=== PATIENT | male | born 1945 | race Caucasian/White ===

== ENCOUNTER 2017-08-19 10:43 | Day surgery (SDC) | payer MEDICARE, OTHER ==
[~2017-08-19 10:43] MED LIST: CHONDR SU A NA/HYALUR INTRAOC KIT (SURGICARE) ONE; EPINEPHRINE INJ/PF 1 MG/1 ML AMPULE ONE; KETOROLAC TROMETHAMINE 0.45% 4 DROP/0.4 ML DROPERETTE OS PRN; LIDOCAINE 1% INJ-PF (10 MG/ML) 30 ML SDV ONE; TOBRAMYCIN SULFATE/DEXAMETH OPH OINTMENT 3.5 GM ONE
[2017-08-19] MEDS: TROPICAMIDE 1% OPH SOLN 3 ML OS PRN ×3 (11:36→11:52)
[2017-08-19] MEDS: CYCLOPENTOLATE 0.2%/PHENYLEPHRINE 1% OPH SOLN 2 ML OS PRN ×3 (11:36→11:51)
[2017-08-19] MEDS: BESIFLOXACIN HCL 0.6% OPH SUSP 5 ML BOTTLE OS PRN ×3 (11:36→12:13)
[2017-08-19] MEDS: TETRACAINE HCL 0.5% OPH SOLN 0.6 ML DROPERETTE OS PRN ×3 (11:36→11:57)
[2017-08-19] MEDS ORDERED: MIDAZOLAM 2 MG/2 ML INJ ONE (11:42)
== END 2017-08-19 12:57 | disposition home or self-care (01) ==
LOC: SC 10:43
PROVIDERS: ATTEND Ophthalmology
PROC: 08RK3JZ Replacement of Left Lens with Synthetic Substitute, Percutaneous Approach (ICD-10-PCS; principal; 2017-08-19 12:00)
DX: H25.12 Age-related nuclear cataract, left eye (principal); M19.90 Unspecified osteoarthritis, unspecified site; J44.9 Chronic obstructive pulmonary disease, unspecified; Z88.5 Allergy status to narcotic agent; Z88.0 Allergy status to penicillin; Z88.8 Allergy status to other drugs, medicaments and biological substances; Z79.1 Long term (current) use of non-steroidal anti-inflammatories (NSAID)
CPT/HCPCS: 66984; V2630; J2250; J3490 ×3; A9270; J0171; 142

== ENCOUNTER 2017-09-02 06:22 | Day surgery (SDC) | payer MEDICARE, OTHER ==
[~2017-09-02 06:22] MED LIST changes: -CHONDR SU A NA/HYALUR INTRAOC KIT (SURGICARE) ONE; -EPINEPHRINE INJ/PF 1 MG/1 ML AMPULE ONE; +KETOROLAC TROMETHAMINE 0.45% 4 DROP/0.4 ML DROPERETTE OD PRN; -KETOROLAC TROMETHAMINE 0.45% 4 DROP/0.4 ML DROPERETTE OS PRN; -LIDOCAINE 1% INJ-PF (10 MG/ML) 30 ML SDV ONE; -TOBRAMYCIN SULFATE/DEXAMETH OPH OINTMENT 3.5 GM ONE
[2017-09-02] MEDS: CYCLOPENTOLATE 0.2%/PHENYLEPHRINE 1% OPH SOLN 2 ML OD PRN ×3 (06:40→07:00)
[2017-09-02] MEDS: TETRACAINE HCL 0.5% OPH SOLN 0.6 ML DROPERETTE OD PRN ×3 (06:40→07:29)
[2017-09-02] MEDS: TROPICAMIDE 1% OPH SOLN 3 ML OD PRN ×3 (06:40→07:00)
[2017-09-02] MEDS: BESIFLOXACIN HCL 0.6% OPH SUSP 5 ML BOTTLE OD PRN ×3 (06:41→07:50)
[2017-09-02] MEDS ORDERED: ALBUTEROL SULFATE 0.083% NEB 2.5 MG/3 ML AMPUL NEB ONE (07:05)
[2017-09-02] MEDS ORDERED: MIDAZOLAM 2 MG/2 ML INJ ONE (07:06)
[2017-09-02] MEDS ORDERED: FENTANYL CITRATE INJ/PF 100 MCG/2 ML AMPUL ONE (07:07)
[2017-09-02] MEDS ORDERED: EPINEPHRINE INJ/PF 1 MG/1 ML AMPULE ONE (07:12)
[2017-09-02] MEDS ORDERED: BESIFLOXACIN HCL 0.6% OPH SUSP 5 ML BOTTLE ONE (07:12)
[2017-09-02] MEDS ORDERED: LIDOCAINE 1% INJ-PF (10 MG/ML) 30 ML SDV ONE (07:12)
[2017-09-02] MEDS ORDERED: CHONDR SU A NA/HYALUR INTRAOC KIT (SURGICARE) ONE (07:12)
[2017-09-02] MEDS ORDERED: TOBRAMYCIN SULFATE/DEXAMETH OPH OINTMENT 3.5 GM ONE (07:13)
== END 2017-09-02 08:35 | disposition home or self-care (01) ==
LOC: SC 06:22
PROVIDERS: ATTEND Ophthalmology
PROC: 08RJ3JZ Replacement of Right Lens with Synthetic Substitute, Percutaneous Approach (ICD-10-PCS; principal; 2017-09-02 07:30)
DX: H25.11 Age-related nuclear cataract, right eye (principal); Z98.42 Cataract extraction status, left eye; M19.90 Unspecified osteoarthritis, unspecified site; Z79.1 Long term (current) use of non-steroidal anti-inflammatories (NSAID); Z88.5 Allergy status to narcotic agent; Z88.0 Allergy status to penicillin; Z88.2 Allergy status to sulfonamides
CPT/HCPCS: 66984; V2630; J2250; J3490 ×3; A9270 ×3; J0171; J3010; 142

== ENCOUNTER 2018-08-12 13:05 | Inpatient (IN) | payer MEDICARE, OTHER ==
[2018-08-12 13:55] LABS: VENOUS BLOOD HCO3 32.5 mmol/L (20-32); VENOUS BLOOD PCO2 44.8 mmHg (35-63); VENOUS BLOOD PH 7.48 (7.30-7.42)
[2018-08-12 14:03] LABS: ALANINE AMINOTRANSFERASE 15 U/L (21-72); ALBUMIN 3.2 g/dL (3.5-5.0); ALKALINE PHOSPHATASE 110 U/L (38-126); ANION GAP 9 (5-19); ASPARTATE AMINO TRANSFERASE 36 U/L (17-59); BILIRUBIN,DIRECT 0.4 mg/dL (0.0-0.4); BILIRUBIN,TOTAL 0.5 mg/dL (0.2-1.3); BLOOD UREA NITROGEN 16 mg/dL (7-20); CALCIUM 8.7 mg/dL (8.4-10.2); CARBON DIOXIDE 30 mmol/L (22-30); CHLORIDE 96 mmol/L (98-107); CREATINE KINASE 26 U/L (55-170); GLUCOSE 131 mg/dL (75-110); POTASSIUM 4.3 mmol/L (3.6-5.0); SODIUM 135.4 mmol/L (137-145); TOTAL PROTEIN 6.1 g/dL (6.3-8.2)
[2018-08-12 14:14] LABS: CREATINE KINASE MB 0.79 ng/mL (<4.55); TROPONIN I 0.014 ng/mL
--- NOTE | 2018-08-12 14:15 | RADIOLOGY REPORT (SQ) ---
EXAM DESCRIPTION: CHEST SINGLE VIEW COMPLETED DATE/TIME: 08/12/2018 2:06 pm REASON FOR STUDY: Shortness of Breath COMPARISON: None. EXAM PARAMETERS: NUMBER OF VIEWS: One view. TECHNIQUE: Single frontal radiographic view of the chest acquired. RADIATION DOSE: NA LIMITATIONS: None. FINDINGS: LUNGS AND PLEURA: Marked loss of volume on the left. Cannot exclude a small left pleural effusion. There is opacification in the left lower lung field. The right lung is hyperexpanded and there is perhaps ill-defined opacification in the medial aspect of the right base. MEDIASTINUM AND HILAR STRUCTURES: No masses. Contour normal. HEART AND VASCULAR STRUCTURES: Heart normal in size. Normal vasculature. BONES: No acute findings. HARDWARE: None in the chest. OTHER: No other significant finding. IMPRESSION: Marked loss of volume on the left. Lobectomy. Cannot exclude airspace disease in the l eft base. Cannot exclude small left pleural effusion. Cannot exclude minimal airspace disease in th e medial right base. TECHNICAL DOCUMENTATION: JOB ID: [id number] [employer]- All Rights Reserved Reading location - IP/workstation name: [email or web address]
[2018-08-12 14:45] LABS: ARTERIAL BLOOD BASE EXCESS 7.3 mmol/L; ARTERIAL BLOOD H2CO3 1.19 mmol/L (1.05-1.35); ARTERIAL BLOOD HCO3 30.9 mmol/L (20-24); ARTERIAL BLOOD PCO2 39.6 mmHg (35-45); ARTERIAL BLOOD PH 7.51 (7.35-7.45); ARTERIAL BLOOD PO2 59.5 mmHg (80-100); ARTERIAL BLOOD TOTAL CO2 32.1 mmol/L (23-27)
[2018-08-12 14:46] LABS: ARTERIAL BLOOD FIO2 5L
--- NOTE | 2018-08-12 15:09 | ER Document Report ---
ED General <DION DOLL A - Last Filed: 08/12/18 17:44> - General TRAVEL OUTSIDE OF THE [place] IN LAST 30 DAYS: No <ADOLPH SINGLETON A - Last Filed: 08/12/18 18:41> - General Chief Complaint: Shortness Of Breath Stated Complaint: SHORTNESS OF BREATH Time Seen by Provider: 08/12/18 13:53 - HPI Notes: Patient is a 72-year-old male that presents to the emergency department for chief complaint of chest pain and shortness of breath. Patient has been having intermittent chest pain throughout today. He did have EMS to the house earlier but declined transportation to the hospital. Later patient became more diaphoretic and short of breath. He has lung cancer and had left lobectomy on 07/[address] Christianson at [facility]. Patient was discharged from [facility] on 08/05/18. He states he has had no improvement since getting home but feels he is now getting worse. He is currently not experiencing the chest pain. Patient states he wears 2 L of oxygen at rest and 3 when he is up ambulating. Patient was on BiPAP initially with EMS for increased work of breathing however they are machine broke and he was placed on nasal cannula. Patient does not wish to be placed back on BiPAP at this time. He denies any fevers, vomiting, abdominal pain and dysuria Past Medical History: Lung carcinoma, COPD Past Surgical History: Left lobectomy Social History: Reviewed in chart Family History: Reviewed and noncontributory for presenting illness Allergies: Reviewed, see documented allergy list. REVIEW OF SYSTEMS: CONSTITUTIONAL : No fever No chills diaphoresis No recent illness EENT: No vision changes No congestion No sore throat CARDIOVASCULAR: chest pain No palpitations RESPIRATORY: shortness of breath No cough difficulty breathing GASTROINTESTINAL: No abdominal pain No nausea No vomiting No diarrhea GENITOURINARY: No dysuria No hematuria No difficulty urinating MUSCULOSKELETAL: No back pain No leg pain No arm pain SKIN: No rashes No lesions LYMPHATIC: No swollen, enlarged glands. NEUROLOGICAL: No lightheadedness No headache No weakness No paresthesias PSYCHIATRIC: No anxiety No depression PHYSICAL EXAMINATION: Vital signs reviewed, nursing noted reviewed. GENERAL: Diaphoretic, ill-appearing, in moderate distress HEAD: Atraumatic, normocephalic. EYES: Eyes appear normal, extraocular movements intact, sclera anicteric, conjunctiva are normal. ENT: nares patent, oropharynx clear without exudates. Dry mucous membranes. NECK: Normal range of motion, supple without lymphadenopathy LUNGS: Diminished breath sounds with expiratory wheezing bilaterally, tachypnea, moderate accessory muscle use HEART: Tachycardic rate and regular rhythm without murmurs ABDOMEN: Soft, nontender, normoactive bowel sounds. No rebound, guarding, or rigidity. No masses appreciated. EXTREMITIES: Nontender, good range of motion, no pitting or edema. NEUROLOGICAL: No focal neurological deficits. Moves all extremities spontaneously Motor and sensory grossly intact on exam. PSYCH: Normal mood, normal affect. SKIN: Warm, Dry, normal turgor, no rashes or lesions noted on exposed skin (ADOLPH SINGLETON) - Related Data Allergies/Adverse Reactions: Penicillins Allergy (Severe, Verified 09/02/17 06:35) shock clarithromycin Allergy (Verified 08/19/17 11:41) fluconazole [From Diflucan] Allergy (Verified 08/19/17 11:41) Tachycardia indomethacin [From Indocin] Allergy (Verified 08/19/17 11:41) Migraine meperidine [From Demerol] Allergy (Verified 08/19/17 11:41) Syncope pseudoephedrine [From Sudafed] Allergy (Verified 09/02/17 06:35) tremor Past Medical History - Social History Family History: Reviewed & Not Pertinent <DION DOLL - Last Filed: 08/12/18 17:44> - Social History Smoking Status: Unknown if Ever Smoked Patient has suicidal ideation: No Patient has homicidal ideation: No - Past Medical History Cardiac Medical History: Denies: Hx Heart Attack, Hx Hypertension Pulmonary Medical History: Denies: Hx Asthma Neurological Medical History: Denies: Hx Cerebrovascular Accident, Hx Seizures Renal/ Medical History: Denies: Hx Peritoneal Dialysis GI Medical History: Denies: Hx Hepatitis, Hx Hiatal Hernia, Hx Ulcer Infectious Medical History: Denies: Hx Hepatitis Past Surgical History: Denies: Hx Open Heart Surgery, Hx Pacemaker <ADOLPH SINGLETON - Last Filed: 08/12/18 18:41> - Vital signs Vitals: Temp Resp BP Pulse Ox 98.0 F 23 H 103/62 89 L 08/12/18 13:13 08/12/18 13:13 08/12/18 13:13 08/12/18 13:13 Course - Laboratory Result Diagrams: 08/12/18 16:07 08/12/18 13:15 <DION DOLL - Last Filed: 08/12/18 17:44> - Laboratory Result Diagrams: 08/12/18 16:07 08/12/18 13:15 <SINGLETONADOLPH Charlette - Last Filed: 08/12/18 18:41> - Re-evaluation Re-evalutation: Patient was reportedly accepted for transfer. Transfer center calls back stating that it is going to be several hours until the patient would have a bed. Still have not been able to talk with patient's cardiothoracic surgeon, Dr. Christianson. I have spent a significant amount of time at the bedside talking to the family as well as the patient. At this time I am making the patient a full code. Patient has not seen oncology. This is a recent diagnosis of lung cancer and is in the acute postoperative phase. There is potentially could have a pulmonary embolism. At this time I am repeating the CTA of the chest. Given him another breathing treatment. We will treat him with some pain medication. Will attempt to consult with Karrie Cooley with regards to this patient. 08/12/18 17:29 (DION DOLL) 08/12/18 15:06 Vitals reviewed. Nursing notes reviewed. Patient was hypoxic when EMS arrived at 70% on his home 3 L nasal cannula oxygen. They did place him on CPAP which he was tolerating until the machine broke. Patient does not wish to be placed back on CPAP currently. He is oxygenating at the low 90s on 5 L nasal cannula. He does have moderate increased work of breathing and is diaphoretic. Patient was given aerosols and Solu-Medrol for COPD. The Solu-Medrol was given by EMS prior to arrival. On reevaluation he reports no improvement of symptoms. His oxygen status is the same. ABG shows hypoxia. I again recommended BiPAP which he is hoping to refrain from using still. I had a long conversation with alexandria wahl and his family regarding CODE STATUS. He does wish to have chest compression performed and states he is not ready to but does not want to be placed on the ventilator. He understands that without intubation in certain situations he may go into cardiac arrest which he is okay with. Patient expresses a desire to not be in a vegetative state on a ventilator. Because of his extensive care at [facility] including cardiothoracic surgery he will be transferred back to [facility] for further pulmonary care. Patient in agreement with this plan. I currently have a call out to [facility] and I am awaiting callback for transfer. Laboratory 08/12/18 08/12/18 08/12/18 13:15 13:15 13:15 Carbonic Acid HCO3/H2CO3 Ratio ABG pH ABG pCO2 ABG pO2 ABG HCO3 ABG Total CO2 ABG O2 Saturation ABG Base Excess VBG pH VBG pCO2 VBG HCO3 VBG Base Excess FiO2 Sodium 135.4 L Potassium 4.3 Chloride 96 L Carbon Dioxide 30 Anion Gap 9 BUN 16 Creatinine 0.69 Est GFR ( Amer) > 60 Est GFR (Non-Af Amer) > 60 Glucose 131 H Lactic Acid 1.5 Calcium 8.7 Total Bilirubin 0.5 Direct Bilirubin 0.4 Neonat Total Bilirubin Not Reportable Neonat Direct Bilirubin Not Reportable Neonat Indirect Bili Not Reportable AST 36 ALT 15 L Alkaline Phosphatase 110 Creatine Kinase 26 L CK-MB (CK-2) 0.79 Troponin I 0.014 NT-Pro-B Natriuret Pep 996 H Total Protein 6.1 L Albumin 3.2 L 08/12/18 08/12/18 13:15 14:18 Carbonic Acid 1.19 HCO3/H2CO3 Ratio 25:1 ABG pH 7.51 H ABG pCO2 39.6 ABG pO2 59.5 L ABG HCO3 30.9 H ABG Total CO2 32.1 H ABG O2 Saturation 93.0 L ABG Base Excess 7.3 VBG pH 7.48 H VBG pCO2 44.8 VBG HCO3 32.5 H VBG Base Excess 8.0 FiO2 5L Sodium Potassium Chloride Carbon Dioxide Anion Gap BUN Creatinine Est GFR ( Amer) Est GFR (Non-Af Amer) Glucose Lactic Acid Calcium Total Bilirubin Direct Bilirubin Neonat Total Bilirubin Neonat Direct Bilirubin Neonat Indirect Bili AST ALT Alkaline Phosphatase Creatine Kinase CK-MB (CK-2) Troponin I NT-Pro-B Natriuret Pep Total Protein Albumin Chest X-Ray 08/12/18 13:37 IMPRESSION: Marked loss of volume on the left. Lobectomy. Cannot exclude airspace disease in the left base. Cannot exclude small left pleural effusion. Cannot exclude minimal airspace disease in the medial right base. Patients care signed over to Dr. Doll, plan to transfer to [facility] for CT surgery care. Awaiting call back from CT surgery. (ADOLPH SINGLETON) - Vital Signs Vital signs: Temp Pulse Resp BP Pulse Ox 98.0 F 23 H 103/62 88 L 08/12/18 13:13 08/12/18 13:13 08/12/18 13:13 08/12/18 13:40 - Laboratory Laboratory results interpreted by me: 08/12/18 08/12/18 08/12/18 13:15 13:15 13:15 WBC RBC Hgb Hct RDW Plt Count Seg Neuts % (Manual) Lymphocytes % (Manual) Monocytes % (Manual) Abs Neuts (Manual) ABG pH ABG pO2 ABG HCO3 ABG Total CO2 ABG O2 Saturation VBG pH 7.48 H VBG HCO3 32.5 H Sodium 135.4 L Chloride 96 L Glucose 131 H ALT 15 L Creatine Kinase 26 L NT-Pro-B Natriuret Pep 996 H Total Protein 6.1 L Albumin 3.2 L 08/12/18 08/12/18 14:18 16:07 WBC 13.3 H RBC 4.22 L Hgb 11.7 L Hct 35.7 L RDW 21.4 H Plt Count 558 H Seg Neuts % (Manual) 95 H Lymphocytes % (Manual) 4 L Monocytes % (Manual) 1 L Abs Neuts (Manual) 12.6 H ABG pH 7.51 H ABG pO2 59.5 L ABG HCO3 30.9 H ABG Total CO2 32.1 H ABG O2 Saturation 93.0 L VBG pH VBG HCO3 Sodium Chloride Glucose ALT Creatine Kinase NT-Pro-B Natriuret Pep Total Protein Albumin - EKG Interpretation by Me Additional EKG results interpreted by me: 08/12/18 15:11 Interpreted by myself [id number]: Normal sinus rhythm, rate 80, normal axis, no ectopy, diffuse T wave flattening, no STEMI (ADOLPH SINGLETON) Critical Care Note - Critical Care Note Total time excluding time spent on procedures (mins): 36 <ADOLPH SINGLETON - Last Filed: 08/12/18 18:41> - Critical Care Note Comments: 36 Minutes of critical care time spent in direct contact evaluating and reevaluating the patient, treating symptoms, reviewing labs and studies and speaking with family and consultants excluding any procedures. Patient has had potential for respiratory decompensation. Multiple conversations with patient, family and specialty services (ADOLPH SINGLETON) Discharge <DION DOLL - Last Filed: 08/12/18 17:44> <ADOLPH SINGLETON - Last Filed: 08/12/18 18:41> - Discharge Clinical Impression: Hypoxia, Respiratory distress, Pleural effusion, left Dyspnea Qualifiers: Dyspnea type: shortness of breath Qualified Code(s): R06.02 - Shortness of breath Condition: Stable Disposition: ADMITTED INPATIENT
[2018-08-12] MEDS ORDERED: NORMAL SALINE 1000 ML 1,000 ML IV ONE (15:12)
[2018-08-12] MEDS ORDERED: ALBUTEROL SULFATE 0.083% NEB 2.5 MG/3 ML AMPUL NEB ONE ×2 (15:18→17:26)
[2018-08-12 16:39] LABS: HEMATOCRIT 35.7 % (37.9-51.0); HEMOGLOBIN 11.7 g/dL (13.5-17.0); MEAN CORPUSCULAR HEMOGLOBIN 27.7 pg (27.0-33.4); MEAN CORPUSCULAR HGB CONC 32.7 g/dL (32.0-36.0); MEAN CORPUSCULAR VOLUME 85 fl (80-97); PLATELET COUNT 558 10^3/uL (150-450); RED BLOOD COUNT 4.22 10^6/uL (4.35-5.55); RED CELL DISTRIBUTION WIDTH 21.4 % (11.5-14.0); WHITE BLOOD COUNT 13.3 10^3/uL (4.0-10.5)
[2018-08-12 17:07] LABS: ABSOLUTE LYMPHOCYTES# (MANUAL) 0.5 10^3/uL (0.5-4.7); ABSOLUTE MONOCYTES # (MANUAL) 0.1 10^3/uL (0.1-1.4); ABSOLUTE NEUTROPHILS# (MANUAL) 12.6 10^3/uL (1.7-8.2); BASOPHILS % (MANUAL) 0 % (0-2); EOSINOPHILS % (MANUAL) 0 % (0-6); LYMPHOCYTES % (MANUAL) 4 % (13-45); MONOCYTES % (MANUAL) 1 % (3-13); SEGMENTED NEUTROPHILS % (MAN) 95 % (42-78); TOTAL CELLS COUNTED 100
[2018-08-12 17:08] LABS: ANISOCYTOSIS 3+; OVALOCYTES SLIGHT; PLATELET COMMENT INCREASED; POIKILOCYTOSIS SLIGHT; TARGET CELLS SLIGHT
[2018-08-12] MEDS ORDERED: FENTANYL CITRATE INJ/PF 100 MCG/2 ML AMPUL IV ONE (17:27)
[2018-08-12] MEDS ORDERED: KETOROLAC TROMETHAMINE INJ/PF 30 MG/1 ML SDV IV ONE (17:27)
[2018-08-12] MEDS ORDERED: LEVOFLOXACIN 500 MG/D5W RTU 500 MG/100 ML RTUPB IV ONE (18:00)
--- NOTE | 2018-08-12 18:01 | ER Document Report ---
ED General - General Chief Complaint: Shortness Of Breath Stated Complaint: SHORTNESS OF BREATH Time Seen by Provider: 08/12/18 13:53 Notes: Asked to come to the bedside to evaluate patient who is set up for transfer. (Please see Dr. Blancas's note for further evaluation.) Patient feels a little bit better at this time. Initially had oxygen saturations in the 70s. Received breathing treatments and Solu-Medrol. Patient is approximately 3 weeks postop from lung resection for adenocarcinoma. Has not seen oncology yet. Patient has been seen at [facility] in [facility]. TRAVEL OUTSIDE OF THE [place] IN LAST 30 DAYS: No - HPI Onset: Just prior to arrival Onset/Duration: Gradual, Worse Quality of pain: Achy Severity: Severe Pain Level: 5 Associated symptoms: Shortness of breath - Related Data Allergies/Adverse Reactions: Penicillins Allergy (Severe, Verified 09/02/17 06:35) shock clarithromycin Allergy (Verified 08/19/17 11:41) fluconazole [From Diflucan] Allergy (Verified 08/19/17 11:41) Tachycardia indomethacin [From Indocin] Allergy (Verified 08/19/17 11:41) Migraine meperidine [From Demerol] Allergy (Verified 08/19/17 11:41) Syncope pseudoephedrine [From Sudafed] Allergy (Verified 09/02/17 06:35) tremor Past Medical History - General Information source: Patient, Relative - Social History Smoking Status: Former Smoker Frequency of alcohol use: None Drug Abuse: None Lives with: Family, Spouse/Significant other Family History: Reviewed & Not Pertinent Patient has suicidal ideation: No Patient has homicidal ideation: No - Past Medical History Cardiac Medical History: Denies: Hx Heart Attack, Hx Hypertension Pulmonary Medical History: Denies: Hx Asthma Neurological Medical History: Denies: Hx Cerebrovascular Accident, Hx Seizures Renal/ Medical History: Denies: Hx Peritoneal Dialysis Malignancy Medical History: Reports Hx Lung Cancer GI Medical History: Denies: Hx Hepatitis, Hx Hiatal Hernia, Hx Ulcer Infectious Medical History: Denies: Hx Hepatitis Past Surgical History: Denies: Hx Open Heart Surgery, Hx Pacemaker Review of Systems - Review of Systems Notes: Constitutional: denies: Chills, Diaphoresis, Fever, + Malaise, Weakness EENT: denies: Eye discharge, Blurred vision, Tearing, Double vision, Nose congestion, Nose discharge, Throat swelling, Mouth pain Cardiovascular: denies: Palpitations, Heart racing, Orthopnea, Dyspnea, Chest pain Respiratory: denies: Cough, +Hurts to breathe, +Wheezing, + Shortness of breath Gastrointestinal: denies: Abdominal pain, Diarrhea, Nausea, Vomiting, Black stools, bright red blood in stool Genitourinary: denies: Burning, Dysuria, Discharge, Frequency, Flank pain, Hematuria Musculoskeletal: denies: Joint pain, Joint swelling, Muscle pain, Muscle stiffness, +back pain Hematologic/Lymphatic: denies: Anemia, Easy bleeding, Easy bruising, Blood clots Neurological/Psychological: denies: Confusion, Dementia, Depression, Loss of consciousness Skin: No lesions, no masses, no skin breakdown, no abscesses Physical Exam - Vital signs Vitals: Temp Resp BP Pulse Ox 98.0 F 23 H 103/62 89 L 08/12/18 13:13 08/12/18 13:13 08/12/18 13:13 08/12/18 13:13 Interpretation: Tachycardic, Tachypneic - General General appearance: Alert In distress: Moderate Notes: Frail, cachectic - HEENT Head: Normocephalic, Atraumatic Eyes: Normal Pupils: PERRL - Respiratory Respiratory status: Respiratory distress, Tachypnea Chest status: Nontender Breath sounds: Rales Chest palpation: Normal - Cardiovascular Rhythm: Tachycardia Heart sounds: Normal auscultation Murmur: No - Abdominal Inspection: Normal Distension: No distension Bowel sounds: Normal Tenderness: Nontender Organomegaly: No organomegaly - Back Back: Normal, Nontender - Extremities General upper extremity: Normal inspection, Nontender, Normal color, Normal ROM, Normal temperature General lower extremity: Normal inspection, Nontender, Normal color, Normal ROM, Normal temperature. No: Jan's sign - Neurological Neuro grossly intact: Yes Cognition: Normal Orientation: AAOx4 [place] Coma Scale Eye Opening: Spontaneous [place] Coma Scale Verbal: Oriented [place] Coma Scale Motor: Obeys Commands [place] Coma Scale Total: 15 Speech: Normal Motor strength normal: LUE, RUE, LLE, RLE Sensory: Normal - Psychological Associated symptoms: Normal affect, Normal mood - Skin Skin Temperature: Warm Skin Moisture: Dry Skin Color: Normal Course - Re-evaluation Re-evalutation: 08/12/18 18:03 Long discussion had at the bedside. Patient is a full code now. No beds are available at [facility]. I did discuss the case with the ICU attending there. They do not believe that he meets criteria for ICU at their hospital. At this time I do feel patient needs to be admitted. I am ordering a CTA of the chest. Will start him on antibiotics. Still have not been able to speak with the cardiothoracic surgeon. Will speak with hospitalist here for admission. - Vital Signs Vital signs: Temp Pulse Resp BP Pulse Ox 97.8 F 30 H 103/79 91 L 08/12/18 20:06 08/12/18 20:01 08/12/18 20:00 08/12/18 20:00 - Laboratory Result Diagrams: 08/12/18 16:07 08/12/18 13:15 Laboratory results interpreted by me: 08/12/18 08/12/18 08/12/18 13:15 13:15 13:15 WBC RBC Hgb Hct RDW Plt Count Seg Neuts % (Manual) Lymphocytes % (Manual) Monocytes % (Manual) Abs Neuts (Manual) ABG pH ABG pO2 ABG HCO3 ABG Total CO2 ABG O2 Saturation VBG pH 7.48 H VBG HCO3 32.5 H Sodium 135.4 L Chloride 96 L Glucose 131 H ALT 15 L Creatine Kinase 26 L NT-Pro-B Natriuret Pep 996 H Total Protein 6.1 L Albumin 3.2 L 08/12/18 08/12/18 14:18 16:07 WBC 13.3 H RBC 4.22 L Hgb 11.7 L Hct 35.7 L RDW 21.4 H Plt Count 558 H Seg Neuts % (Manual) 95 H Lymphocytes % (Manual) 4 L Monocytes % (Manual) 1 L Abs Neuts (Manual) 12.6 H ABG pH 7.51 H ABG pO2 59.5 L ABG HCO3 30.9 H ABG Total CO2 32.1 H ABG O2 Saturation 93.0 L VBG pH VBG HCO3 Sodium Chloride Glucose ALT Creatine Kinase NT-Pro-B Natriuret Pep Total Protein Albumin Critical Care Note - Critical Care Note Total time excluding time spent on procedures (mins): 45 Comments: Tachycardia, hypoxia, consultation with specialist, Discharge - Discharge Clinical Impression: Hypoxia, Respiratory distress, Pleural effusion, left Dyspnea Qualifiers: Dyspnea type: shortness of breath Qualified Code(s): R06.02 - Shortness of breath Condition: Stable Disposition: ADMITTED INPATIENT Admitting Provider: Nayeliist [facility] Unit Admitted: ICU
[2018-08-12] MEDS ORDERED: ONDANSETRON HCL INJ/PF 4 MG/2 ML SDV IV PRN (18:37)
[2018-08-12] MEDS ORDERED: LORAZEPAM 0.5 MG TABLET PO PRN (18:43)
--- NOTE | 2018-08-12 19:01 | PDOC H&P ---
History of Present Illness Admission Date/PCP: 08/12/18 18:20 OLIVERIO TORRES MD Patient complains of: Came with shortness of breath and chest pain History of Present Illness: ESTEBAN CHOI is a 72 year old male with history of lung cancer with lung resection in the [facility] last month, history of anxiety disorder, chronic smoker came to the emergency room brought to the emergency room rather by the family members with complaints of increasing shortness of breath and chest pain. Family is also saying he has underlying COPD. This morning after eating amanda akfast he felt chest pain in the epigastric region chest pain was so bad 10 x 10 911 called the EMS came by the time patient was chest pain-free vital signs are stable and without further management EMS left again after lunch he is having the severe shortness of breath and chest pains compared to the family he feels like he is about to EMS was called again and they follow the pulse ox here is around 70% brought to the emergency room for further evaluation. In the emergency room he was initially placed on BiPAP and [facility] was notified and the ER physician talked to the surgeon they to transfer the patient unfortunately they do not have any beds available in the ICU in case if the patient is intubated here they are willing to accept the patient updated. So medical consult was called for admission to the ICU. I went to talk to the patient and the family members they want him a full code patient wants to be full code. Confirmed history the ER physician told me about shortness of breath and associated chest pains. CT of the chest was ordered in the ER and which was pending. The ABG shows P O2 of 59.5. PCO2 39.6. Patient is hyperventilating with pH of 7.5. Past Medical History Cardiac Medical History: Denies: Myocardial Infarction, Hypertension Pulmonary Medical History: Denies: Asthma Neurological Medical History: Denies: Seizures Malignancy Medical History: Reports: Lung Cancer GI Medical History: Denies: Hepatitis, Hiatal Hernia Hematology: Denies: Anemia, Sickle Cell Disease Past Surgical History Past Surgical History: Reports: Other - Patient has 2 back surgeries left-sided partial lung resection Denies: Pacemaker Social History Lives with: Family, Spouse/Significant other Smoking Status: Former Smoker Frequency of Alcohol Use: None Hx Recreational Drug Use: No Hx Prescription Drug Abuse: No - Advance Directive Resuscitation Status: Full Code Family History Family History: Reviewed & Not Pertinent Parental Family History Reviewed: Yes - daughter had a breast cancer. Children Family History Reviewed: Yes Sibling(s) Family History Reviewed.: Unknown Medication/Allergy Home Medications: Ascorbic Acid [Vitamin C] 1,000 mg PO DAILY 08/12/17 Cetirizine HCl [Allergy] 10 mg PO ASDIR PRN 08/12/17 Docusate Calcium [Stool Softener] 240 mg PO ASDIR PRN 08/12/17 Ibuprofen 800 mg PO ASDIR PRN 08/12/17 Allergies/Adverse Reactions: Penicillins Allergy (Severe, Verified 09/02/17 06:35) shock clarithromycin Allergy (Verified 08/19/17 11:41) fluconazole [From Diflucan] Allergy (Verified 08/19/17 11:41) Tachycardia indomethacin [From Indocin] Allergy (Verified 08/19/17 11:41) Migraine meperidine [From Demerol] Allergy (Verified 08/19/17 11:41) Syncope pseudoephedrine [From Sudafed] Allergy (Verified 09/02/17 06:35) tremor Review of Systems Constitutional: ABSENT: fever(s), headache(s), weight gain, weight loss Eyes: ABSENT: visual disturbances Ears: ABSENT: hearing changes Nose, Mouth, and Throat: ABSENT: sore throat Respiratory: PRESENT: cough Gastrointestinal: ABSENT: constipation, nausea, vomiting Psychiatric: ABSENT: anxiety, depression, homidical ideation, suicidal ideation Physical Exam Vital Signs: Temp Pulse Resp BP Pulse Ox 98.0 F 23 H 103/62 88 L 08/12/18 13:13 08/12/18 13:13 08/12/18 13:13 08/12/18 13:40 General appearance: PRESENT: no acute distress Eye exam: PRESENT: PERRLA Teeth exam: PRESENT: dental tenderness Neck exam: ABSENT: carotid bruit, JVD, lymphadenopathy, thyromegaly Respiratory exam: PRESENT: decreased breath sounds Cardiovascular exam: PRESENT: tachycardia GI/Abdominal exam: PRESENT: normal bowel sounds, soft. ABSENT: distended, guarding, mass, organolmegaly, rebound, tenderness Extremities exam: PRESENT: full ROM. ABSENT: calf tenderness, clubbing, pedal edema Neurological exam: PRESENT: alert, awake, oriented to person, oriented to place, oriented to time, oriented to situation, CN II-XII grossly intact. ABSENT: motor sensory deficit Psychiatric exam: PRESENT: appropriate affect, normal mood. ABSENT: homicidal ideation, suicidal ideation Results Laboratory Results: 08/12/18 16:07 08/12/18 13:15 08/12/18 08/12/18 08/12/18 13:15 13:15 13:15 WBC RBC Hgb Hct MCV MCH MCHC RDW Plt Count Seg Neutrophils % Lymphocytes % Monocytes % Eosinophils % Basophils % Absolute Neutrophils Absolute Lymphocytes Absolute Monocytes Absolute Eosinophils Absolute Basophils Carbonic Acid HCO3/H2CO3 Ratio ABG pH ABG pCO2 ABG pO2 ABG HCO3 ABG O2 Saturation ABG Base Excess VBG pH 7.48 H VBG pCO2 44.8 VBG HCO3 32.5 H VBG Base Excess 8.0 FiO2 Sodium 135.4 L Potassium 4.3 Chloride 96 L Carbon Dioxide 30 Anion Gap 9 BUN 16 Creatinine 0.69 Est GFR ( Amer) > 60 Est GFR (Non-Af Amer) > 60 Glucose 131 H Lactic Acid 1.5 Calcium 8.7 Total Bilirubin 0.5 AST 36 ALT 15 L Alkaline Phosphatase 110 Total Protein 6.1 L Albumin 3.2 L 08/12/18 08/12/18 14:18 16:07 WBC 13.3 H RBC 4.22 L Hgb 11.7 L Hct 35.7 L MCV 85 MCH 27.7 MCHC 32.7 RDW 21.4 H Plt Count 558 H Seg Neutrophils % Not Reportable Lymphocytes % Not Reportable Monocytes % Not Reportable Eosinophils % Not Reportable Basophils % Not Reportable Absolute Neutrophils Not Reportable Absolute Lymphocytes Not Reportable Absolute Monocytes Not Reportable Absolute Eosinophils Not Reportable Absolute Basophils Not Reportable Carbonic Acid 1.19 HCO3/H2CO3 Ratio 25:1 ABG pH 7.51 H ABG pCO2 39.6 ABG pO2 59.5 L ABG HCO3 30.9 H ABG O2 Saturation 93.0 L ABG Base Excess 7.3 VBG pH VBG pCO2 VBG HCO3 VBG Base Excess FiO2 5L Sodium Potassium Chloride Carbon Dioxide Anion Gap BUN Creatinine Est GFR ( Amer) Est GFR (Non-Af Amer) Glucose Lactic Acid Calcium Total Bilirubin AST ALT Alkaline Phosphatase Total Protein Albumin 08/12/18 08/12/18 13:15 13:15 Creatine Kinase 26 L CK-MB (CK-2) 0.79 Troponin I 0.014 NT-Pro-B Natriuret Pep 996 H Impressions: Chest X-Ray 08/12/18 13:37 IMPRESSION: Marked loss of volume on the left. Lobectomy. Cannot exclude airspace disease in the left base. Cannot exclude small left pleural effusion. Cannot exclude minimal airspace disease in the medial right base. Assessment & Plan - Diagnosis (1) Lung cancer Qualifiers: Laterality: left Is this a current diagnosis for this admission?: Yes Plan: 08/12/2018 patient and family giving history of stage I lung cancer localized to the left lower lobe status post lobectomy was done around [facility] last year at [facility]. Patient did not have any radiation or chemotherapy he is able to see an oncologist after the surgery. Came in with severe shortness of breath. With hypoxia pulse ox in the 70s did ABG pulse pO2 is 59.5. (2) Acute respiratory failure Qualifiers: Respiratory failure complication: hypoxia Qualified Code(s): J96.01 - Acute respiratory failure with hypoxia Is this a current diagnosis for this admission?: Yes Plan: 08/12/2018 patient came in with acute respiratory failure with hypoxia pulse ox on room air is 70%, and ABG PCO2 is 59.5. Acute respiratory failure may be secondary to recent left lower lobe lobectomy and a loss of lung volume. Plan is to put him in IMCU to start him on a BiPAP as needed if necessary patient and family agreed for the intubation. Consultation with Dr. Martinez was placed. We are going to do the daily ABGs. Started on IV steroids 40 mg daily 8 hours and Xopenex nebulizations every 8 hours. Started on levofloxacin 500 mg IV daily. Going to do the daily ABGs. (3) COPD (chronic obstructive pulmonary disease) Is this a current diagnosis for this admission?: Yes Plan: 08/12/2018 patient has history of COPD not on home oxygen COPD most likely secondary to chronic smoking he stopped smoking a few months ago but he has 50 years of smoking history. Patient does not want to be on nicotine patch. (4) Anxiety Is this a current diagnosis for this admission?: Yes Plan: 08/12/2018 family is complaining that patient has anxiety disorder he is on alprazolam at home I started him on alprazolam 0.5 mg 3 times a day as needed for anxiety episodes. (5) Sepsis Is this a current diagnosis for this admission?: Yes Plan: 08/12 2018 patient came in with hypoxia with pulse ox of 70%, tachycardia with heart rate more than 110 elevated WBC of 13,000+ but lactic acid is 1.5 patient was started on levofloxacin 500 mg IV daily blood cultures sputum cultures were requested to rule out sepsis. - Time Time Spent: 50 to 70 Minutes Smoking Cessation Education: over 10 minutes Medications reviewed and adjusted accordingly: Yes Anticipated discharge: Home
[2018-08-12 19:56] LABS: APPEARANCE,URINE CLEAR; BILIRUBIN,URINE NEGATIVE (NEGATIVE); COLOR,URINE YELLOW; GLUCOSE, URINE NEGATIVE (NEGATIVE); KETONES,URINE 20 mg/dL (NEGATIVE); LEUKOCYTE ESTERASE,URINE NEGATIVE (NEGATIVE); NITRITE,URINE NEGATIVE (NEGATIVE); PROTEIN,URINE NEGATIVE (NEGATIVE); URINE SPECIFIC GRAVITY 1.015; UROBILINOGEN,URINE NEGATIVE mg/dL (<2.0)
--- NOTE | 2018-08-12 20:00 | RADIOLOGY REPORT (SQ) ---
EXAM DESCRIPTION: CTA CHEST COMPLETED DATE/TIME: 08/12/2018 7:19 pm REASON FOR STUDY: sob COMPARISON: None. TECHNIQUE: CT scan of the chest performed using helical scanning technique with dynamic intravenous contrast injection. Images reviewed with lung, soft tissue and bone windows. Reconstructed coronal and sagittal MPR images reviewed. Additional 3 dimensional post-processing performed to develop Maximal Intensity Projection images (WA P). All images stored on PACS. All CT scanners at this facility use dose modulation, iterative reconstruction, and/or weight based d osing when appropriate to reduce radiation dose to as low as reasonably achievable (ALARA). [facility]: Dose Right [facility]: CareDose [facility]: Dose Right [facility]: Teradose 4D [facility]: OneStopWeb CONTRAST TYPE AND DOSE: contrast/concentration: Isovue 350.00 mg/ml; Total Contrast Delivered: 105.0 ml; Total Saline Delivered: 179.4 ml Contrast bolus adequate for pulmonary arteries and aorta. RENAL FUNCTION: BUN 16 creatinine 0.69 08/12/2018 RADIATION DOSE: CT Rad equipment meets quality standard of care and radiation dose reduction techniq ues were employed. CTDIvol: 14.3 - 52.9 mGy. DLP: 1282 mGy-cm. . LIMITATIONS: None. FINDINGS: LUNGS AND PLEURA: There is decreased volume in the left hemithorax. There may be a small amount of aerated lung. There is marked atelectasis with large amount free air. There is some ill-d efined opacification in the left lower lobe. There is a left pleural effusion. There is marked cent rilobular emphysema in the right lung. There is dense opacification posteriorly in the right lung. AORTA AND GREAT VESSELS: No aneurysm. No dissection. HEART: No pericardial effusion. Moderate to marked coronary artery calcifications. PULMONARY ARTERIES: No emboli visualized in the main pulmonary arteries or the segmental branches. HILAR AND MEDIASTINAL STRUCTURES: No identified masses or abnormal nodes. HARDWARE: None in the chest. UPPER ABDOMEN: No significant findings. Limited exam. THYROID AND OTHER SOFT TISSUES: No masses. No adenopathy. BONES: No acute or significant finding. 3D MIPS: Confirm above findings. OTHER: No other significant finding. IMPRESSION: 1. There is no evidence of pulmonary emboli. 2. There are marked changes in the left hemithorax that are likely chronic but we have no earlier st udies. There is marked pneumothorax with very extensive atelectasis and only a small amount of aerat ed lung. Cannot entirely exclude a pneumonia in the left lower lobe. There is some pleural fluid. 3. Extensive pulmonary emphysema in the right lung. 4. Opacification the right lower lobe suggesting airspace disease, atelectasis versus consolidation. COMMENT: Quality ID # [id number]: Final reports with documentation of one or more dose reduction techniques (e.g., Automated exposure control, adjustment of the mA and/or kV according to patient size, use of iterative reconstruction technique) TECHNICAL DOCUMENTATION: JOB ID: [id number] [employer]- All Rights Reserved Reading location - IP/workstation name: [email or web address]
[2018-08-12 20:08] LABS: URINE AMPHETAMINES SCREEN NEGATIVE; URINE BARBITURATES SCREEN NEGATIVE; URINE BENZODIAZEPINES SCREEN UNCONFIRMED POSITIVE; URINE COCAINE SCREEN NEGATIVE; URINE MARIJUANA (THC) SCREEN NEGATIVE; URINE METHADONE SCREEN NEGATIVE; URINE PHENCYCLIDINE SCREEN NEGATIVE
[2018-08-12] MEDS: ACETAMINOPHEN 325 MG TABLET PO PRN (20:12)
[2018-08-12 20:23] LABS: CREATINE KINASE MB 0.75 ng/mL (<4.55); TROPONIN I 0.014 ng/mL
--- NOTE | 2018-08-12 21:08 | EKG REPORT ---
SEVERITY:- OTHERWISE NORMAL ECG - SINUS TACHYCARDIA : Confirmed by: Yesy Paiz MD 12-Aug-2018 21:07:44
[2018-08-12] MEDS: METHYLPREDNISOLONE INJ 40 MG/1 ML SDV IV SCH (21:36)
[2018-08-12] MEDS: FAMOTIDINE INJ/PF 20 MG/2 ML SDV IV SCH (21:37)
[2018-08-12] MEDS ORDERED: ZOLPIDEM TARTRATE 5 MG TABLET PO SCH (22:00)
[2018-08-13] MEDS: LEVALBUTEROL HCL NEB 1.25 MG/3 ML AMPUL NEB SCH ×3 (00:26→16:16)
[2018-08-13 01:53] LABS: CREATINE KINASE MB 0.96 ng/mL (<4.55); TROPONIN I 0.017 ng/mL
[2018-08-13] MEDS: ACETAMINOPHEN 325 MG TABLET PO PRN ×4 (04:01→19:56)
[2018-08-13] MEDS ORDERED: LORAZEPAM INJ 2 MG/1 ML VIAL IV PRN (04:55)
[2018-08-13] MEDS: METHYLPREDNISOLONE INJ 40 MG/1 ML SDV IV SCH ×3 (05:42→21:50)
[2018-08-13 06:08] LABS: ARTERIAL BLOOD BASE EXCESS 5.3 mmol/L; ARTERIAL BLOOD H2CO3 1.12 mmol/L (1.05-1.35); ARTERIAL BLOOD HCO3 28.6 mmol/L (20-24); ARTERIAL BLOOD O2 SATURATION 93.5 % (94-98); ARTERIAL BLOOD PCO2 37.3 mmHg (35-45); ARTERIAL BLOOD PO2 61.4 mmHg (80-100); ARTERIAL BLOOD TOTAL CO2 29.8 mmol/L (23-27)
[2018-08-13 06:09] LABS: ARTERIAL BLOOD FIO2 6L
--- NOTE | 2018-08-13 08:37 | PDOC CONSULTATION ---
Consultation Consult Date: 08/13/18 Consult reason:: Hematology/Oncology consultation was requested for patient with early stage lung cancer. History of Present Illness Admission Date/PCP: 08/12/18 18:20 OLIVERIO TORRES MD History of Present Illness: ESTEBAN CHOI is a 72 year old male who was diagnosed with a Stage I Lung Cancer a few months ago. He underwent Left upper lobectomy in [place] on Jun.19. His surgical course was complicated by infection and chronic drainage from the chest tubes. He was finally discharged from the hospital last week but has continued to go down hill. He was found to have hypoxia despite home air and was admitted last night. Although transfer to [place] was requested as we do not have thoracic surgery here, the hospital there is full. Over night, he has had difficulty with hallucinations due to ambien and difficulty with IV lines. Family is requesting PICC line insertion. Past Medical History Cardiac Medical History: Denies: Myocardial Infarction, Hypertension Pulmonary Medical History: Denies: Asthma Neurological Medical History: Denies: Seizures Malignancy Medical History: Reports: Lung Cancer GI Medical History: Denies: Hepatitis, Hiatal Hernia Hematology: Denies: Anemia, Sickle Cell Disease Past Surgical History Past Surgical History: Reports: Other - Patient has 2 back surgeries left-sided partial lung resection Denies: Pacemaker Social History Lives with: Family, Spouse/Significant other Smoking Status: Former Smoker Frequency of Alcohol Use: None Hx Recreational Drug Use: No Drugs: None Hx Prescription Drug Abuse: No - Advance Directive Resuscitation Status: Full Code Family History Family History: Reviewed & Not Pertinent Parental Family History Reviewed: Yes Children Family History Reviewed: Yes Sibling(s) Family History Reviewed.: Yes Medication/Allergy Home Medications: Ascorbic Acid [Vitamin C] 1,000 mg PO DAILY 08/12/17 Ibuprofen 800 mg PO TIDP PRN 08/12/17 Albuterol Sulfate [Ventolin 0.083% Neb 2.5 mg/3 mL Ampul] 3 ml IN QIDP PRN 08/12/18 Alprazolam [Xanax] 0.5 mg PO TIDP PRN 08/12/18 Aspirin [Ecotrin 325 mg EC Tablet] 325 mg PO DAILY 08/12/18 Docusate Sodium [Colace] 100 mg PO BIDP PRN 08/12/18 Furosemide [Lasix 20 mg Tablet] 20 mg PO DAILY 08/12/18 Loratadine [Claritin] 10 mg PO DAILY 08/12/18 Potassium Chloride 20 meq PO DAILY 08/12/18 Tramadol HCl [Ultram] 50 mg PO Q6 08/12/18 Allergies/Adverse Reactions: Penicillins Allergy (Severe, Verified 09/02/17 06:35) shock clarithromycin Allergy (Verified 08/19/17 11:41) fluconazole [From Diflucan] Allergy (Verified 08/19/17 11:41) Tachycardia indomethacin [From Indocin] Allergy (Verified 08/19/17 11:41) Migraine meperidine [From Demerol] Allergy (Verified 08/19/17 11:41) Syncope pseudoephedrine [From Sudafed] Allergy (Verified 09/02/17 06:35) tremor Review of Systems Constitutional: PRESENT: weakness. ABSENT: fever(s), headache(s) Eyes: PRESENT: visual disturbances Ears: ABSENT: hearing changes Nose, Mouth, and Throat: ABSENT: headache(s) Cardiovascular: PRESENT: dyspnea on exertion. ABSENT: chest pain Respiratory: PRESENT: dyspnea Gastrointestinal: ABSENT: abdominal pain Genitourinary: ABSENT: dysuria Integumentary: ABSENT: rash Neurological: PRESENT: confusion Psychiatric: PRESENT: hallucinations Physical Exam Vital Signs: Temp Pulse Resp BP Pulse Ox 97.4 F 105 H 20 142/74 H 94 08/13/18 05:24 08/13/18 02:00 08/13/18 06:00 08/13/18 05:39 08/13/18 06:00 Intake & Output 08/12/18 08/13/18 08/14/18 06:59 06:59 06:59 Intake Total 1100 Output Total 150 Balance 950 Weight 54.2 kg General appearance: PRESENT: mild distress, thin Head exam: PRESENT: normocephalic Eye exam: PRESENT: EOMI, PERRLA Mouth exam: PRESENT: tongue midline Neck exam: ABSENT: lymphadenopathy, tenderness Respiratory exam: PRESENT: tachypnea, other - Expiratory rales. No wheezes Cardiovascular exam: PRESENT: RRR GI/Abdominal exam: PRESENT: soft Extremities exam: ABSENT: pedal edema Neurological exam: PRESENT: alert, awake Psychiatric exam: PRESENT: appropriate affect Skin exam: PRESENT: other - diaphoretic Results Laboratory Results: 08/12/18 16:07 08/12/18 13:15 08/12/18 08/12/18 08/12/18 13:15 13:15 13:15 WBC RBC Hgb Hct MCV MCH MCHC RDW Plt Count Seg Neutrophils % Lymphocytes % Monocytes % Eosinophils % Basophils % Absolute Neutrophils Absolute Lymphocytes Absolute Monocytes Absolute Eosinophils Absolute Basophils Carbonic Acid HCO3/H2CO3 Ratio ABG pH ABG pCO2 ABG pO2 ABG HCO3 ABG O2 Saturation ABG Base Excess VBG pH 7.48 H VBG pCO2 44.8 VBG HCO3 32.5 H VBG Base Excess 8.0 FiO2 Sodium 135.4 L Potassium 4.3 Chloride 96 L Carbon Dioxide 30 Anion Gap 9 BUN 16 Creatinine 0.69 Est GFR ( Amer) > 60 Est GFR (Non-Af Amer) > 60 Glucose 131 H Lactic Acid 1.5 Calcium 8.7 Total Bilirubin 0.5 AST 36 ALT 15 L Alkaline Phosphatase 110 Total Protein 6.1 L Albumin 3.2 L Urine Color Urine Appearance Urine pH Ur Specific [place] Urine Protein Urine Glucose (UA) Urine Ketones Urine Blood Urine Nitrite Ur Leukocyte Esterase Urine WBC (Auto) 08/12/18 08/12/18 08/12/18 14:18 16:07 19:00 WBC 13.3 H RBC 4.22 L Hgb 11.7 L Hct 35.7 L MCV 85 MCH 27.7 MCHC 32.7 RDW 21.4 H Plt Count 558 H Seg Neutrophils % Not Reportable Lymphocytes % Not Reportable Monocytes % Not Reportable Eosinophils % Not Reportable Basophils % Not Reportable Absolute Neutrophils Not Reportable Absolute Lymphocytes Not Reportable Absolute Monocytes Not Reportable Absolute Eosinophils Not Reportable Absolute Basophils Not Reportable Carbonic Acid 1.19 HCO3/H2CO3 Ratio 25:1 ABG pH 7.51 H ABG pCO2 39.6 ABG pO2 59.5 L ABG HCO3 30.9 H ABG O2 Saturation 93.0 L ABG Base Excess 7.3 VBG pH VBG pCO2 VBG HCO3 VBG Base Excess FiO2 5L Sodium Potassium Chloride Carbon Dioxide Anion Gap BUN Creatinine Est GFR ( Amer) Est GFR (Non-Af Amer) Glucose Lactic Acid Calcium Total Bilirubin AST ALT Alkaline Phosphatase Total Protein Albumin Urine Color YELLOW Urine Appearance CLEAR Urine pH 5.0 Ur Specific [place] 1.015 Urine Protein NEGATIVE Urine Glucose (UA) NEGATIVE Urine Ketones 20 H Urine Blood NEGATIVE Urine Nitrite NEGATIVE Ur Leukocyte Esterase NEGATIVE Urine WBC (Auto) 1 08/13/18 05:56 WBC RBC Hgb Hct MCV MCH MCHC RDW Plt Count Seg Neutrophils % Lymphocytes % Monocytes % Eosinophils % Basophils % Absolute Neutrophils Absolute Lymphocytes Absolute Monocytes Absolute Eosinophils Absolute Basophils Carbonic Acid 1.12 HCO3/H2CO3 Ratio 25:1 ABG pH 7.50 H ABG pCO2 37.3 ABG pO2 61.4 L ABG HCO3 28.6 H ABG O2 Saturation 93.5 L ABG Base Excess 5.3 VBG pH VBG pCO2 VBG HCO3 VBG Base Excess FiO2 6L Sodium Potassium Chloride Carbon Dioxide Anion Gap BUN Creatinine Est GFR ( Amer) Est GFR (Non-Af Amer) Glucose Lactic Acid Calcium Total Bilirubin AST ALT Alkaline Phosphatase Total Protein Albumin Urine Color Urine Appearance Urine pH Ur Specific [place] Urine Protein Urine Glucose (UA) Urine Ketones Urine Blood Urine Nitrite Ur Leukocyte Esterase Urine WBC (Auto) 08/12/18 08/12/18 08/12/18 13:15 13:15 19:36 Creatine Kinase 26 L < 20 L CK-MB (CK-2) 0.79 Troponin I 0.014 NT-Pro-B Natriuret Pep 996 H 08/12/18 08/13/18 08/13/18 19:36 01:12 01:12 Creatine Kinase < 20 L CK-MB (CK-2) 0.75 0.96 Troponin I 0.014 0.017 NT-Pro-B Natriuret Pep Impressions: Chest X-Ray 08/12/18 13:37 IMPRESSION: Marked loss of volume on the left. Lobectomy. Cannot exclude airspace disease in the left base. Cannot exclude small left pleural effusion. Cannot exclude minimal airspace disease in the medial right base. Chest/Abdomen CTA 08/12/18 17:28 IMPRESSION: 1. There is no evidence of pulmonary emboli. 2. There are marked changes in the left hemithorax that are likely chronic but we have no earlier studies. There is marked pneumothorax with very extensive atelectasis and only a small amount of aerated lung. Cannot entirely exclude a pneumonia in the left lower lobe. There is some pleural fluid. 3. Extensive pulmonary emphysema in the right lung. 4. Opacification the right lower lobe suggesting airspace disease, atelectasis versus consolidation. Status: Image reviewed by me Assessment & Plan - Diagnosis (1) Lung cancer Qualifiers: Laterality: left Is this a current diagnosis for this admission?: Yes Plan: Early stage, has been surgically resected. No plans for further treatment at present. Will plan on surveillence CT scans in a few months. (2) Hypoxia Is this a current diagnosis for this admission?: Yes Plan: I will defer to primary team. Pulmonary has been consulted. I agree with plans to transfer back to his primary team in [place] when possible. - Plan Summary Plan Summary: I am happy to follow him locally in the future. Please call me with any stephanie rns. I will sign off.
[2018-08-13] MEDS ORDERED: DOCUSATE SODIUM 100 MG CAPSULE PO PRN (08:45)
[2018-08-13] MEDS ORDERED: PIPERACILLIN/TAZOBACTAM 3.375 GM VIAL IV SCH (08:45)
--- NOTE | 2018-08-13 09:02 | PDOC PROGRESS REPORT ---
Subjective Progress Note for:: 08/13/18 Subjective:: 72-year-old female with stage I lung cancer diagnosed 4 months ago and he underwent left upper lobectomy in the [facility] on June 19. His surgery was complicated by infection and chronic drainage from the chest tubes. He was recently discharged from the hospital 1 week ago, came to the emergency room last night with complaining of chest pain worsening shortness of breath. In the emergency room pulse oxes are found to be in the 70s and the ABG PCO2 is 59. Medical consult was called for further management. The surgical team was contacted after Karrie Cooley on they do not have any beds available in the ICU in the meantime we will put the patient here in the intensive care unit. No acute events in the last 24 hours. Patient is afebrile. CT of the chest was done yesterday report indicates marked pneumothorax but I spoke to Dr. Herman she compared the CTA done yesterday to the previous films and thinks it is postsurgical nothing new, she is going to add an addendum to the last night report. Are also suggestive of consolidation. Patient was started on levofloxacin 500 mg IV daily blood cultures ,sputum culture were requested yesterday. Reason For Visit: ACUTE RESPIRATORY FAILURE Physical Exam Vital Signs: Temp Pulse Resp BP Pulse Ox 98.1 F 104 H 19 148/74 H 94 08/13/18 08:00 08/13/18 08:00 08/13/18 08:00 08/13/18 08:00 08/13/18 08:00 Intake & Output 08/12/18 08/13/18 08/14/18 06:59 06:59 06:59 Intake Total 1100 118 Output Total 150 0 Balance 950 118 Weight 54.2 kg General appearance: PRESENT: mild distress Head exam: PRESENT: atraumatic Eye exam: PRESENT: PERRLA Mouth exam: PRESENT: dry mucosa Neck exam: ABSENT: carotid bruit, JVD, lymphadenopathy, thyromegaly Respiratory exam: PRESENT: decreased breath sounds, other - Decreased breath sounds both lung anne especially the left lung because of the left upper lobectomy. Cardiovascular exam: PRESENT: tachycardia GI/Abdominal exam: PRESENT: normal bowel sounds, soft. ABSENT: distended, guarding, mass, organolmegaly, rebound, tenderness Extremities exam: PRESENT: full ROM. ABSENT: calf tenderness, clubbing, pedal edema Psychiatric exam: PRESENT: anxious, normal mood Results Laboratory Results: 08/12/18 16:07 08/12/18 13:15 08/12/18 08/12/18 08/12/18 13:15 13:15 13:15 WBC RBC Hgb Hct MCV MCH MCHC RDW Plt Count Seg Neutrophils % Lymphocytes % Monocytes % Eosinophils % Basophils % Absolute Neutrophils Absolute Lymphocytes Absolute Monocytes Absolute Eosinophils Absolute Basophils Carbonic Acid HCO3/H2CO3 Ratio ABG pH ABG pCO2 ABG pO2 ABG HCO3 ABG O2 Saturation ABG Base Excess VBG pH 7.48 H VBG pCO2 44.8 VBG HCO3 32.5 H VBG Base Excess 8.0 FiO2 Sodium 135.4 L Potassium 4.3 Chloride 96 L Carbon Dioxide 30 Anion Gap 9 BUN 16 Creatinine 0.69 Est GFR ( Amer) > 60 Est GFR (Non-Af Amer) > 60 Glucose 131 H Lactic Acid 1.5 Calcium 8.7 Total Bilirubin 0.5 AST 36 ALT 15 L Alkaline Phosphatase 110 Total Protein 6.1 L Albumin 3.2 L Urine Color Urine Appearance Urine pH Ur Specific [place] Urine Protein Urine Glucose (UA) Urine Ketones Urine Blood Urine Nitrite Ur Leukocyte Esterase Urine WBC (Auto) 08/12/18 08/12/18 08/12/18 14:18 16:07 19:00 WBC 13.3 H RBC 4.22 L Hgb 11.7 L Hct 35.7 L MCV 85 MCH 27.7 MCHC 32.7 RDW 21.4 H Plt Count 558 H Seg Neutrophils % Not Reportable Lymphocytes % Not Reportable Monocytes % Not Reportable Eosinophils % Not Reportable Basophils % Not Reportable Absolute Neutrophils Not Reportable Absolute Lymphocytes Not Reportable Absolute Monocytes Not Reportable Absolute Eosinophils Not Reportable Absolute Basophils Not Reportable Carbonic Acid 1.19 HCO3/H2CO3 Ratio 25:1 ABG pH 7.51 H ABG pCO2 39.6 ABG pO2 59.5 L ABG HCO3 30.9 H ABG O2 Saturation 93.0 L ABG Base Excess 7.3 VBG pH VBG pCO2 VBG HCO3 VBG Base Excess FiO2 5L Sodium Potassium Chloride Carbon Dioxide Anion Gap BUN Creatinine Est GFR ( Amer) Est GFR (Non-Af Amer) Glucose Lactic Acid Calcium Total Bilirubin AST ALT Alkaline Phosphatase Total Protein Albumin Urine Color YELLOW Urine Appearance CLEAR Urine pH 5.0 Ur Specific [place] 1.015 Urine Protein NEGATIVE Urine Glucose (UA) NEGATIVE Urine Ketones 20 H Urine Blood NEGATIVE Urine Nitrite NEGATIVE Ur Leukocyte Esterase NEGATIVE Urine WBC (Auto) 1 08/13/18 05:56 WBC RBC Hgb Hct MCV MCH MCHC RDW Plt Count Seg Neutrophils % Lymphocytes % Monocytes % Eosinophils % Basophils % Absolute Neutrophils Absolute Lymphocytes Absolute Monocytes Absolute Eosinophils Absolute Basophils Carbonic Acid 1.12 HCO3/H2CO3 Ratio 25:1 ABG pH 7.50 H ABG pCO2 37.3 ABG pO2 61.4 L ABG HCO3 28.6 H ABG O2 Saturation 93.5 L ABG Base Excess 5.3 VBG pH VBG pCO2 VBG HCO3 VBG Base Excess FiO2 6L Sodium Potassium Chloride Carbon Dioxide Anion Gap BUN Creatinine Est GFR ( Amer) Est GFR (Non-Af Amer) Glucose Lactic Acid Calcium Total Bilirubin AST ALT Alkaline Phosphatase Total Protein Albumin Urine Color Urine Appearance Urine pH Ur Specific [place] Urine Protein Urine Glucose (UA) Urine Ketones Urine Blood Urine Nitrite Ur Leukocyte Esterase Urine WBC (Auto) 08/12/18 08/12/18 08/12/18 13:15 13:15 19:36 Creatine Kinase 26 L < 20 L CK-MB (CK-2) 0.79 Troponin I 0.014 NT-Pro-B Natriuret Pep 996 H 08/12/18 08/13/18 08/13/18 19:36 01:12 01:12 Creatine Kinase < 20 L CK-MB (CK-2) 0.75 0.96 Troponin I 0.014 0.017 NT-Pro-B Natriuret Pep Impressions: Chest X-Ray 08/12/18 13:37 IMPRESSION: Marked loss of volume on the left. Lobectomy. Cannot exclude airspace disease in the left base. Cannot exclude small left pleural effusion. Cannot exclude minimal airspace disease in the medial right base. Chest/Abdomen CTA 08/12/18 17:28 IMPRESSION: 1. There is no evidence of pulmonary emboli. 2. There are marked changes in the left hemithorax that are likely chronic but we have no earlier studies. There is marked pneumothorax with very extensive atelectasis and only a small amount of aerated lung. Cannot entirely exclude a pneumonia in the left lower lobe. There is some pleural fluid. 3. Extensive pulmonary emphysema in the right lung. 4. Opacification the right lower lobe suggesting airspace disease, atelectasis versus consolidation. Assessment & Plan - Diagnosis (1) Lung cancer Qualifiers: Laterality: left Is this a current diagnosis for this admission?: Yes Plan: 08/12/2018 patient and family giving history of stage I lung cancer localized to the left lower lobe status post lobectomy was done around Yvonne time last year at [facility]. Patient did not have any radiation or chemotherapy he is able to see an oncologist after the surgery. Came in with severe shortness of breath. With hypoxia pulse ox in the 70s did ABG pulse pO2 is 59.5. 08/13/2018 patient has stage I lung cancer, status post left upper lobe lobectomy on June 19 at [facility]. He has postop complications and drainage from the chest tube as per the previous notices he was recently discharged from the hospital. Came to the emergency room last night yesterday evening rather with worsening shortness of breath. He was placed in the ICU here. Pulse ox is 94% on 6 L this morning. ABG was done this morning pH is 7.5/PCO2 61 PCO2 37.[address] Grier was at bedside, her input is appreciated. (2) Acute respiratory failure Qualifiers: Respiratory failure complication: hypoxia Qualified Code(s): J96.01 - Acute respiratory failure with hypoxia Is this a current diagnosis for this admission?: Yes Plan: 08/12/2018 patient came in with acute respiratory failure with hypoxia pulse ox on room air is 70%, and ABG PCO2 is 59.5. Acute respiratory failure may be secondary to recent left lower lobe lobectomy and a loss of lung volume. Plan is to put him in IMCU to start him on a BiPAP as needed if necessary patient and family agreed for the intubation. Consultation with Dr. Martinez was placed. We are going to do the daily ABGs. Started on IV steroids 40 mg daily 8 hours and Xopenex nebulizations every 8 hours. Started on levofloxacin 500 mg IV daily. Going to do the daily ABGs. 08/12/2018-patient came in with acute respiratory failure hypoxia. Pulse ox on 6 L this morning is 94%. ABG shows pH of 7.5 PCO2 37 PO2 61 bicarb was 28.6. Patient is on IV Solu-Medrol 40 mg every 8 hours, levofloxacin 500 mg IV daily and is getting Xopenex nebulizations. Chest physical therapy was requested. The CT of the chest showing consolidation of the right lower lobe going to add Zosyn to the present antibiotic therapy. Blood cultures sputum cultures are pending. She is a full code. Family wants intubation if necessary. (3) COPD (chronic obstructive pulmonary disease) Is this a current diagnosis for this admission?: Yes Plan: 08/12/2018 patient has history of COPD not on home oxygen COPD most likely secondary to chronic smoking he stopped smoking a few months ago but he has 50 years of smoking history. Patient does not want to be on nicotine patch. 08/13/2018 patient has history of COPD secondary to chronic smoking he is not on home oxygen. Patient is presently on Solu-Medrol IV every every 8 hours rather, Xopenex nebulizations CPT was requested. (4) Anxiety Is this a current diagnosis for this admission?: Yes Plan: 08/12/2018 family is complaining that patient has anxiety disorder he is on alprazolam at home I started him on alprazolam 0.5 mg 3 times a day as needed for anxiety episodes. 08/13/2017 patient has generalized anxiety disorder, is on alprazolam 0.5 mg 3 times a day plan is to resume the medication here in the hospital. (5) Sepsis Is this a current diagnosis for this admission?: Yes Plan: 08/12 2018 patient came in with hypoxia with pulse ox of 70%, tachycardia with heart rate more than 110 elevated WBC of 13,000+ but lactic acid is 1.5 patient was started on levofloxacin 500 mg IV daily blood cultures sputum cultures were requested to rule out sepsis. 08/13/2018-patient came in with hypoxia or tachycardia tachypnea but lactic acid level was normal chest x-ray shows consolidation probably he meets the criteria for sepsis. CTA shows opacification of the right lower lobe suggesting airspace disease, atelectasis versus consolidation. Patient was started on levofloxacin 400 mg IV daily yesterday and Zosyn was added to the medications today. - Time Time Spent with patient: 25-34 minutes Smoking Cessation Education: over 10 minutes Medications reviewed and adjusted accordingly: Yes Anticipated discharge: SNF
[2018-08-13 09:13] LABS: ABSOLUTE LYMPHOCYTES (AUTO) 0.6 10^3/uL (0.5-4.7); ABSOLUTE MONOCYTES (AUTO) 0.4 10^3/uL (0.1-1.4); ABSOLUTE NEUT (AUTO) 7.2 10^3/uL (1.7-8.2); BASOPHILS % (AUTO) 0.1 % (0-2); HEMATOCRIT 34.6 % (37.9-51.0); HEMOGLOBIN 11.2 g/dL (13.5-17.0); LYMPHOCYTES % (AUTO) 7.5 % (13-45); MEAN CORPUSCULAR HEMOGLOBIN 27.5 pg (27.0-33.4); MEAN CORPUSCULAR HGB CONC 32.5 g/dL (32.0-36.0); MEAN CORPUSCULAR VOLUME 85 fl (80-97); MONOCYTES % (AUTO) 5.3 % (3-13); PLATELET COUNT 557 10^3/uL (150-450); RED BLOOD COUNT 4.09 10^6/uL (4.35-5.55); RED CELL DISTRIBUTION WIDTH 21.4 % (11.5-14.0); SEGMENTED NEUTROPHILS % (AUTO) 87.1 % (42-78); TOTAL CELLS COUNTED % (AUTO) 100 %; WHITE BLOOD COUNT 8.2 10^3/uL (4.0-10.5)
[2018-08-13 09:22] LABS: INTERNATIONAL RATION (INR) 1.05; PROTHROMBIN TIME 14.3 SEC (11.4-15.4)
[2018-08-13 09:42] LABS: ALANINE AMINOTRANSFERASE 13 U/L (21-72); ALBUMIN 3.2 g/dL (3.5-5.0); ALKALINE PHOSPHATASE 101 U/L (38-126); ANION GAP 8 (5-19); ASPARTATE AMINO TRANSFERASE 17 U/L (17-59); BILIRUBIN,DIRECT 0.3 mg/dL (0.0-0.4); BILIRUBIN,TOTAL 0.3 mg/dL (0.2-1.3); BLOOD UREA NITROGEN 13 mg/dL (7-20); CARBON DIOXIDE 29 mmol/L (22-30); CHLORIDE 101 mmol/L (98-107); CHOLESTEROL 143.73 mg/dL (0-200); GLUCOSE 156 mg/dL (75-110); SODIUM 137.6 mmol/L (137-145); TOTAL PROTEIN 5.9 g/dL (6.3-8.2); TRIGLYCERIDES 120 mg/dL (<150)
[2018-08-13 09:46] LABS: CREATINE KINASE MB 1.01 ng/mL (<4.55)
[2018-08-13 09:50] LABS: TROPONIN I < 0.012 ng/mL
[2018-08-13 09:57] LABS: DIRECT LDL 92 mg/dL (<100)
[2018-08-13] MEDS: FAMOTIDINE INJ/PF 20 MG/2 ML SDV IV SCH ×2 (09:57→21:49)
[2018-08-13] MEDS: ENOXAPARIN SODIUM INJ 40 MG/0.4 ML DISP.SYRIN SUBCUT SCH (09:57)
[2018-08-13 10:01] LABS: CREATINE KINASE < 20 U/L (55-170)
[2018-08-13] MEDS: ASCORBIC ACID 500 MG TABLET PO SCH (10:38)
[2018-08-13] MEDS: DOCUSATE SODIUM 100 MG CAPSULE PO SCH ×2 (10:38→17:06)
[2018-08-13] MEDS ORDERED: VANCOMYCIN HCL 0 MG in DEXTROSE 5%-WATER 250 ML IV NR (11:00)
[2018-08-13] MEDS: TRAMADOL HCL 50 MG TABLET PO SCH ×2 (12:10→17:06)
[2018-08-13] MEDS: ASPIRIN 325 MG TABLET, ENT COATED PO SCH (12:10)
[2018-08-13] MEDS: FUROSEMIDE 20 MG TABLET PO SCH (12:10)
[2018-08-13] MEDS: LORATADINE 10 MG TABLET PO SCH (12:10)
--- NOTE | 2018-08-13 12:26 | RADIOLOGY REPORT (SQ) ---
EXAM DESCRIPTION: PICC INSERTION; FLUORO/CV PLACEMENT; U/S GUIDE FOR VASCULAR ACCESS COMPLETED DATE/TIME: 08/13/2018 11:59 am REASON FOR STUDY: picc IV ACCESS; IV ACCESS COMPARISON: CT chest 08/12/2018 Chest films 08/12/2018 FLUOROSCOPY TIME: 15 seconds 1 ultrasound and 1 fluoroscopic digital images saved to PACS. TECHNIQUE: Fluoroscopic and ultrasound guided PICC placement. LIMITATIONS: None. PROCEDURE: After written consent and assessment were obtained, the patient was brought into the fluo roscopy room and placed supine on the table. Ultrasound evaluation of potential access sites were per formed. After successfully identifying a patent left basilic vein, the left arm was prepped and drape d in a sterile fashion along with the ultrasound probe. The entry site was anesthetized with 1% lidoc merlyn. A 21 gauge 7 cm needle was advanced through the skin and into the basilic vein under live ultra sound guidance. An ultrasound image was saved to PACS confirming access site. A .018 guide wire was then inserted through the needle and into the venous system. The needle was then removed and an 11 b lade scalpel was used to make a 1cm skin incision. A 5 fr peel-away sheath was advanced over the wir e and into the venous system. A measurement was then made using the existing wire and live fluoroscop ic guidance. The wire was then removed and trimmed. The PICC was advanced through the peel-away sheat h and into the venous system. The peel-away sheath was removed and the catheter was adhered to the pa tients arm with a stat lock. The catheter was then aspirated and flushed and a sterile bandage was pl aced over the access site. A fluoroscopic spot image was saved to PACS confirming the catheter tip w ithin the superior vena cava. IMPRESSION: SUCCESSFUL PLACEMENT OF A 5 FR DUAL LUMEN 40 CM PICC IN THE LEFT BASILIC VEIN. COMMENT: Patient medication list reviewed: Yes- Quality ID# 130:Eligible professional attests to doc umenting in the medical record they obtained, updated, or reviewed the patient's current medications. . Quality ID 145: Final reports for procedures using fluoroscopy that document radiation exposure desean can, or exposure time and number of fluorographic images (if radiation exposure indices are not avail able) Quality ID #76: The patient was prepped and draped using maximum sterile barrier technique including cap, mask, sterile gown, sterile gloves, a large sterile sheet, hand hygiene, and 2% Chlorhexidine fo r cutaneous antisepsis. When ultrasound is used, sterile ultrasound techniques are followed requiring sterile gel and sterile probes. TECHNICAL DOCUMENTATION: JOB ID: [id number] [employer]- All Rights Reserved rev-12/04 Reading location - IP/workstation name: [facility]
--- NOTE | 2018-08-13 12:31 | RADIOLOGY REPORT (SQ) ---
EXAM DESCRIPTION: CHEST 2 VIEWS COMPLETED DATE/TIME: 08/13/2018 12:00 pm REASON FOR STUDY: resp failure COMPARISON: AP chest 08/12/[address] angio chest 08/12/[address] angio chest 08/01/2018 [facility] Two-view chest 08/04/2018 [facility] EXAM PARAMETERS: NUMBER OF VIEWS: two views TECHNIQUE: Digital Frontal and Lateral radiographic views of the chest acquired. RADIATION DOSE: NA LIMITATIONS: none FINDINGS: LUNGS AND PLEURA: Right lung is hyperinflated and hyperlucent from obstructive lung diseas e. Persistent consolidation in the right posterior costophrenic sulcus, atelectasis versus pneumonia versus mass is unchanged from prior outside studies. There is volume loss in the left hemithorax post left upper lobectomy for lung cancer. Elevation of the left hemidiaphragm is present with persistent pleural thickening and consolidation in the left lo wer lobe. Persistent airspace in the anterior left upper hemithorax is unchanged. MEDIASTINUM AND HILAR STRUCTURES: Surgical clips left hilum HEART AND VASCULAR STRUCTURES: Shift of mediastinal structures into the left chest from left lung vol ume loss. No gross cardiomegaly. BONES: No acute findings. HARDWARE: Left PICC line tip superior vena cava OTHER: No other significant finding. IMPRESSION: Left PICC line tip superior vena cava Post left lower lobectomy with surgical clips in the left hilum, volume loss left hemithorax, and rin d of pleural thickening with basilar consolidation left lungs. Persistent consolidation in the medial right lung base. TECHNICAL DOCUMENTATION: JOB ID: [id number] [employer]- All Rights Reserved Reading location - IP/workstation name: [email or web address]
[2018-08-13] MEDS: VANCOMYCIN HCL 750 MG in DEXTROSE 5%-WATER 250 ML IV SCH ×2 (13:38→21:49)
[2018-08-13] MEDS: POTASSIUM CHLORIDE 10 MEQ CAPSULE.ER PO SCH (13:38)
[2018-08-13] MEDS ORDERED: NORMAL SALINE 10 ML SDV (AFTER EACH USE) IV PRN (14:00)
[2018-08-13] MEDS: LEVOFLOXACIN 750 MG/D5W RTU 750 MG/150 ML RTUPB IV SCH (17:06)
[2018-08-13] MEDS: ALPRAZOLAM 0.5 MG TABLET PO PRN (21:49)
[2018-08-13] MEDS: NORMAL SALINE 10 ML SDV (SCHEDULED) IV SCH (21:51)
[2018-08-14] MEDS: TRAMADOL HCL 50 MG TABLET PO SCH ×4 (00:07→20:43)
[2018-08-14] MEDS: LEVALBUTEROL HCL NEB 1.25 MG/3 ML AMPUL NEB SCH ×4 (00:31→23:28)
[2018-08-14] MEDS: METHYLPREDNISOLONE INJ 40 MG/1 ML SDV IV SCH ×3 (05:39→22:45)
--- NOTE | 2018-08-14 07:39 | RADIOLOGY REPORT (SQ) ---
EXAM DESCRIPTION: X-ray single view chest. CLINICAL HISTORY: 72 years Male, resp failure COMPARISON: 08/13/2018 and 08/12/2018 TECHNIQUE: Single portable view of the chest performed on 08/14/2018 at 6:19 AM FINDINGS: There is chronic volume loss in the left hemithorax without significant interval change. There has been a prior left lower lobe lobectomy. The right lung is well-expanded and clear. There is mild residual right infrahilar opacification. There is no evidence of a pneumothorax. The cardiac silhouette is normal in size and configuration. There is mild stable leftward mediastinal shift. No acute osseous abnormality is identified. No focal soft tissue abnormalities are seen. Lines and tubes: The left upper extremity PICC line catheter is stable in position. IMPRESSION: 1. No significant change when compared to the prior study. Status post left lower lobe lobectomy with chronic volume loss in the left hemithorax and leftward mediastinal shift. 2. Mild residual right infrahilar opacification. 3. Stable left upper extremity PICC line catheter.
[2018-08-14 08:34] LABS: ARTERIAL BLOOD BASE EXCESS 6.7 mmol/L; ARTERIAL BLOOD H2CO3 1.34 mmol/L (1.05-1.35); ARTERIAL BLOOD HCO3 31.2 mmol/L (20-24); ARTERIAL BLOOD O2 SATURATION 92.9 % (94-98); ARTERIAL BLOOD PCO2 44.6 mmHg (35-45); ARTERIAL BLOOD PH 7.46 (7.35-7.45); ARTERIAL BLOOD PO2 62.3 mmHg (80-100); ARTERIAL BLOOD TOTAL CO2 32.6 mmol/L (23-27)
[2018-08-14 08:35] LABS: ARTERIAL BLOOD FIO2 3L
--- NOTE | 2018-08-14 08:44 | PDOC PROGRESS REPORT ---
Subjective Progress Note for:: 08/14/18 Subjective:: 72-year-old male with stage I lung cancer diagnosed 4 months ago and he underwent left upper lobectomy in the [facility] on June 19. His surgery was complicated by infection and chronic drainage from the chest tubes. He was recently discharged from the hospital 1 week ago, came to the emergency room last night with complaining of chest pain worsening shortness of breath. In the emergency room pulse oxes are found to be in the 70s and the ABG PCO2 is 59. Medical consult was called for further management. The surgical team was contacted after [facility] on they do not have any beds available in the ICU in the meantime we will put the patient here in the intensive care unit. No acute events in the last 24 hours. Patient is afebrile. CT of the chest was done yesterday report indicates marked pneumothorax but I spoke to Dr. Herman she compared the CTA done yesterday to the previous films and thinks it is postsurgical nothing new, she is going to add an addendum to the last night report. Are also suggestive of consolidation. Patient was started on levofloxacin 500 mg IV daily blood cultures ,sputum culture were requested yesterday. 08/14/2018- [id number] male history of stage I lung cancer diagnosed a few months ago status post left upper lobe lobectomy on June 19 in [facility], with postop complications of infections on chronic drainage from the chest tube and he was recently discharged from [facility] came to the emergency room with complaints of increasing shortness of breath 2 days ago. Family wants him to be a full code. No complications in the last 24 hours. Patient is afebrile. No complaints from the patient's of the family members. Pulse ox on 3 L is 99% this morning. his Is not on BiPAP. Patient is downgraded to IMCU. is at bedside no concerns from her. Reason For Visit: ACUTE RESPIRATORY FAILURE Physical Exam Vital Signs: Temp Pulse Resp BP Pulse Ox 97.5 F 93 13 132/62 H 94 08/14/18 08:00 08/14/18 08:00 08/14/18 08:00 08/14/18 08:00 08/14/18 08:00 Intake & Output 08/13/18 08/14/18 08/15/18 06:59 06:59 06:59 Intake Total 1100 518 250 Output Total 150 2175 100 Balance 950 -1657 150 Weight 54.2 kg 53.1 kg General appearance: PRESENT: mild distress Head exam: PRESENT: atraumatic Eye exam: PRESENT: PERRLA Mouth exam: PRESENT: moist Neck exam: ABSENT: carotid bruit, JVD, lymphadenopathy, thyromegaly Respiratory exam: PRESENT: decreased breath sounds Cardiovascular exam: PRESENT: tachycardia GI/Abdominal exam: PRESENT: normal bowel sounds, soft. ABSENT: distended, guarding, mass, organolmegaly, rebound, tenderness Extremities exam: PRESENT: full ROM. ABSENT: calf tenderness, clubbing, pedal edema Neurological exam: PRESENT: alert, awake, oriented to person, oriented to place, oriented to time, oriented to situation, CN II-XII grossly intact. ABSENT: motor sensory deficit Psychiatric exam: PRESENT: appropriate affect, normal mood. ABSENT: homicidal ideation, suicidal ideation Results Laboratory Results: 08/13/18 09:02 08/13/18 09:02 08/13/18 08/13/18 08/13/18 09:02 09:02 09:02 WBC 8.2 RBC 4.09 L Hgb 11.2 L Hct 34.6 L MCV 85 MCH 27.5 MCHC 32.5 RDW 21.4 H Plt Count 557 H Seg Neutrophils % 87.1 H Lymphocytes % 7.5 L Monocytes % 5.3 Eosinophils % 0.0 Basophils % 0.1 Absolute Neutrophils 7.2 Absolute Lymphocytes 0.6 Absolute Monocytes 0.4 Absolute Eosinophils 0.0 Absolute Basophils 0.0 Sodium 137.6 Potassium 4.0 Chloride 101 Carbon Dioxide 29 Anion Gap 8 BUN 13 Creatinine 0.56 Est GFR ( Amer) > 60 Est GFR (Non-Af Amer) > 60 Glucose 156 H Calcium 9.0 Magnesium 2.0 Total Bilirubin 0.3 AST 17 ALT 13 L Alkaline Phosphatase 101 Total Protein 5.9 L Albumin 3.2 L Triglycerides 120 Cholesterol 143.73 LDL Cholesterol Direct 92 VLDL Cholesterol 24.0 HDL Cholesterol 42 TSH 0.22 L 08/12/18 08/12/18 08/12/18 13:15 13:15 19:36 Creatine Kinase 26 L < 20 L CK-MB (CK-2) 0.79 Troponin I 0.014 NT-Pro-B Natriuret Pep 996 H 08/12/18 08/13/18 08/13/18 19:36 01:12 01:12 Creatine Kinase < 20 L CK-MB (CK-2) 0.75 0.96 Troponin I 0.014 0.017 NT-Pro-B Natriuret Pep 08/13/18 08/13/18 09:02 09:02 Creatine Kinase < 20 L CK-MB (CK-2) 1.01 Troponin I < 0.012 NT-Pro-B Natriuret Pep Impressions: Chest/Abdomen CTA 08/12/18 17:28 IMPRESSION: 1. There is no evidence of pulmonary emboli. 2. There are marked changes in the left hemithorax that are likely chronic but we have no earlier studies. There is marked pneumothorax with very extensive atelectasis and only a small amount of aerated lung. Cannot entirely exclude a pneumonia in the left lower lobe. There is some pleural fluid. 3. Extensive pulmonary emphysema in the right lung. 4. Opacification the right lower lobe suggesting airspace disease, atelectasis versus consolidation. Guidance Fluoroscopy 08/13/18 00:00 IMPRESSION: SUCCESSFUL PLACEMENT OF A 5 FR DUAL LUMEN 40 CM PICC IN THE LEFT BASILIC VEIN. Interventional Vascular Procedure 08/13/18 00:00 IMPRESSION: SUCCESSFUL PLACEMENT OF A 5 FR DUAL LUMEN 40 CM PICC IN THE LEFT BASILIC VEIN. PICC Line Insertion 08/13/18 00:00 IMPRESSION: SUCCESSFUL PLACEMENT OF A 5 FR DUAL LUMEN 40 CM PICC IN THE LEFT BASILIC VEIN. Chest X-Ray 08/14/18 06:00 IMPRESSION: 1. No significant change when compared to the prior study. Status post left lower lobe lobectomy with chronic volume loss in the left hemithorax and leftward mediastinal shift. 2. Mild residual right infrahilar opacification. 3. Stable left upper extremity PICC line catheter. Assessment & Plan - Diagnosis (1) Lung cancer Qualifiers: Laterality: left Is this a current diagnosis for this admission?: Yes Plan: 08/12/2018 patient and family giving history of stage I lung cancer localized to the left lower lobe status post lobectomy was done around [place] time last year at [facility]. Patient did not have any radiation or chemotherapy he is able to see an oncologist after the surgery. Came in with severe shortness of breath. With hypoxia pulse ox in the 70s did ABG pulse pO2 is 59.5. 08/13/2018 patient has stage I lung cancer, status post left upper lobe lobectomy on June 19 at [facility]. He has postop complications and drainage from the chest tube as per the previous notices he was recently discharged from the hospital. Came to the emergency room last night yesterday evening rather with worsening shortness of breath. He was placed in the ICU here. Pulse ox is 94% on 6 L this morning. ABG was done this morning pH is 7.5/PCO2 61 PCO2 37.[address] Grier was at bedside, her input is appreciated. 08/14/2018 patient has a stage I lung cancer with known metastasis he has left upper lobe lobectomy was done. Patient was hypoxic when he came to the emergency room. Yesterday pulse ox requirements are 6 L. Today pulse ox is a 99% on 3 L. Improved oxygenation. ABG done today is pending. Chest x-ray shows no significant changes from yesterday. And is on vancomycin and levofloxacin. Sputum cultures blood cultures are pending. (2) Acute respiratory failure Qualifiers: Respiratory failure complication: hypoxia Qualified Code(s): J96.01 - Acute respiratory failure with hypoxia Is this a current diagnosis for this admission?: Yes Plan: 08/12/2018 patient came in with acute respiratory failure with hypoxia pulse ox on room air is 70%, and ABG PCO2 is 59.5. Acute respiratory failure may be secondary to recent left lower lobe lobectomy and a loss of lung volume. Plan is to put him in IMCU to start him on a BiPAP as needed if necessary patient and family agreed for the intubation. Consultation with Dr. Martinez was placed. We are going to do the daily ABGs. Started on IV steroids 40 mg daily 8 hours and Xopenex nebulizations every 8 hours. Started on levofloxacin 500 mg IV daily. Going to do the daily ABGs. 08/13/2018-patient came in with acute respiratory failure hypoxia. Pulse ox on 6 L this morning is 94%. ABG shows pH of 7.5 PCO2 37 PO2 61 bicarb was 28.6. Patient is on IV Solu-Medrol 40 mg every 8 hours, levofloxacin 500 mg IV daily and is getting Xopenex nebulizations. Chest physical therapy was requested. The CT of the chest showing consolidation of the right lower lobe going to add Zosyn to the present antibiotic therapy. Blood cultures sputum cultures are pending. he is a full code. Family wants intubation if necessary. 08/14/2018-patient came in with acute respiratory failure with hypoxia. Today pulse ox on 3 L is 99%. ABG this morning is pending. Patient is currently on IV Solu-Medrol 40 mg every 8 hours, levofloxacin 500 mg IV daily, vancomycin IV in association with Xopenex nebulizations. He is also receiving chest physical therapy. Patient is full code. Follow-up chest x-ray done today shows no significant changes. Patient has a PICC line was placed yesterday. (3) COPD (chronic obstructive pulmonary disease) Is this a current diagnosis for this admission?: Yes Plan: 08/12/2018 patient has history of COPD not on home oxygen COPD most likely secondary to chronic smoking he stopped smoking a few months ago but he has 50 years of smoking history. Patient does not want to be on nicotine patch. 08/13/2018 patient has history of COPD secondary to chronic smoking he is not on home oxygen. Patient is presently on Solu-Medrol IV every every 8 hours rather, Xopenex nebulizations CPT was requested. 08/14/2018-patient has history of chronic COPD secondary to smoking. He is a not on home oxygen. Because of the problem with the concentration at home . Patient is presently on IV Solu-Medrol every 8 hours on receiving nebulizations along with chest physical therapy. Examination chest bilateral entry was severely decreased both sides and especially on the left upper chest because of the left upper lobectomy. (4) Anxiety Is this a current diagnosis for this admission?: Yes Plan: 08/12/2018 family is complaining that patient has anxiety disorder he is on alprazolam at home I started him on alprazolam 0.5 mg 3 times a day as needed for anxiety episodes. 08/13/2018 patient has generalized anxiety disorder, is on alprazolam 0.5 mg 3 times a day plan is to resume the medication here in the hospital. 08/14/2018-patient has history of generalized anxiety disorder he is taking alprazolam 0.5 mg 3 times daily at home those medications are resumed during the hospital stay. (5) Sepsis Is this a current diagnosis for this admission?: Yes Plan: 08/12 2018 patient came in with hypoxia with pulse ox of 70%, tachycardia with heart rate more than 110 elevated WBC of 13,000+ but lactic acid is 1.5 patient was started on levofloxacin 500 mg IV daily blood cultures sputum cultures were requested to rule out sepsis. 08/13/2018-patient came in with hypoxia or tachycardia tachypnea but lactic acid level was normal chest x-ray shows consolidation probably he meets the criteria for sepsis. CTA shows opacification of the right lower lobe suggesting airspace disease, atelectasis versus consolidation. Patient was started on levofloxacin 400 mg IV daily yesterday and Zosyn was added to the medications today. 08/14/2018 patient came in with hypoxia tachypnea tachycardia hypotension and elevated lactic acid at the time of admission and chest x-ray shows possible consolidation at the bibasilar region. Think he meets the criteria for SIRS. Cultures and sputum cultures are pending. Patient is on levofloxacin 500 mg daily and IV vancomycin, vancomycin DOSE WILL be adjusted based on the pharmacY Recommendations. - Time Time Spent with patient: 15-24 minutes Smoking Cessation Education: over 10 minutes Medications reviewed and adjusted accordingly: Yes Anticipated discharge: Home
[2018-08-14] MEDS: VANCOMYCIN HCL 750 MG in DEXTROSE 5%-WATER 250 ML IV SCH (09:42)
[2018-08-14] MEDS: POTASSIUM CHLORIDE 10 MEQ CAPSULE.ER PO SCH (09:43)
[2018-08-14] MEDS: ASCORBIC ACID 500 MG TABLET PO SCH (09:43)
[2018-08-14] MEDS: FAMOTIDINE INJ/PF 20 MG/2 ML SDV IV SCH ×2 (09:43→22:45)
[2018-08-14] MEDS: DOCUSATE SODIUM 100 MG CAPSULE PO SCH ×2 (09:44→16:59)
[2018-08-14] MEDS: ASPIRIN 325 MG TABLET, ENT COATED PO SCH (09:44)
[2018-08-14] MEDS: NORMAL SALINE 10 ML SDV (SCHEDULED) IV SCH ×2 (09:44→22:46)
[2018-08-14] MEDS: FUROSEMIDE 20 MG TABLET PO SCH (09:44)
[2018-08-14] MEDS: LORATADINE 10 MG TABLET PO SCH (09:44)
[2018-08-14] MEDS: ENOXAPARIN SODIUM INJ 40 MG/0.4 ML DISP.SYRIN SUBCUT SCH (09:45)
--- NOTE | 2018-08-14 10:44 | PDOC PROGRESS REPORT ---
Subjective Progress Note for:: 08/14/18 Subjective:: Patient states that he was able to sleep last night. Breathing has improved today. is concerned that he has lost so much weight. He is complaining of difficulty swallowing with return of the thrush, as he has had previously. ROS: decreased appetite, no nausea, constipation. No pain. Reason For Visit: ACUTE RESPIRATORY FAILURE Physical Exam Vital Signs: Temp Pulse Resp BP Pulse Ox 97.5 F 98 11 L 134/67 H 96 08/14/18 08:00 08/14/18 08:42 08/14/18 10:00 08/14/18 09:54 08/14/18 10:00 Intake & Output 08/13/18 08/14/18 08/15/18 06:59 06:59 06:59 Intake Total 1100 518 250 Output Total 150 2175 100 Balance 950 -1657 150 Weight 54.2 kg 53.1 kg General appearance: PRESENT: no acute distress, thin Exam: Appears much more comfortable today. Head exam: PRESENT: normocephalic Respiratory exam: PRESENT: decreased breath sounds, unlabored Cardiovascular exam: PRESENT: RRR GI/Abdominal exam: PRESENT: soft. ABSENT: tenderness Extremities exam: ABSENT: pedal edema Neurological exam: PRESENT: alert, awake Psychiatric exam: PRESENT: appropriate affect Skin exam: PRESENT: normal color Results Laboratory Results: 08/13/18 09:02 08/13/18 09:02 08/14/18 08:16 Carbonic Acid 1.34 HCO3/H2CO3 Ratio 23:1 ABG pH 7.46 H ABG pCO2 44.6 ABG pO2 62.3 L ABG HCO3 31.2 H ABG O2 Saturation 92.9 L ABG Base Excess 6.7 FiO2 3L 08/12/18 19:56 Sputum Gram Stain - Final 08/12/18 19:56 Sputum Sputum Culture - Final NORMAL DILCIA 08/12/18 08/12/18 08/12/18 13:15 13:15 19:36 Creatine Kinase 26 L < 20 L CK-MB (CK-2) 0.79 Troponin I 0.014 NT-Pro-B Natriuret Pep 996 H 08/12/18 08/13/18 08/13/18 19:36 01:12 01:12 Creatine Kinase < 20 L CK-MB (CK-2) 0.75 0.96 Troponin I 0.014 0.017 NT-Pro-B Natriuret Pep 08/13/18 08/13/18 09:02 09:02 Creatine Kinase < 20 L CK-MB (CK-2) 1.01 Troponin I < 0.012 NT-Pro-B Natriuret Pep Impressions: Chest/Abdomen CTA 08/12/18 17:28 IMPRESSION: 1. There is no evidence of pulmonary emboli. 2. There are marked changes in the left hemithorax that are likely chronic but we have no earlier studies. There is marked pneumothorax with very extensive atelectasis and only a small amount of aerated lung. Cannot entirely exclude a pneumonia in the left lower lobe. There is some pleural fluid. 3. Extensive pulmonary emphysema in the right lung. 4. Opacification the right lower lobe suggesting airspace disease, atelectasis versus consolidation. Guidance Fluoroscopy 08/13/18 00:00 IMPRESSION: SUCCESSFUL PLACEMENT OF A 5 FR DUAL LUMEN 40 CM PICC IN THE LEFT BASILIC VEIN. Interventional Vascular Procedure 08/13/18 00:00 IMPRESSION: SUCCESSFUL PLACEMENT OF A 5 FR DUAL LUMEN 40 CM PICC IN THE LEFT BASILIC VEIN. PICC Line Insertion 08/13/18 00:00 IMPRESSION: SUCCESSFUL PLACEMENT OF A 5 FR DUAL LUMEN 40 CM PICC IN THE LEFT BASILIC VEIN. Chest X-Ray 08/14/18 06:00 IMPRESSION: 1. No significant change when compared to the prior study. Status post left lower lobe lobectomy with chronic volume loss in the left hemithorax and leftward mediastinal shift. 2. Mild residual right infrahilar opacification. 3. Stable left upper extremity PICC line catheter. Assessment & Plan - Diagnosis (1) Lung cancer Qualifiers: Laterality: left Is this a current diagnosis for this admission?: Yes (2) Hypoxia Is this a current diagnosis for this admission?: Yes - Plan Summary Plan Summary: Patient looking much better today. Will sign off, but please call if needed.
[2018-08-14] MEDS ORDERED: CALCIUM CARBONATE 500 MG TAB.CHEW PO PRN (12:37)
[2018-08-14] MEDS: NYSTATIN 500000 UNIT/5 ML UDCUP PO SCH ×3 (14:17→22:45)
[2018-08-14] MEDS: ACETAMINOPHEN 325 MG TABLET PO PRN (16:12)
[2018-08-14] MEDS: LEVOFLOXACIN 750 MG/D5W RTU 750 MG/150 ML RTUPB IV SCH (16:59)
[2018-08-14] MEDS: ALPRAZOLAM 0.5 MG TABLET PO PRN (17:50)
[2018-08-14] MEDS ORDERED: TRAMADOL HCL 50 MG TABLET PO SCH (18:00)
[2018-08-14 23:42] LABS: VANCOMYCIN,TROUGH 6.5 ug/mL (5.0-20.0)
[2018-08-15] MEDS: VANCOMYCIN HCL 750 MG in DEXTROSE 5%-WATER 250 ML IV SCH ×2 (01:02→09:40)
[2018-08-15] MEDS: TRAMADOL HCL 50 MG TABLET PO SCH ×4 (02:50→20:02)
[2018-08-15] MEDS: METHYLPREDNISOLONE INJ 40 MG/1 ML SDV IV SCH ×3 (06:09→22:34)
[2018-08-15 06:41] LABS: ABSOLUTE LYMPHOCYTES (AUTO) 0.8 10^3/uL (0.5-4.7); ABSOLUTE MONOCYTES (AUTO) 0.6 10^3/uL (0.1-1.4); ABSOLUTE NEUT (AUTO) 8.3 10^3/uL (1.7-8.2); HEMATOCRIT 32.4 % (37.9-51.0); HEMOGLOBIN 10.6 g/dL (13.5-17.0); LYMPHOCYTES % (AUTO) 8.7 % (13-45); MEAN CORPUSCULAR HEMOGLOBIN 27.9 pg (27.0-33.4); MEAN CORPUSCULAR HGB CONC 32.6 g/dL (32.0-36.0); MEAN CORPUSCULAR VOLUME 86 fl (80-97); MONOCYTES % (AUTO) 6.4 % (3-13); PLATELET COUNT 556 10^3/uL (150-450); RED BLOOD COUNT 3.79 10^6/uL (4.35-5.55); RED CELL DISTRIBUTION WIDTH 21.2 % (11.5-14.0); SEGMENTED NEUTROPHILS % (AUTO) 84.9 % (42-78); TOTAL CELLS COUNTED % (AUTO) 100 %; WHITE BLOOD COUNT 9.7 10^3/uL (4.0-10.5)
[2018-08-15 07:10] LABS: ARTERIAL BLOOD BASE EXCESS 3.2 mmol/L; ARTERIAL BLOOD O2 SATURATION 88.2 % (94-98); ARTERIAL BLOOD PCO2 43.2 mmHg (35-45); ARTERIAL BLOOD PH 7.43 (7.35-7.45); ARTERIAL BLOOD PO2 52.9 mmHg (80-100); ARTERIAL BLOOD TOTAL CO2 29.3 mmol/L (23-27)
[2018-08-15 07:11] LABS: ARTERIAL BLOOD FIO2 2LNC
[2018-08-15 07:24] LABS: ALANINE AMINOTRANSFERASE 19 U/L (21-72); ALBUMIN 3.2 g/dL (3.5-5.0); ALKALINE PHOSPHATASE 86 U/L (38-126); ANION GAP 7 (5-19); ASPARTATE AMINO TRANSFERASE 12 U/L (17-59); BILIRUBIN,DIRECT 0.2 mg/dL (0.0-0.4); BILIRUBIN,TOTAL 0.2 mg/dL (0.2-1.3); BLOOD UREA NITROGEN 18 mg/dL (7-20); CARBON DIOXIDE 34 mmol/L (22-30); CHLORIDE 96 mmol/L (98-107); GLUCOSE 92 mg/dL (75-110); POTASSIUM 4.4 mmol/L (3.6-5.0); SODIUM 137.2 mmol/L (137-145); TOTAL PROTEIN 5.6 g/dL (6.3-8.2)
[2018-08-15] MEDS: LEVALBUTEROL HCL NEB 1.25 MG/3 ML AMPUL NEB SCH ×3 (08:03→23:50)
--- NOTE | 2018-08-15 08:49 | RADIOLOGY REPORT (SQ) ---
EXAM DESCRIPTION: CHEST SINGLE VIEW COMPLETED DATE/TIME: 08/15/2018 8:27 am REASON FOR STUDY: resp failure COMPARISON: CT chest 08/12/2018 Chest films 08/13/2018, 08/14/2018 EXAM PARAMETERS: NUMBER OF VIEWS: One view. TECHNIQUE: Single frontal radiographic view of the chest acquired. RADIATION DOSE: NA LIMITATIONS: None. FINDINGS: LUNGS AND PLEURA: Right lung hyperinflated and hyperlucent. Persisting consolidation in t he posterior right lung base unchanged. Persistent volume loss in the left chest post upper lobectomy and lower lobe collapse with consolidat ion. There is a persistent enlarged airspaces in the anterior superior left chest, similar compared to prior studies. Trace fluid blunting the lateral costophrenic sulcus. Dense consolidation and col lapse left lower lobe. MEDIASTINUM AND HILAR STRUCTURES: Surgical clips left hilum post upper lobectomy HEART AND VASCULAR STRUCTURES: Heart normal in size. Normal vasculature. BONES: No acute findings. HARDWARE: Left PICC line tip superior vena cava OTHER: No other significant finding. IMPRESSION: No change from 08/14/2018, 08/13/2018 TECHNICAL DOCUMENTATION: JOB ID: [id number] [employer]- All Rights Reserved Reading location - IP[facility]workstation name: [email or web address]
[2018-08-15] MEDS: POTASSIUM CHLORIDE 10 MEQ CAPSULE.ER PO SCH (09:27)
[2018-08-15] MEDS: DOCUSATE SODIUM 100 MG CAPSULE PO SCH ×2 (09:28→18:19)
[2018-08-15] MEDS: LORATADINE 10 MG TABLET PO SCH (09:28)
[2018-08-15] MEDS: ENOXAPARIN SODIUM INJ 40 MG/0.4 ML DISP.SYRIN SUBCUT SCH (09:28)
[2018-08-15] MEDS: FUROSEMIDE 20 MG TABLET PO SCH (09:28)
[2018-08-15] MEDS: NYSTATIN 500000 UNIT/5 ML UDCUP PO SCH ×4 (09:28→22:33)
[2018-08-15] MEDS: ASPIRIN 325 MG TABLET, ENT COATED PO SCH (09:28)
[2018-08-15] MEDS: ASCORBIC ACID 500 MG TABLET PO SCH (09:28)
[2018-08-15] MEDS: FAMOTIDINE INJ/PF 20 MG/2 ML SDV IV SCH ×2 (09:29→22:34)
[2018-08-15] MEDS: NORMAL SALINE 10 ML SDV (SCHEDULED) IV SCH ×2 (09:29→22:34)
--- NOTE | 2018-08-15 09:56 | PDOC PROGRESS REPORT ---
Subjective Progress Note for:: 08/15/18 Subjective:: 72-year-old male with stage I lung cancer diagnosed 4 months ago and he underwent left upper lobectomy in the [facility] on June 19. His surgery was complicated by infection and chronic drainage from the chest tubes. He was recently discharged from the hospital 1 week ago, came to the emergency room last night with complaining of chest pain worsening shortness of breath. In the emergency room pulse oxes are found to be in the 70s and the ABG PCO2 is 59. Medical consult was called for further management. The surgical team was contacted after [facility] on they do not have any beds available in the ICU in the meantime we will put the patient here in the intensive care unit. No acute events in the last 24 hours. Patient is afebrile. CT of the chest was done yesterday report indicates marked pneumothorax but I spoke to Dr. Herman she compared the CTA done yesterday to the previous films and thinks it is postsurgical nothing new, she is going to add an addendum to the last night report. Are also suggestive of consolidation. Patient was started on levofloxacin 500 mg IV daily blood cultures ,sputum culture were requested yesterday. [id number] male history of stage I lung cancer diagnosed a few months ago status post left upper lobe lobectomy on June 19 in [facility], with postop complications of infections on chronic drainage from the chest tube and he was recently discharged from [facility] came to the emergency room with complaints of increasing shortness of breath 2 days ago. Family wants him to be a full code. No complications in the last 24 hours. Patient is afebrile. No complaints from the patient's of the family members. Pulse ox on 3 L is 99% this morning. his Is not on BiPAP. Patient is downgraded to IMCU. is at bedside no concerns from her. 08/15/2018 72-year-old male history of stage I lung cancer status post left upper lobe lobectomy in [facility] on June 19 followed by postop complications of infections and chronic drainage from the chest tube came to the hospital 1 week after discharge from the [facility] with complaint seeing of chest pains and increasing shortness of breath. In the emergency room he was found to be hypoxic. Requiring BiPAP. He was started on IV antibiotic therapy. CT scan shows right sided consolidation. No acute events in the last 24 hours. Patient is afebrile. Pulse ox is 94% on 3 L. Reason For Visit: ACUTE RESPIRATORY FAILURE Physical Exam Vital Signs: Temp Pulse Resp BP Pulse Ox 97.5 F 106 H 16 150/63 H 94 08/15/18 08:42 08/15/18 08:42 08/15/18 08:42 08/15/18 08:42 08/15/18 08:42 Intake & Output 08/14/18 08/15/18 08/16/18 06:59 06:59 06:59 Intake Total 518 1300 Output Total 2175 2445 Balance -1657 -1145 Weight 53.1 kg 55.1 kg General appearance: PRESENT: no acute distress Head exam: PRESENT: atraumatic Eye exam: PRESENT: PERRLA Neck exam: ABSENT: carotid bruit, JVD, lymphadenopathy, thyromegaly Respiratory exam: PRESENT: decreased breath sounds, other - Decreased air entry in the left upper lobe probably secondary to lobectomy. Cardiovascular exam: PRESENT: RRR. ABSENT: diastolic murmur, rubs, systolic murmur GI/Abdominal exam: PRESENT: normal bowel sounds, soft. ABSENT: distended, gua rding, mass, organolmegaly, rebound, tenderness Neurological exam: PRESENT: alert, awake, oriented to person, oriented to place, oriented to time, oriented to situation, CN II-XII grossly intact. ABSENT: motor sensory deficit Psychiatric exam: PRESENT: appropriate affect, normal mood. ABSENT: homicidal ideation, suicidal ideation Results Laboratory Results: 08/15/18 06:18 08/15/18 06:18 08/15/18 08/15/18 08/15/18 06:18 06:18 06:55 WBC 9.7 RBC 3.79 L Hgb 10.6 L Hct 32.4 L MCV 86 MCH 27.9 MCHC 32.6 RDW 21.2 H Plt Count 556 H Seg Neutrophils % 84.9 H Lymphocytes % 8.7 L Monocytes % 6.4 Eosinophils % 0.0 Basophils % 0.0 Absolute Neutrophils 8.3 H Absolute Lymphocytes 0.8 Absolute Monocytes 0.6 Absolute Eosinophils 0.0 Absolute Basophils 0.0 Carbonic Acid 1.30 HCO3/H2CO3 Ratio 21:1 ABG pH 7.43 ABG pCO2 43.2 ABG pO2 52.9 L ABG HCO3 28.0 H ABG O2 Saturation 88.2 L ABG Base Excess 3.2 FiO2 2LNC Sodium 137.2 Potassium 4.4 Chloride 96 L Carbon Dioxide 34 H Anion Gap 7 BUN 18 Creatinine 0.65 Est GFR ( Amer) > 60 Est GFR (Non-Af Amer) > 60 Glucose 92 Calcium 9.0 Magnesium 2.2 Total Bilirubin 0.2 AST 12 L ALT 19 L Alkaline Phosphatase 86 Total Protein 5.6 L Albumin 3.2 L 08/12/18 19:56 Sputum Gram Stain - Final 08/12/18 19:56 Sputum Sputum Culture - Final NORMAL DILCIA 08/12/18 08/12/18 08/12/18 13:15 13:15 19:36 Creatine Kinase 26 L < 20 L CK-MB (CK-2) 0.79 Troponin I 0.014 NT-Pro-B Natriuret Pep 996 H 08/12/18 08/13/18 08/13/18 19:36 01:12 01:12 Creatine Kinase < 20 L CK-MB (CK-2) 0.75 0.96 Troponin I 0.014 0.017 NT-Pro-B Natriuret Pep 08/13/18 08/13/18 08/15/18 09:02 09:02 06:18 Creatine Kinase < 20 L CK-MB (CK-2) 1.01 Troponin I < 0.012 NT-Pro-B Natriuret Pep 471 Impressions: Chest/Abdomen CTA 08/12/18 17:28 IMPRESSION: 1. There is no evidence of pulmonary emboli. 2. There are marked changes in the left hemithorax that are likely chronic but we have no earlier studies. There is marked pneumothorax with very extensive atelectasis and only a small amount of aerated lung. Cannot entirely exclude a pneumonia in the left lower lobe. There is some pleural fluid. 3. Extensive pulmonary emphysema in the right lung. 4. Opacification the right lower lobe suggesting airspace disease, atelectasis versus consolidation. Guidance Fluoroscopy 08/13/18 00:00 IMPRESSION: SUCCESSFUL PLACEMENT OF A 5 FR DUAL LUMEN 40 CM PICC IN THE LEFT BASILIC VEIN. Interventional Vascular Procedure 08/13/18 00:00 IMPRESSION: SUCCESSFUL PLACEMENT OF A 5 FR DUAL LUMEN 40 CM PICC IN THE LEFT BASILIC VEIN. PICC Line Insertion 08/13/18 00:00 IMPRESSION: SUCCESSFUL PLACEMENT OF A 5 FR DUAL LUMEN 40 CM PICC IN THE LEFT BASILIC VEIN. Chest X-Ray 08/15/18 06:00 IMPRESSION: No change from 08/14/2018, 08/13/2018 Assessment & Plan - Diagnosis (1) Lung cancer Qualifiers: Laterality: left Is this a current diagnosis for this admission?: Yes Plan: 08/12/2018 patient and family giving history of stage I lung cancer localized to the left lower lobe status post lobectomy was done around Yvonne time last year at [facility]. Patient did not have any radiation or chemotherapy he is able to see an oncologist after the surgery. Came in with severe shortness of breath. With hypoxia pulse ox in the 70s did ABG pulse pO2 is 59.5. 08/13/2018 patient has stage I lung cancer, status post left upper lobe lobectomy on June 19 at [facility]. He has postop complications and drainage from the chest tube as per the previous notices he was recently discharged from the hospital. Came to the emergency room last night yesterday evening rather with worsening shortness of breath. He was placed in the ICU here. Pulse ox is 94% on 6 L this morning. ABG was done this morning pH is 7.5/PCO2 61 PCO2 37.[address] Grier was at bedside, her input is appreciated. 08/14/2018 patient has a stage I lung cancer , post left upper lobe lobectomy in [facility] in June. Patient was hypoxic when he came to the emergency room. Yesterday pulse ox requirements are 6 L. Today pulse ox is a 99% on 3 L. Improved oxygenation. ABG done today is pending. Chest x-ray shows no significant changes from yesterday. And is on vancomycin and levofloxacin. Sputum cultures blood cultures are pending. 08/15/2018-patient has stage IV lung cancer with no metastasis, status post left upper lobe lobectomy in the [facility] in June. Admitted for severe shortness of breath acute on chronic respiratory failure probably secondary to underlying pneumonia/left upper lobe lobectomy. Alessia is following the patient. She is presently on 3 L oxygen. Pulse ox is 94%. ABG done on 2 L this morning pH is 7.43/PCO2 43 PO2 53 bicarb is 28%. Patient is asymptomatic. (2) Acute respiratory failure Qualifiers: Respiratory failure complication: hypoxia Qualified Code(s): J96.01 - Acute respiratory failure with hypoxia Is this a current diagnosis for this admission?: Yes Plan: 08/12/2018 patient came in with acute respiratory failure with hypoxia pulse ox on room air is 70%, and ABG PCO2 is 59.5. Acute respiratory failure may be secondary to recent left lower lobe lobectomy and a loss of lung volume. Plan is to put him in IMCU to start him on a BiPAP as needed if necessary patient and family agreed for the intubation. Consultation with Dr. Martinez was placed. We are going to do the daily ABGs. Started on IV steroids 40 mg daily 8 hours and Xopenex nebulizations every 8 hours. Started on levofloxacin 500 mg IV daily. Going to do the daily ABGs. 08/13/2018-patient came in with acute respiratory failure hypoxia. Pulse ox on 6 L this morning is 94%. ABG shows pH of 7.5 PCO2 37 PO2 61 bicarb was 28.6. Patient is on IV Solu-Medrol 40 mg every 8 hours, levofloxacin 500 mg IV daily and is getting Xopenex nebulizations. Chest physical therapy was requested. The CT of the chest showing consolidation of the right lower lobe going to add Zosyn to the present antibiotic therapy. Blood cultures sputum cultures are pending. he is a full code. Family wants intubation if necessary. 08/14/2018-patient came in with acute respiratory failure with hypoxia. Today pulse ox on 3 L is 99%. ABG this morning is pending. Patient is currently on IV Solu-Medrol 40 mg every 8 hours, levofloxacin 500 mg IV daily, vancomycin IV in association with Xopenex nebulizations. He is also receiving chest physical therapy. Patient is full code. Follow-up chest x-ray done today shows no significant changes. Patient has a PICC line was placed yesterday. 08/15/2018 patient was admitted acute on chronic respiratory failure with hypoxia probably secondary to left upper lobe lobectomy and right lung consolidation. Pulse oxes are improving. Pulse ox on 3 L is 94%. And is on IV antibiotic therapy levofloxacin 500 mg IV daily, vancomycin IV daily, IV Solu-Medrol, Xopenex nebulizations. Plan is to continue the present management. (3) COPD (chronic obstructive pulmonary disease) Is this a current diagnosis for this admission?: Yes Plan: 08/12/2018 patient has history of COPD not on home oxygen COPD most likely secondary to chronic smoking he stopped smoking a few months ago but he has 50 years of smoking history. Patient does not want to be on nicotine patch. 08/13/2018 patient has history of COPD secondary to chronic smoking he is not on home oxygen. Patient is presently on Solu-Medrol IV every every 8 hours rather, Xopenex nebulizations CPT was requested. 08/14/2018-patient has history of chronic COPD secondary to smoking. He is a not on home oxygen. Because of the problem with the concentration at home . Patient is presently on IV Solu-Medrol every 8 hours on receiving nebulizations along with chest physical therapy. Examination chest bilateral entry was severely decreased both sides and especially on the left upper chest because of the left upper lobectomy. 08/15/2018-patient has history of COPD secondary to chronic smoking. Patient is not on home oxygen because of the problem with a concentrator at home as per the . Pulse ox on 3 L today is 94%. Is getting a Xopenex nebulizations antibiotic therapy, chest physical therapy. Follow-up chest x-ray this morning indicates right-sided consolidation. cultures are pending. (4) Anxiety Is this a current diagnosis for this admission?: Yes Plan: 08/12/2018 family is complaining that patient has anxiety disorder he is on alprazolam at home I started him on alprazolam 0.5 mg 3 times a day as needed for anxiety episodes. 08/13/2018 patient has generalized anxiety disorder, is on alprazolam 0.5 mg 3 times a day plan is to resume the medication here in the hospital. 08/14/2018-patient has history of generalized anxiety disorder he is taking alprazolam 0.5 mg 3 times daily at home those medications are resumed during the hospital stay. 08/15/2018 patient has history of anxiety disorder he is on alprazolam 1.5 mg p.o. 3 times a day at home which was continued during the hospital stay. (5) Sepsis Is this a current diagnosis for this admission?: Yes Plan: 08/12 2018 patient came in with hypoxia with pulse ox of 70%, tachycardia with heart rate more than 110 elevated WBC of 13,000+ but lactic acid is 1.5 patient was started on levofloxacin 500 mg IV daily blood cultures sputum cultures were requested to rule out sepsis. 08/13/2018-patient came in with hypoxia or tachycardia tachypnea but lactic acid level was normal chest x-ray shows consolidation probably he meets the criteria for sepsis. CTA shows opacification of the right lower lobe suggesting airspace disease, atelectasis versus consolidation. Patient was started on levofloxacin 400 mg IV daily yesterday and Zosyn was added to the medications today. 08/14/2018 patient came in with hypoxia tachypnea tachycardia hypotension and elevated lactic acid at the time of admission and chest x-ray shows possible consolidation at the bibasilar region. Think he meets the criteria for SIRS. Cultures and sputum cultures are pending. Patient is on levofloxacin 500 mg daily and IV vancomycin, vancomycin DOSE WILL be adjusted based on the pharmacY Recommendations. 08/15/2018 patient is on levofloxacin 500 mg IV daily also on IV vancomycin. Blood cultures and sputum cultures are negative so far. Plan is to continue the present management. His hypoxia and hypotension resolving. - Time Time Spent with patient: 15-24 minutes Smoking Cessation Education: over 10 minutes Anticipated discharge: Home
[2018-08-15] MEDS: POLYETHYLENE GLYCOL 3350 POWDER 17 GM/1 PACKET PO SCH (10:52)
[2018-08-15] MEDS: ACETAMINOPHEN 325 MG TABLET PO PRN (13:17)
[2018-08-15] MEDS: ALPRAZOLAM 0.5 MG TABLET PO PRN ×2 (14:09→19:37)
[2018-08-15] MEDS: LEVOFLOXACIN 750 MG/D5W RTU 750 MG/150 ML RTUPB IV SCH (18:16)
[2018-08-16] MEDS: TRAMADOL HCL 50 MG TABLET PO SCH ×4 (03:08→21:06)
[2018-08-16] MEDS: ACETAMINOPHEN 325 MG TABLET PO PRN ×2 (05:58→23:29)
[2018-08-16] MEDS: ALPRAZOLAM 0.5 MG TABLET PO PRN ×4 (05:59→23:13)
[2018-08-16] MEDS: METHYLPREDNISOLONE INJ 40 MG/1 ML SDV IV SCH ×2 (05:59→19:00)
[2018-08-16 06:39] LABS: ABSOLUTE LYMPHOCYTES (AUTO) 1.2 10^3/uL (0.5-4.7); ABSOLUTE NEUT (AUTO) 8.4 10^3/uL (1.7-8.2); BASOPHILS % (AUTO) 0.1 % (0-2); HEMATOCRIT 34.2 % (37.9-51.0); HEMOGLOBIN 11.1 g/dL (13.5-17.0); LYMPHOCYTES % (AUTO) 10.9 % (13-45); MEAN CORPUSCULAR HEMOGLOBIN 27.7 pg (27.0-33.4); MEAN CORPUSCULAR HGB CONC 32.4 g/dL (32.0-36.0); MEAN CORPUSCULAR VOLUME 86 fl (80-97); MONOCYTES % (AUTO) 9.2 % (3-13); PLATELET COUNT 594 10^3/uL (150-450); RED CELL DISTRIBUTION WIDTH 20.7 % (11.5-14.0); SEGMENTED NEUTROPHILS % (AUTO) 79.8 % (42-78); TOTAL CELLS COUNTED % (AUTO) 100 %; WHITE BLOOD COUNT 10.6 10^3/uL (4.0-10.5)
[2018-08-16 06:52] LABS: ALANINE AMINOTRANSFERASE 19 U/L (21-72); ALBUMIN 3.4 g/dL (3.5-5.0); ALKALINE PHOSPHATASE 85 U/L (38-126); ANION GAP 6 (5-19); ASPARTATE AMINO TRANSFERASE 11 U/L (17-59); BILIRUBIN,DIRECT 0.2 mg/dL (0.0-0.4); BILIRUBIN,TOTAL 0.2 mg/dL (0.2-1.3); BLOOD UREA NITROGEN 17 mg/dL (7-20); CALCIUM 9.1 mg/dL (8.4-10.2); CARBON DIOXIDE 34 mmol/L (22-30); CHLORIDE 97 mmol/L (98-107); GLUCOSE 89 mg/dL (75-110); POTASSIUM 4.7 mmol/L (3.6-5.0); TOTAL PROTEIN 5.8 g/dL (6.3-8.2)
[2018-08-16] MEDS: LEVALBUTEROL HCL NEB 1.25 MG/3 ML AMPUL NEB SCH ×2 (08:07→20:37)
--- NOTE | 2018-08-16 09:26 | PDOC PROGRESS REPORT ---
Subjective Progress Note for:: 08/16/18 Subjective:: 72-year-old male with stage I lung cancer diagnosed 4 months ago and he underwent left upper lobectomy in the [facility] on June 19. His surgery was complicated by infection and chronic drainage from the chest tubes. He was recently discharged from the hospital 1 week ago, came to the emergency room last night with complaining of chest pain worsening shortness of breath. In the emergency room pulse oxes are found to be in the 70s and the ABG PCO2 is 59. Medical consult was called for further management. The surgical team was contacted after [facility] on they do not have any beds available in the ICU in the meantime we will put the patient here in the intensive care unit. No acute events in the last 24 hours. Patient is afebrile. CT of the chest was done yesterday report indicates marked pneumothorax but I spoke to Dr. Herman she compared the CTA done yesterday to the previous films and thinks it is postsurgical nothing new, she is going to add an addendum to the last night report. Are also suggestive of consolidation. Patient was started on levofloxacin 500 mg IV daily blood cultures ,sputum culture were requested yesterday. [id number]-old male history of stage I lung cancer diagnosed a few months ago status post left upper lobe lobectomy on June 19 in [facility], with postop complications of infections on chronic drainage from the chest tube and he was recently discharged from [facility] came to the emergency room with complaints of increasing shortness of breath 2 days ago. Family wants him to be a full code. No complications in the last 24 hours. Patient is afebrile. No complaints from the patient's of the family members. Pulse ox on 3 L is 99% this morning. his Is not on BiPAP. Patient is downgraded to IMCU. is at bedside no concerns from her. 08/15/2018 72-year-old male history of stage I lung cancer status post left upper lobe lobectomy in [facility] on June 19 followed by postop complications of infections and chronic drainage from the chest tube came to the hospital 1 week after discharge from the [facility] with complaint seeing of chest pains and increasing shortness of breath. In the emergency room he was found to be hypoxic. Requiring BiPAP. He was started on IV antibiotic therapy. CT scan shows right sided consolidation. No acute events in the last 24 hours. Patient is afebrile. Pulse ox is 94% on 3 L. 08/16/2018 72-year-old male with stage I lung cancer status post left upper lobe lobectomy in June last year admitted with severe shortness of breath and hypoxia initially requiring BiPAP. CT scan of the chest shows right-sided co nsolidation. Is on IV antibiotic therapy. Presently he is on oxygen 3 L with pulse ox of 93%. He uses oxygen 3 L at home also. No acute events in the last 48 hours. Patient is afebrile. Patient was anxious to hospital because he was admitted within few days after discharge during the prior hospitalizations. He prefers to stay until tomorrow. Reason For Visit: ACUTE RESPIRATORY FAILURE Physical Exam Vital Signs: Temp Pulse Resp BP Pulse Ox 97.7 F 105 H 18 138/70 H 93 08/16/18 06:21 08/16/18 08:07 08/16/18 08:07 08/16/18 06:21 08/16/18 08:07 Intake & Output 08/15/18 08/16/18 08/17/18 06:59 06:59 06:59 Intake Total 1300 1608 Output Total 2445 2025 Balance -1145 -417 Weight 55.1 kg 54.9 kg General appearance: PRESENT: no acute distress Head exam: PRESENT: atraumatic Eye exam: PRESENT: PERRLA Mouth exam: PRESENT: dry mucosa Neck exam: ABSENT: carotid bruit, JVD, lymphadenopathy, thyromegaly Respiratory exam: PRESENT: decreased breath sounds, other - Decreased air entry in the left upper chest secondary to lt upper lobe lobectomy. Cardiovascular exam: PRESENT: systolic murmur, tachycardia GI/Abdominal exam: PRESENT: normal bowel sounds, soft. ABSENT: distended, guarding, mass, organolmegaly, rebound, tenderness Extremities exam: PRESENT: full ROM. ABSENT: calf tenderness, clubbing, pedal edema Neurological exam: PRESENT: alert, awake, oriented to person, oriented to place, oriented to time, oriented to situation, CN II-XII grossly intact. ABSENT: motor sensory deficit Psychiatric exam: PRESENT: appropriate affect, normal mood. ABSENT: homicidal ideation, suicidal ideation Results Laboratory Results: 08/16/18 06:00 08/16/18 06:00 08/16/18 08/16/18 06:00 06:00 WBC 10.6 H RBC 4.00 L Hgb 11.1 L Hct 34.2 L MCV 86 MCH 27.7 MCHC 32.4 RDW 20.7 H Plt Count 594 H Seg Neutrophils % 79.8 H Lymphocytes % 10.9 L Monocytes % 9.2 Eosinophils % 0.0 Basophils % 0.1 Absolute Neutrophils 8.4 H Absolute Lymphocytes 1.2 Absolute Monocytes 1.0 Absolute Eosinophils 0.0 Absolute Basophils 0.0 Sodium 137.0 Potassium 4.7 Chloride 97 L Carbon Dioxide 34 H Anion Gap 6 BUN 17 Creatinine 0.62 Est GFR ( Amer) > 60 Est GFR (Non-Af Amer) > 60 Glucose 89 Calcium 9.1 Magnesium 2.3 Total Bilirubin 0.2 AST 11 L ALT 19 L Alkaline Phosphatase 85 Total Protein 5.8 L Albumin 3.4 L 08/13/18 09:20 Sputum Gram Stain - Final 08/13/18 09:20 Sputum Sputum Culture - Final NORMAL DILCIA 08/12/18 08/12/18 08/12/18 13:15 13:15 19:36 Creatine Kinase 26 L < 20 L CK-MB (CK-2) 0.79 Troponin I 0.014 NT-Pro-B Natriuret Pep 996 H 08/12/18 08/13/18 08/13/18 19:36 01:12 01:12 Creatine Kinase < 20 L CK-MB (CK-2) 0.75 0.96 Troponin I 0.014 0.017 NT-Pro-B Natriuret Pep 08/13/18 08/13/18 08/15/18 09:02 09:02 06:18 Creatine Kinase < 20 L CK-MB (CK-2) 1.01 Troponin I < 0.012 NT-Pro-B Natriuret Pep 471 Impressions: Chest/Abdomen CTA 08/12/18 17:28 IMPRESSION: 1. There is no evidence of pulmonary emboli. 2. There are marked changes in the left hemithorax that are likely chronic but we have no earlier studies. There is marked pneumothorax with very extensive atelectasis and only a small amount of aerated lung. Cannot entirely exclude a pneumonia in the left lower lobe. There is some pleural fluid. 3. Extensive pulmonary emphysema in the right lung. 4. Opacification the right lower lobe suggesting airspace disease, atelectasis versus consolidation. Guidance Fluoroscopy 08/13/18 00:00 IMPRESSION: SUCCESSFUL PLACEMENT OF A 5 FR DUAL LUMEN 40 CM PICC IN THE LEFT BASILIC VEIN. Interventional Vascular Procedure 08/13/18 00:00 IMPRESSION: SUCCESSFUL PLACEMENT OF A 5 FR DUAL LUMEN 40 CM PICC IN THE LEFT BASILIC VEIN. PICC Line Insertion 08/13/18 00:00 IMPRESSION: SUCCESSFUL PLACEMENT OF A 5 FR DUAL LUMEN 40 CM PICC IN THE LEFT BASILIC VEIN. Chest X-Ray 08/15/18 06:00 IMPRESSION: No change from 08/14/2018, 08/13/2018 Assessment & Plan - Diagnosis (1) Lung cancer Qualifiers: Laterality: left Is this a current diagnosis for this admission?: Yes Plan: 08/12/2018 patient and family giving history of stage I lung cancer localized to the left lower lobe status post lobectomy was done around Yvonne time last year at [facility]. Patient did not have any radiation or chemotherapy he is able to see an oncologist after the surgery. Came in with severe shortness of breath. With hypoxia pulse ox in the 70s did ABG pulse pO2 is 59.5. 08/13/2018 patient has stage I lung cancer, status post left upper lobe lobectomy on June 19 at [facility]. He has postop complications and drainage from the chest tube as per the previous notices he was recently discharged from the hospital. Came to the emergency room last night yesterday evening rather with worsening shortness of breath. He was placed in the ICU here. Pulse ox is 94% on 6 L this morning. ABG was done this morning pH is 7.5/PCO2 61 PCO2 37.[address] Grier was at bedside, her input is appreciated. 08/14/2018 patient has a stage I lung cancer , post left upper lobe lobectomy in [facility] in June. Patient was hypoxic when he came to the emergency room. Yesterday pulse ox requirements are 6 L. Today pulse ox is a 99% on 3 L. Improved oxygenation. ABG done today is pending. Chest x-ray shows no significant changes from yesterday. And is on vancomycin and levofloxacin. Sputum cultures blood cultures are pending. 08/15/2018-patient has stage 1 lung cancer with no metastasis, status post left upper lobe lobectomy in the [facility] in June. Admitted for severe shortness of breath acute on chronic respiratory failure probably secondary to underlying pneumonia/left upper lobe lobectomy. Alessia is following the patient. She is presently on 3 L oxygen. Pulse ox is 94%. ABG done on 2 L this morning pH is 7.43/PCO2 43 PO2 53 bicarb is 28%. Patient is asymptomatic. 08/16/2018-patient was diagnosed with stage I lung cancer last year status post left upper lobe lobectomy in the [facility] on June 20. The procedure was comp complicated by recurrent infections and chronic chest tube drainage. He came to this hospital within 1 week of discharge from [facility]. As per the family he has appointments with [employer] and drink [employer] workers, oncologist in the coming week or 2. Patient is presently on 3 L oxygen pulse ox is 94%. Oncology consult was done during this hospitalization. (2) Acute respiratory failure Qualifiers: Respiratory failure complication: hypoxia Qualified Code(s): J96.01 - Acute respiratory failure with hypoxia Is this a current diagnosis for this admission?: Yes Plan: 08/12/2018 patient came in with acute respiratory failure with hypoxia pulse ox on room air is 70%, and ABG PCO2 is 59.5. Acute respiratory failure may be secondary to recent left lower lobe lobectomy and a loss of lung volume. Plan is to put him in IMCU to start him on a BiPAP as needed if necessary patient and family agreed for the intubation. Consultation with Dr. Martinez was placed. We are going to do the daily ABGs. Started on IV steroids 40 mg daily 8 hours and Xopenex nebulizations every 8 hours. Started on levofloxacin 500 mg IV daily. Going to do the daily ABGs. 08/13/2018-patient came in with acute respiratory failure hypoxia. Pulse ox on 6 L this morning is 94%. ABG shows pH of 7.5 PCO2 37 PO2 61 bicarb was 28.6. Patient is on IV Solu-Medrol 40 mg every 8 hours, levofloxacin 500 mg IV daily and is getting Xopenex nebulizations. Chest physical therapy was requested. The CT of the chest showing consolidation of the right lower lobe going to add Zosyn to the present antibiotic therapy. Blood cultures sputum cultures are pending. he is a full code. Family wants intubation if necessary. 08/14/2018-patient came in with acute respiratory failure with hypoxia. Today pulse ox on 3 L is 99%. ABG this morning is pending. Patient is currently on IV Solu-Medrol 40 mg every 8 hours, levofloxacin 500 mg IV daily, vancomycin IV in association with Xopenex nebulizations. He is also receiving chest physical therapy. Patient is full code. Follow-up chest x-ray done today shows no significant changes. Patient has a PICC line was placed yesterday. 08/15/2018 patient was admitted acute on chronic respiratory failure with hypoxia probably secondary to left upper lobe lobectomy and right lung consolidation. Pulse oxes are improving. Pulse ox on 3 L is 94%. And is on IV antibiotic therapy levofloxacin 500 mg IV daily, vancomycin IV daily, IV Solu-Medrol, Xopenex nebulizations. Plan is to continue the present management. 08/16/2018-patient is admitted with acute respiratory failure with hypoxia probably secondary to left upper lobe lobectomy and right-sided consolidation. Presently he is on now IV levofloxacin 500 mg daily IV vancomycin. He is also receiving Xopenex nebulizations. Sputum cultures blood cultures are negative. Pulse ox is 94% on 3 L. (3) COPD (chronic obstructive pulmonary disease) Is this a current diagnosis for this admission?: Yes Plan: 08/12/2018 patient has history of COPD not on home oxygen COPD most likely secondary to chronic smoking he stopped smoking a few months ago but he has 50 years of smoking history. Patient does not want to be on nicotine patch. 08/13/2018 patient has history of COPD secondary to chronic smoking he is not on home oxygen. Patient is presently on Solu-Medrol IV every every 8 hours rather, Xopenex nebulizations CPT was requested. 08/14/2018-patient has history of chronic COPD secondary to smoking. He is a not on home oxygen. Because of the problem with the concentration at home . Patient is presently on IV Solu-Medrol every 8 hours on receiving nebulizations along with chest physical therapy. Examination chest bilateral entry was severely decreased both sides and especially on the left upper chest because of the left upper lobectomy. 08/15/2018-patient has history of COPD secondary to chronic smoking. Patient is not on home oxygen because of the problem with a concentrator at home as per the . Pulse ox on 3 L today is 94%. Is getting a Xopenex nebulizations antibiotic therapy, chest physical therapy. Follow-up chest x-ray this morning indicates right-sided consolidation. cultures are pending. 08/16/2018-patient has history of COPD secondary to chronic smoking. He is on 3 L of oxygen at home. Pulse ox today is 94% on 3 L. He is receiving Xopenex nebulizations IV Solu-Medrol 40 mg every 8 hours chest physical therapy and antibiotic therapy. Chest physical therapy was discontinued yesterday. Solu- Medrol is decreased to 40 mg every 12 hours today. I am going to arrange for a follow-up chest x-ray tomorrow. Sputum cultures blood cultures are negative. (4) Anxiety Is this a current diagnosis for this admission?: Yes Plan: 08/12/2018 family is complaining that patient has anxiety disorder he is on alpr azolam at home I started him on alprazolam 0.5 mg 3 times a day as needed for anxiety episodes. 08/13/2018 patient has generalized anxiety disorder, is on alprazolam 0.5 mg 3 times a day plan is to resume the medication here in the hospital. 08/14/2018-patient has history of generalized anxiety disorder he is taking alprazolam 0.5 mg 3 times daily at home those medications are resumed during the hospital stay. 08/15/2018 patient has history of anxiety disorder he is on alprazolam 1.5 mg p.o. 3 times a day at home which was continued during the hospital stay. 08/16/2018-patient has history of anxiety disorder on alprazolam. Plan is to continue the present management. (5) Sepsis Is this a current diagnosis for this admission?: Yes Plan: 08/12 2018 patient came in with hypoxia with pulse ox of 70%, tachycardia with heart rate more than 110 elevated WBC of 13,000+ but lactic acid is 1.5 patient was started on levofloxacin 500 mg IV daily blood cultures sputum cultures were requested to rule out sepsis. 08/13/2018-patient came in with hypoxia or tachycardia tachypnea but lactic acid level was normal chest x-ray shows consolidation probably he meets the criteria for sepsis. CTA shows opacification of the right lower lobe suggesting airspace disease, atelectasis versus consolidation. Patient was started on levofloxacin 400 mg IV daily yesterday and Zosyn was added to the medications today. 08/14/2018 patient came in with hypoxia tachypnea tachycardia hypotension and elevated lactic acid at the time of admission and chest x-ray shows possible consolidation at the bibasilar region. Think he meets the criteria for SIRS. Cultures and sputum cultures are pending. Patient is on levofloxacin 500 mg daily and IV vancomycin, vancomycin DOSE WILL be adjusted based on the pharmacY Recommendations. 08/15/2018 patient is on levofloxacin 500 mg IV daily also on IV vancomycin. Blood cultures and sputum cultures are negative so far. Plan is to continue the present management. His hypoxia and hypotension resolving. 08/16/2018 patient was admitted with sepsis. He is on IV levofloxacin and IV vancomycin so far cultures are negative. Hypotension is resolved hypoxia is resolving oxygen requirements are at baseline. X-ray shows stable right-sided consolidation. - Time Time Spent with patient: 15-24 minutes Smoking Cessation Education: over 10 minutes Medications reviewed and adjusted accordingly: Yes Anticipated discharge: Home
[2018-08-16] MEDS: POTASSIUM CHLORIDE 10 MEQ CAPSULE.ER PO SCH (09:58)
[2018-08-16] MEDS: FUROSEMIDE 20 MG TABLET PO SCH (09:59)
[2018-08-16] MEDS: ASPIRIN 325 MG TABLET, ENT COATED PO SCH (10:00)
[2018-08-16] MEDS: DOCUSATE SODIUM 100 MG CAPSULE PO SCH ×2 (10:00→19:00)
[2018-08-16] MEDS: FAMOTIDINE 20 MG TABLET PO SCH ×2 (10:00→21:06)
[2018-08-16] MEDS: POLYETHYLENE GLYCOL 3350 POWDER 17 GM/1 PACKET PO SCH (10:00)
[2018-08-16] MEDS: LORATADINE 10 MG TABLET PO SCH (10:00)
[2018-08-16] MEDS: ASCORBIC ACID 500 MG TABLET PO SCH (10:01)
[2018-08-16] MEDS: NORMAL SALINE 10 ML SDV (SCHEDULED) IV SCH ×2 (10:01→21:06)
[2018-08-16] MEDS: NYSTATIN 500000 UNIT/5 ML UDCUP PO SCH ×4 (10:02→21:06)
[2018-08-16] MEDS: ENOXAPARIN SODIUM INJ 40 MG/0.4 ML DISP.SYRIN SUBCUT SCH (12:42)
[2018-08-16] MEDS ORDERED: LEVALBUTEROL HCL NEB 1.25 MG/3 ML AMPUL NEB ONE (18:33)
[2018-08-16] MEDS: LEVOFLOXACIN 750 MG/D5W RTU 750 MG/150 ML RTUPB IV SCH (19:00)
[2018-08-17] MEDS: LEVALBUTEROL HCL NEB 1.25 MG/3 ML AMPUL NEB SCH ×3 (01:50→14:06)
[2018-08-17] MEDS: TRAMADOL HCL 50 MG TABLET PO SCH ×2 (02:02→09:05)
[2018-08-17 04:22] LABS: ABSOLUTE LYMPHOCYTES (AUTO) 1.2 10^3/uL (0.5-4.7); ABSOLUTE NEUT (AUTO) 8.7 10^3/uL (1.7-8.2); HEMATOCRIT 34.2 % (37.9-51.0); HEMOGLOBIN 11.1 g/dL (13.5-17.0); LYMPHOCYTES % (AUTO) 10.9 % (13-45); MEAN CORPUSCULAR HEMOGLOBIN 27.8 pg (27.0-33.4); MEAN CORPUSCULAR HGB CONC 32.6 g/dL (32.0-36.0); MEAN CORPUSCULAR VOLUME 85 fl (80-97); MONOCYTES % (AUTO) 9.2 % (3-13); PLATELET COUNT 614 10^3/uL (150-450); RED BLOOD COUNT 4.01 10^6/uL (4.35-5.55); RED CELL DISTRIBUTION WIDTH 20.7 % (11.5-14.0); SEGMENTED NEUTROPHILS % (AUTO) 79.9 % (42-78); TOTAL CELLS COUNTED % (AUTO) 100 %; WHITE BLOOD COUNT 10.9 10^3/uL (4.0-10.5)
[2018-08-17 04:43] LABS: ALANINE AMINOTRANSFERASE 19 U/L (21-72); ALBUMIN 3.2 g/dL (3.5-5.0); ALKALINE PHOSPHATASE 85 U/L (38-126); ANION GAP 9 (5-19); ASPARTATE AMINO TRANSFERASE 11 U/L (17-59); BILIRUBIN,DIRECT 0.2 mg/dL (0.0-0.4); BILIRUBIN,TOTAL 0.2 mg/dL (0.2-1.3); BLOOD UREA NITROGEN 18 mg/dL (7-20); CARBON DIOXIDE 33 mmol/L (22-30); CHLORIDE 95 mmol/L (98-107); GLUCOSE 97 mg/dL (75-110); POTASSIUM 4.4 mmol/L (3.6-5.0); TOTAL PROTEIN 5.5 g/dL (6.3-8.2)
[2018-08-17] MEDS: METHYLPREDNISOLONE INJ 40 MG/1 ML SDV IV SCH (05:17)
[2018-08-17] MEDS: ASCORBIC ACID 500 MG TABLET PO SCH (09:05)
[2018-08-17] MEDS: FUROSEMIDE 20 MG TABLET PO SCH (09:05)
[2018-08-17] MEDS: POLYETHYLENE GLYCOL 3350 POWDER 17 GM/1 PACKET PO SCH (09:05)
[2018-08-17] MEDS: NYSTATIN 500000 UNIT/5 ML UDCUP PO SCH (09:05)
[2018-08-17] MEDS: DOCUSATE SODIUM 100 MG CAPSULE PO SCH (09:05)
[2018-08-17] MEDS: ASPIRIN 325 MG TABLET, ENT COATED PO SCH (09:05)
[2018-08-17] MEDS: LORATADINE 10 MG TABLET PO SCH (09:05)
[2018-08-17] MEDS: ALPRAZOLAM 0.5 MG TABLET PO PRN (09:05)
[2018-08-17] MEDS: POTASSIUM CHLORIDE 10 MEQ CAPSULE.ER PO SCH (09:05)
[2018-08-17] MEDS: NORMAL SALINE 10 ML SDV (SCHEDULED) IV SCH (09:06)
[2018-08-17] MEDS: ENOXAPARIN SODIUM INJ 40 MG/0.4 ML DISP.SYRIN SUBCUT SCH (09:06)
[2018-08-17] MEDS: FAMOTIDINE 20 MG TABLET PO SCH (09:12)
[2018-08-17] MEDS ORDERED: BUDESONIDE/FORMOTEROL 160-4.5 MCG 60 PUFF/6 GM MDI IH SCH (10:00)
[2018-08-17] MEDS ORDERED: TIOTROPIUM BROMIDE DPI 5 CAP/KIT (18 MCG/CAP) IH SCH (10:00)
--- NOTE | 2018-08-17 11:16 | RADIOLOGY REPORT (SQ) ---
EXAM DESCRIPTION: CHEST SINGLE VIEW COMPLETED DATE/TIME: 08/17/2018 10:45 am REASON FOR STUDY: pnumonia COMPARISON: 08/15/2018 EXAM PARAMETERS: NUMBER OF VIEWS: One view. TECHNIQUE: Single frontal radiographic view of the chest acquired. RADIATION DOSE: NA LIMITATIONS: Leftward patient rotation. FINDINGS: LUNGS AND PLEURA: Persistent dense left basilar opacification with elevation of the left h emidiaphragm and likely mild to moderate effusion. Unremarkable right hemithorax. MEDIASTINUM AND HILAR STRUCTURES: Obscured left hilum. Unremarkable right hilum without discrete mas s. HEART AND VASCULAR STRUCTURES: Largely obscured. BONES: No acute findings. HARDWARE: Left approach PICC tip terminates in superior vena cava. OTHER: No other significant finding. IMPRESSION: No significant change with persistent left basilar consolidation with lower lobe volume loss and likely mild effusion. TECHNICAL DOCUMENTATION: JOB ID: [id number] [employer]- All Rights Reserved Reading location - IP/workstation name: [email or web address]
--- NOTE | 2018-08-17 11:50 | PDOC DISCHARGE SUMMARY ---
General - Admit/Disc Date/PCP Admission Date/Primary Care Provider: 08/12/18 18:20 OLIVERIO TORRES MD Discharge Date: 08/17/18 - Discharge Diagnosis (1) Lung cancer Is this a current diagnosis for this admission?: Yes Summary: 08/12/2018 patient and family giving history of stage I lung cancer localized to the left lower lobe status post lobectomy was done around Yvonne time last year at [facility]. Patient did not have any radiation or chemotherapy he is able to see an oncologist after the surgery. Came in with severe shortness of breath. With hypoxia pulse ox in the 70s did ABG pulse pO2 is 59.5. 08/13/2018 patient has stage I lung cancer, status post left upper lobe lobectomy on June 19 at [facility]. He has postop complications and drainage from the chest tube as per the previous notices he was recently discharged from the hospital. Came to the emergency room last night yesterday evening rather with worsening shortness of breath. He was placed in the ICU here. Pulse ox is 94% on 6 L this morning. ABG was done this morning pH is 7.5/PCO2 61 PCO2 37.[address] Grier was at bedside, her input is appreciated. 08/14/2018 patient has a stage I lung cancer , post left upper lobe lobectomy in [facility] in June. Patient was hypoxic when he came to the emergency room. Yesterday pulse ox requirements are 6 L. Today pulse ox is a 99% on 3 L. Improved oxygenation. ABG done today is pending. Chest x-ray shows no si gnificant changes from yesterday. And is on vancomycin and levofloxacin. Sputum cultures blood cultures are pending. 08/15/2018-patient has stage 1 lung cancer with no metastasis, status post left u pper lobe lobectomy in the [facility] in June. Admitted for severe shortness of breath acute on chronic respiratory failure probably secondary to underlying pneumonia/left upper lobe lobectomy. Alessia is following the patient. She is presently on 3 L oxygen. Pulse ox is 94%. ABG done on 2 L this morning pH is 7.43/PCO2 43 PO2 53 bicarb is 28%. Patient is asymptomatic. 08/16/2018-patient was diagnosed with stage I lung cancer last year status post left upper lobe lobectomy in the [facility] on June 20. The procedure was comp complicated by recurrent infections and chronic chest tube drainage. He came to this hospital within 1 week of discharge from [facility]. As per the family he has appointments with allergy physician, oncologist in the coming week or 2. Patient is presently on 3 L oxygen pulse ox is 94%. Oncology consult was done during this hospitalization. 08/17/[id number]-dzef-old male who was diagnosed with stage I lung cancer last year status post left upper lobe lobectomy on June 19 at [facility] admitted here for severe shortness of breath and acute on chronic respiratory failure with hypoxia. Found to have right-sided pneumonia. Today pulse ox is 93% on 3.5 L. He uses 3 L oxygen at home. No acute events at this hospital stay. No need for BiPAP during the hospital stay. Patient has a pulmonology appointment tomorrow. He is going to go home on levofloxacin 500 mg p.o. daily for 7 days. Strongly advised to follow-up with oncologist in a week or 2. Patient and family agree with the discharge plan today. Acute on chronic respiratory failure with hypoxia is resolved. (2) Acute respiratory failure Is this a current diagnosis for this admission?: Yes Summary: 08/12/2018 patient came in with acute respiratory failure with hypoxia pulse ox on room air is 70%, and ABG PCO2 is 59.5. Acute respiratory failure may be secondary to recent left lower lobe lobectomy and a loss of lung volume. Plan is to put him in IMCU to start him on a BiPAP as needed if necessary patient and family agreed for the intubation. Consultation with Dr. Martinez was placed. We are going to do the daily ABGs. Started on IV steroids 40 mg daily 8 hours and Xopenex nebulizations every 8 hours. Started on levofloxacin 500 mg IV daily. Going to do the daily ABGs. 08/13/2018-patient came in with acute respiratory failure hypoxia. Pulse ox on 6 L this morning is 94%. ABG shows pH of 7.5 PCO2 37 PO2 61 bicarb was 28.6. Patient is on IV Solu-Medrol 40 mg every 8 hours, levofloxacin 500 mg IV daily and is getting Xopenex nebulizations. Chest physical therapy was requested. T he CT of the chest showing consolidation of the right lower lobe going to add Zosyn to the present antibiotic therapy. Blood cultures sputum cultures are pending. he is a full code. Family wants intubation if necessary. 08/14/2018-patient came in with acute respiratory failure with hypoxia. Today pulse ox on 3 L is 99%. ABG this morning is pending. Patient is currently on IV Solu-Medrol 40 mg every 8 hours, levofloxacin 500 mg IV daily, vancomycin IV in association with Xopenex nebulizations. He is also receiving chest physical therapy. Patient is full code. Follow-up chest x-ray done today shows no significant changes. Patient has a PICC line was placed yesterday. 08/15/2018 patient was admitted acute on chronic respiratory failure with hypoxia probably secondary to left upper lobe lobectomy and right lung consolidation. Pulse oxes are improving. Pulse ox on 3 L is 94%. And is on IV antibiotic therapy levofloxacin 500 mg IV daily, vancomycin IV daily, IV Solu-Medrol, Xope nex nebulizations. Plan is to continue the present management. 08/16/2018-patient is admitted with acute respiratory failure with hypoxia probably secondary to left upper lobe lobectomy and right-sided consolidation. Presently he is on now IV levofloxacin 500 mg daily IV vancomycin. He is also r eceiving Xopenex nebulizations. Sputum cultures blood cultures are negative. Pulse ox is 94% on 3 L. 08/17/2018-patient was admitted with acute on chronic respiratory failure with hypoxia initially requiring BiPAP secondary to left upper lobe lobectomy and right-sided pneumonia. He was treated with IV levofloxacin and vancomycin. The blood cultures sputum cultures came back negative. Patient recovered slowly and surely. Patient is afebrile for the last 48 hours. Prescription for levofloxa hyacinth 500 mg p.o. daily for 1 week was written. Patient was advised to continue home oxygen at home. Discussed the discharge plan with the family members. (3) COPD (chronic obstructive pulmonary disease) Is this a current diagnosis for this admission?: Yes Summary: 08/12/2018 patient has history of COPD not on home oxygen COPD most likely secondary to chronic smoking he stopped smoking a few months ago but he has 50 years of smoking history. Patient does not want to be on nicotine patch. 08/13/2018 patient has history of COPD secondary to chronic smoking he is not on home oxygen. Patient is presently on Solu-Medrol IV every every 8 hours rather, Xopenex nebulizations CPT was requested. 08/14/2018-patient has history of chronic COPD secondary to smoking. He is a not on home oxygen. Because of the problem with the concentration at home . Patient is presently on IV Solu-Medrol every 8 hours on receiving nebulizations along with chest physical therapy. Examination chest bilateral entry was severely decreased both sides and especially on the left upper chest because of the left upper lobectomy. 08/15/2018-patient has history of COPD secondary to chronic smoking. Patient is not on home oxygen because of the problem with a concentrator at home as per the . Pulse ox on 3 L today is 94%. Is getting a Xopenex nebulizations antibiotic therapy, chest physical therapy. Follow-up chest x-ray this morning indicates right-sided consolidation. cultures are pending. 08/16/2018-patient has history of COPD secondary to chronic smoking. He is on 3 L of oxygen at home. Pulse ox today is 94% on 3 L. He is receiving Xopenex nebulizations IV Solu-Medrol 40 mg every 8 hours chest physical therapy and antibiotic therapy. Chest physical therapy was discontinued yesterday. Solu- Medrol is decreased to 40 mg every 12 hours today. I am going to arrange for a follow-up chest x-ray tomorrow. Sputum cultures blood cultures are negative. 08/17/2018-patient has history of COPD secondary to chronic smoking. He is on 3 L of oxygen at home. Pulse ox today is 93% on 3.5 L. He is doing much better. He is going home on levofloxacin 500 mg p.o. daily for 1 week. Advised to continue the nebulizer treatments at home. (4) Anxiety Is this a current diagnosis for this admission?: Yes Summary: 08/12/2018 family is complaining that patient has anxiety disorder he is on alprazolam at home I started him on alprazolam 0.5 mg 3 times a day as needed for anxiety episodes. 08/13/2018 patient has generalized anxiety disorder, is on alprazolam 0.5 mg 3 times a day plan is to resume the medication here in the hospital. 08/14/2018-patient has history of generalized anxiety disorder he is taking alprazolam 0.5 mg 3 times daily at home those medications are resumed during the hospital stay. 08/15/2018 patient has history of anxiety disorder he is on alprazolam 1.5 mg p.o. 3 times a day at home which was continued during the hospital stay. 08/16/2018-patient has history of anxiety disorder on alprazolam. Plan is to continue the present management. 08/17/2018 family is concerned about his anxiety problems. He is not able to sleep well last night. The requesting prescription for alprazolam to take home. I gave the prescription for alprazolam 0.5 mg 3 times daily as needed for 10 days. Explained to the family members that further refills can be received from the PCP. (5) Sepsis Is this a current diagnosis for this admission?: Yes Summary: 08/12 2018 patient came in with hypoxia with pulse ox of 70%, tachycardia with heart rate more than 110 elevated WBC of 13,000+ but lactic acid is 1.5 patient was started on levofloxacin 500 mg IV daily blood cultures sputum cultures were requested to rule out sepsis. 08/13/2018-patient came in with hypoxia or tachycardia tachypnea but lactic acid level was normal chest x-ray shows consolidation probably he meets the criteria for sepsis. CTA shows opacification of the right lower lobe suggesting airspace disease, atelectasis versus consolidation. Patient was started on levofloxacin 400 mg IV daily yesterday and Zosyn was added to the medications today. 08/14/2018 patient came in with hypoxia tachypnea tachycardia hypotension and elevated lactic acid at the time of admission and chest x-ray shows possible consolidation at the bibasilar region. Think he meets the criteria for SIRS. Cultures and sputum cultures are pending. Patient is on levofloxacin 500 mg daily and IV vancomycin, vancomycin DOSE WILL be adjusted based on the pharmacY Recommendations. 08/15/2018 patient is on levofloxacin 500 mg IV daily also on IV vancomycin. Blood cultures and sputum cultures are negative so far. Plan is to continue the present management. His hypoxia and hypotension resolving. 08/16/2018 patient was admitted with sepsis. He is on IV levofloxacin and IV vancomycin so far cultures are negative. Hypotension is resolved hypoxia is resolving oxygen requirements are at baseline. X-ray shows stable right-sided consolidation. 08/17/2018 patient was admitted with sepsis at the time of admission he was tachypneic tachycardic hypotensive elevated lactic acid level and chest x-ray shows right-sided consolidation. Blood cultures sputum cultures came back negative was treated with IV vancomycin and levofloxacin for a few days and today he is on IV levofloxacin. Given a prescription for levofloxacin 500 mg p.o. daily for 1 week. Patient is afebrile for the last 48 hours. - Additional Information Resuscitation Status: Full Code Discharge Diet: Cardiac Discharge Activity: Activity As Tolerated Prescriptions: Alprazolam [Xanax] 0.5 mg PO TIDP PRN #30 tablet PRN Reason: FOR ANXIETY Levofloxacin [Levaquin 500 mg Tablet] 500 mg PO DAILY 5 Days #10 tablet Polyethylene Glycol 3350 [Miralax Powder 17 gm/Packet] 17 gm PO DAILY #10 powd.pack Home Medications: Ascorbic Acid [Vitamin C] 1,000 mg PO DAILY 08/12/17 Albuterol Sulfate [Ventolin 0.083% Neb 2.5 mg/3 mL Ampul] 3 ml IN QIDP PRN 08/12/18 Aspirin [Ecotrin 325 mg EC Tablet] 325 mg PO DAILY 08/12/18 Docusate Sodium [Colace] 100 mg PO BIDP PRN 08/12/18 Furosemide [Lasix 20 mg Tablet] 20 mg PO DAILY 08/12/18 Loratadine [Claritin] 10 mg PO DAILY 08/12/18 Potassium Chloride 20 meq PO DAILY 08/12/18 Tramadol HCl [Ultram] 50 mg PO Q6 08/12/18 Alprazolam [Xanax] 0.5 mg PO TIDP PRN #30 tablet 08/17/18 Budesonide/Formoterol Fumarate [Symbicort HFA 160-4.5 mcg Inhaler 6 gm] 2 puff IH Q12 inhaler 08/17/18 Calcium Carbonate [Tums Chewable 500 mg Tab.chew] 500 mg PO BIDP PRN tab.chew 08/17/18 Docusate Sodium [Colace 100 mg Capsule] 100 mg PO BID capsule 08/17/18 Levofloxacin [Levaquin 500 mg Tablet] 500 mg PO DAILY 5 Days #10 tablet 08/17/18 Nystatin [Mycostatin 500,000 Unit/5 ml Susp Udcup] 500,000 unit PO QID udc 08/17/18 Polyethylene Glycol 3350 [Miralax Powder 17 gm/Packet] 17 gm PO DAILY #10 powd.pack 08/17/18 Tramadol HCl [Ultram 50 mg Tablet] 50 mg PO Q6A tablet 08/17/18 History of Present Illness History of Present Illness: ESTEBAN CHOI is a 72 year old male with history of lung cancer with lung resection in the [facility] last month, history of anxiety disorder, chronic smoker came to the emergency room brought to the emergency room rather by the family members with complaints of increasing shortness of breath and chest pain. Family is also saying he has underlying COPD. This morning after eating breakfast he felt chest pain in the epigastric region chest pain was so bad 10 x 10 911 called the EMS came by the time patient was chest pain-free vital signs are stable and without further management EMS left again after lunch he is having the severe shortness of breath and chest pains compared to the family he feels like he is about to EMS was called again and they follow the pulse ox here is around 70% brought to the emergency room for further evaluation. In the emergency room he was initially placed on BiPAP and [facility] was notified and the ER physician talked to the surgeon they to transfer the patient unfortunately they do not have any beds available in the ICU in case if the patient is intubated here they are willing to accept the patient updated. So medical consult was called for admission to the ICU. I went to talk to the patient and the family members they want him a full code patient wants to be full code. Confirmed history the ER physician told me about shortness of breath and associated chest pains. CT of the chest was ordered in the ER and which was pending. The ABG shows P O2 of 59.5. PCO2 39.6. Patient is hyperventilating with pH of 7.5. Physical Exam Vital Signs: Temp Pulse Resp BP Pulse Ox 97.6 F 104 H 12 143/65 H 92 08/17/18 11:30 08/17/18 11:30 08/17/18 11:30 08/17/18 11:30 08/17/18 11:30 Intake & Output 08/16/18 08/17/18 08/18/18 06:59 06:59 06:59 Intake Total 1608 450 Output Total 2024 1350 Balance -417 -900 Weight 54.9 kg 53.7 kg General appearance: PRESENT: no acute distress, thin Eye exam: PRESENT: PERRLA Mouth exam: PRESENT: moist Neck exam: ABSENT: carotid bruit, JVD, lymphadenopathy, thyromegaly Respiratory exam: PRESENT: decreased breath sounds Cardiovascular exam: PRESENT: tachycardia GI/Abdominal exam: PRESENT: normal bowel sounds, soft. ABSENT: distended, guarding, mass, organolmegaly, rebound, tenderness Extremities exam: PRESENT: full ROM. ABSENT: calf tenderness, clubbing, pedal edema Neurological exam: PRESENT: alert, awake, oriented to person, oriented to place, oriented to time, oriented to situation, CN II-XII grossly intact. ABSENT: motor sensory deficit Psychiatric exam: PRESENT: appropriate affect, normal mood. ABSENT: homicidal ideation, suicidal ideation Results Laboratory Results: 08/17/18 04:00 08/17/18 04:00 08/17/18 08/17/18 04:00 04:00 WBC 10.9 H RBC 4.01 L Hgb 11.1 L Hct 34.2 L MCV 85 MCH 27.8 MCHC 32.6 RDW 20.7 H Plt Count 614 H Seg Neutrophils % 79.9 H Lymphocytes % 10.9 L Monocytes % 9.2 Eosinophils % 0.0 Basophils % 0.0 Absolute Neutrophils 8.7 H Absolute Lymphocytes 1.2 Absolute Monocytes 1.0 Absolute Eosinophils 0.0 Absolute Basophils 0.0 Sodium 137.0 Potassium 4.4 Chloride 95 L Carbon Dioxide 33 H Anion Gap 9 BUN 18 Creatinine 0.65 Est GFR ( Amer) > 60 Est GFR (Non-Af Amer) > 60 Glucose 97 Calcium 9.0 Magnesium 2.2 Total Bilirubin 0.2 AST 11 L ALT 19 L Alkaline Phosphatase 85 Total Protein 5.5 L Albumin 3.2 L 08/12/18 08/12/18 08/12/18 13:15 13:15 19:36 Creatine Kinase 26 L < 20 L CK-MB (CK-2) 0.79 Troponin I 0.014 NT-Pro-B Natriuret Pep 996 H 08/12/18 08/13/18 08/13/18 19:36 01:12 01:12 Creatine Kinase < 20 L CK-MB (CK-2) 0.75 0.96 Troponin I 0.014 0.017 NT-Pro-B Natriuret Pep 08/13/18 08/13/18 08/15/18 09:02 09:02 06:18 Creatine Kinase < 20 L CK-MB (CK-2) 1.01 Troponin I < 0.012 NT-Pro-B Natriuret Pep 471 Impressions: Chest/Abdomen CTA 08/12/18 17:28 IMPRESSION: 1. There is no evidence of pulmonary emboli. 2. There are marked changes in the left hemithorax that are likely chronic but we have no earlier studies. There is marked pneumothorax with very extensive atelectasis and only a small amount of aerated lung. Cannot entirely exclude a pneumonia in the left lower lobe. There is some pleural fluid. 3. Extensive pulmonary emphysema in the right lung. 4. Opacification the right lower lobe suggesting airspace disease, atelectasis versus consolidation. Guidance Fluoroscopy 08/13/18 00:00 IMPRESSION: SUCCESSFUL PLACEMENT OF A 5 FR DUAL LUMEN 40 CM PICC IN THE LEFT BASILIC VEIN. Interventional Vascular Procedure 08/13/18 00:00 IMPRESSION: SUCCESSFUL PLACEMENT OF A 5 FR DUAL LUMEN 40 CM PICC IN THE LEFT BASILIC VEIN. PICC Line Insertion 08/13/18 00:00 IMPRESSION: SUCCESSFUL PLACEMENT OF A 5 FR DUAL LUMEN 40 CM PICC IN THE LEFT BASILIC VEIN. Chest X-Ray 08/17/18 07:30 IMPRESSION: No significant change with persistent left basilar consolidation with lower lobe volume loss and likely mild effusion. Qualifiers - * PATIENT BEING DISCHARGED WITH ANY OF THE FOLLOWING DIAGNOSIS: No VTE patient discharged on overlapping Therapy?: No
[2018-08-17] MEDS ORDERED: BISACODYL 10 MG SUPP.RECT PR ONE (13:00)
[2018-08-17 14:53] VITALS: BP 120/67
== END 2018-08-17 15:25 | disposition home or self-care (01) | DRG 871 ==
LOC: ER 13:05 → EH 18:20 → ICU 23:24 → 3W 08-14 19:47
PROVIDERS: ADMIT Internal Medicine; ATTEND Internal Medicine
PROC: 3E0F73Z Introduction of Anti-inflammatory into Respiratory Tract, Via Natural or Artificial Opening (ICD-10-PCS; 2018-08-12)
PROC: 02HV33Z Insertion of Infusion Device into Superior Vena Cava, Percutaneous Approach (ICD-10-PCS; principal; 2018-08-13)
PROC: B518ZZA Fluoroscopy of Superior Vena Cava, Guidance (ICD-10-PCS; 2018-08-13)
PROC: B548ZZA Ultrasonography of Superior Vena Cava, Guidance (ICD-10-PCS; 2018-08-13)
DX: A41.9 Sepsis, unspecified organism (principal); J96.01 Acute respiratory failure with hypoxia; J18.9 Pneumonia, unspecified organism; C34.32 Malignant neoplasm of lower lobe, left bronchus or lung; F41.1 Generalized anxiety disorder; J44.9 Chronic obstructive pulmonary disease, unspecified; Z90.2 Acquired absence of lung [part of]; Z87.891 Personal history of nicotine dependence; Z88.0 Allergy status to penicillin; Z88.1 Allergy status to other antibiotic agents; Z88.8 Allergy status to other drugs, medicaments and biological substances
CPT/HCPCS: 36415; 36569; 71045; 71046; 71275; 76937; 77001; 80053; 80061; 80202; 80307; 81001; 82550; 82553; 82803; 83605; 83735; 83880; 84443; 84484; 85025; 85610; 87040; 87070; 87205; 93005; 93010; 94640; 94667; 94668; 96361; 96374; 99291; C1769; J1642; J1650; J1885; J1956; J2405; J2920; J3370; J3490; J7030; J7060; S0028

== ENCOUNTER 2018-08-22 10:48 | Emergency (ER) | payer MEDICARE, OTHER ==
--- NOTE | 2018-08-22 11:16 | ER Document Report ---
ED General - General Chief Complaint: Inability to Void Stated Complaint: DIFFICULTY URINATING Time Seen by Provider: 08/22/18 11:08 Primary Care Provider: [facility] [Provider Group] - 08/24/18 OLIVERIO TORRES MD [Primary Care Provider] - 08/24/18 TRAVEL OUTSIDE OF THE [place] IN LAST 30 DAYS: No - HPI Notes: Patient is a 72-year-old male with a history of COPD and stage I lung cancer who presents to the emergency department complaining of dysuria and urinary retention. Patient states that this started this past night. He also woke up with a sore throat. Patient was recently admitted for pneumonia. He is currently on Levaquin. Patient states that aside from the urinary issue and the sore throat he feels rather well. He is eating and drinking without difficulty. Patient states that he is still having normal bowel movements with 2 of them this morning. No other concerns or complaints. Patient states that this has happened before and has needed a catheter placed. Denies any headache, fever, neck pain, URI, chest pain, palpitations, syncope, cough, shortness of breath, wheeze, dyspnea, abdominal pain, nausea/vomiting/diarrhea, loss of control of bowel or bladder, numbness/tingling, saddle anesthesia, muscle paralysis/weakness, or rash. - Related Data Allergies/Adverse Reactions: Penicillins Allergy (Severe, Verified 08/22/18 10:50) shock clarithromycin Allergy (Verified 08/22/18 10:50) fluconazole [From Diflucan] Allergy (Verified 08/22/18 10:50) Tachycardia indomethacin [From Indocin] Allergy (Verified 08/22/18 10:50) Migraine meperidine [From Demerol] Allergy (Verified 08/22/18 10:50) Syncope pseudoephedrine [From Sudafed] Allergy (Verified 08/22/18 10:50) tremor Past Medical History - Social History Smoking Status: Former Smoker Family History: Reviewed & Not Pertinent - Past Medical History Cardiac Medical History: Denies: Hx Heart Attack, Hx Hypertension Pulmonary Medical History: Denies: Hx Asthma Neurological Medical History: Denies: Hx Cerebrovascular Accident, Hx Seizures Renal/ Medical History: Denies: Hx Peritoneal Dialysis Malignancy Medical History: Reports Hx Lung Cancer GI Medical History: Denies: Hx Hepatitis, Hx Hiatal Hernia, Hx Ulcer Infectious Medical History: Denies: Hx Hepatitis Past Surgical History: Reports: Other - Patient has 2 back surgeries left-sided partial lung resection. Denies: Hx Open Heart Surgery, Hx Pacemaker Review of Systems - Review of Systems -: Yes All other systems reviewed and negative Physical Exam - Vital signs Vitals: Pulse Resp BP Pulse Ox 100 20 163/92 H 100 08/22/18 11:00 08/22/18 11:00 08/22/18 11:00 08/22/18 11:00 - Notes Notes: PHYSICAL EXAMINATION: GENERAL: Well-appearing, well-nourished and in no acute distress. A&Ox4. Answers questions appropriately. HEAD: Atraumatic, normocephalic. EYES: Pupils equal round and reactive to light, extraocular movements intact, sclera anicteric, conjunctiva are normal. ENT: Nares patent and without discharge. oropharynx clear without exudates, mi ld erythema. No tonsilar hypertrophy or erythema. Moist mucous membranes. NECK: Normal range of motion, supple without lymphadenopathy LUNGS: Breath sounds clear to auscultation bilaterally and equal. No wheezes rales or rhonchi. HEART: Regular rate and rhythm without murmurs, rubs, gallops. ABDOMEN: Soft, nontender, nondistended abdomen. No guarding, no rebound. No masses appreciated. Normal bowel sounds present. No CVA tenderness bilaterally. Musculoskeletal: FROM to passive/active. Strength 5+/5. Extremities: No cyanosis, clubbing, or edema b/l. Peripheral pulses 2+. Capi llary refill less than 3 seconds. NEUROLOGICAL: Cranial nerves grossly intact. Normal speech, normal gait. PSYCH: Normal mood, normal affect. SKIN: Warm, Dry, normal turgor, no rashes or lesions noted. Course - Re-evaluation Re-evalutation: 08/22/18 12:39 Patient is an afebrile, well-hydrated M 72-year-old male who presents to the emergency department with urinary retention. Vitals are acceptable without significant tachycardia, tachypnea, or hypoxia. PE is otherwise unremarkable. Patient's abdomen is soft nontender. He is nontoxic-appearing and is tolerating p.o. without difficulty. Patient tried urinating on his own and was only able to get out less than 5 cc. A Igleisas catheter was placed and over 800+ liters of urine was obtained. Patient states that he is feeling much better. We will leave a Iglesias in place until evaluation with his PCM/urologist. CBC, CMP, urinalysis unremarkable. Rapid strep was negative. No further labs or imaging warranted at this time. Low suspicion/risk for acute appendicitis, bowel obstruction, acute cholecystitis, perforated diverticulitis, incarcerated hernia, pancreatitis, perforated ulcer, peritonitis, sepsis, or other systemic emergent condition at this time. Patient is aware that his condition can change from initial presentation and he needs to monitor symptoms closely and seek medical attention if any acute changes. Conservative measures otherwise for symptoms. Recheck with PCM/urology in 2-3 days. Return to the ED with any worsening/concerning symptoms otherwise as reviewed in discharge. Patient is in agreement. - Vital Signs Vital signs: Temp Pulse Resp BP Pulse Ox 100 20 163/92 H 100 08/22/18 11:00 08/22/18 11:00 08/22/18 11:00 08/22/18 11:00 - Laboratory Result Diagrams: 08/22/18 12:10 08/22/18 12:10 Laboratory results interpreted by me: 08/22/18 08/22/18 08/22/18 11:50 12:10 12:10 WBC 11.3 H RBC 4.03 L Hgb 11.3 L Hct 33.7 L RDW 19.4 H Plt Count 569 H Seg Neutrophils % 81.9 H Lymphocytes % 7.5 L Absolute Neutrophils 9.3 H Sodium 134.9 L Creatinine 0.48 L AST 16 L Total Protein 5.4 L Albumin 3.1 L Urine Ascorbic Acid 20 H Discharge - Discharge Clinical Impression: Urinary retention Condition: Stable Disposition: HOME, SELF-CARE Additional Instructions: Maintain adequate fluid intake Proper hygenic technique Keep the skin clean Tylenol as needed Leave the Igleisas catheter in place until evaluation with your family doctor and/or urology Take medications as directed F/u with your PCM/urology in 2-3 days for a recheck Return to the ED with any worsening symptoms and/or development of fever, headache, chest pain, palpitations, syncope, shortness of breath, trouble breathing, abdominal pain, n/v/d, blood in stool/urine, loss of control of bowel/bladder, urinary retention, or other worsening symptoms that are concerning to you. Forms: Elevated Blood Pressure Referrals: OLIVERIO TORRES MD [Primary Care Provider] - 08/24/18 [facility] [Provider Group] - 08/24/18
[2018-08-22] MEDS ORDERED: LIDOCAINE 2% URO-JET 5 ML KIT MM ONE (11:32)
[2018-08-22 12:16] LABS: ABSOLUTE EOSINOPHILS # (AUTO) 0.1 10^3/uL (0.0-0.6); ABSOLUTE LYMPHOCYTES (AUTO) 0.8 10^3/uL (0.5-4.7); ABSOLUTE MONOCYTES (AUTO) 1.1 10^3/uL (0.1-1.4); ABSOLUTE NEUT (AUTO) 9.3 10^3/uL (1.7-8.2); BASOPHILS % (AUTO) 0.3 % (0-2); EOSINOPHILS % (AUTO) 0.6 % (0-6); HEMATOCRIT 33.7 % (37.9-51.0); HEMOGLOBIN 11.3 g/dL (13.5-17.0); LYMPHOCYTES % (AUTO) 7.5 % (13-45); MEAN CORPUSCULAR HGB CONC 33.4 g/dL (32.0-36.0); MEAN CORPUSCULAR VOLUME 84 fl (80-97); MONOCYTES % (AUTO) 9.7 % (3-13); PLATELET COUNT 569 10^3/uL (150-450); RED BLOOD COUNT 4.03 10^6/uL (4.35-5.55); RED CELL DISTRIBUTION WIDTH 19.4 % (11.5-14.0); SEGMENTED NEUTROPHILS % (AUTO) 81.9 % (42-78); TOTAL CELLS COUNTED % (AUTO) 100 %; WHITE BLOOD COUNT 11.3 10^3/uL (4.0-10.5)
[2018-08-22 12:17] LABS: APPEARANCE,URINE CLEAR; BILIRUBIN,URINE NEGATIVE (NEGATIVE); COLOR,URINE STRAW; GLUCOSE, URINE NEGATIVE (NEGATIVE); KETONES,URINE NEGATIVE (NEGATIVE); LEUKOCYTE ESTERASE,URINE NEGATIVE (NEGATIVE); NITRITE,URINE NEGATIVE (NEGATIVE); PROTEIN,URINE NEGATIVE (NEGATIVE); URINE SPECIFIC GRAVITY 1.009; UROBILINOGEN,URINE NEGATIVE mg/dL (<2.0)
[2018-08-22 12:33] LABS: ALANINE AMINOTRANSFERASE 25 U/L (21-72); ALBUMIN 3.1 g/dL (3.5-5.0); ALKALINE PHOSPHATASE 124 U/L (38-126); ANION GAP 8 (5-19); ASPARTATE AMINO TRANSFERASE 16 U/L (17-59); BILIRUBIN,DIRECT 0.1 mg/dL (0.0-0.4); BILIRUBIN,TOTAL 0.2 mg/dL (0.2-1.3); BLOOD UREA NITROGEN 18 mg/dL (7-20); CALCIUM 8.9 mg/dL (8.4-10.2); CARBON DIOXIDE 29 mmol/L (22-30); CHLORIDE 98 mmol/L (98-107); GLUCOSE 96 mg/dL (75-110); POTASSIUM 4.9 mmol/L (3.6-5.0); SODIUM 134.9 mmol/L (137-145); TOTAL PROTEIN 5.4 g/dL (6.3-8.2)
[2018-08-22 13:42] VITALS: BP 119/67
== END 2018-08-22 13:42 | disposition home or self-care (01) ==
LOC: ER 10:48
DX: R33.9 Retention of urine, unspecified (principal); J44.9 Chronic obstructive pulmonary disease, unspecified; Z88.0 Allergy status to penicillin; Z88.3 Allergy status to other anti-infective agents; Z85.118 Personal history of other malignant neoplasm of bronchus and lung
CPT/HCPCS: 99283; 51702; 36415; 87070; 87086; 87880; 85025; 80053; 81001; C1758; A9270; J3490

== ENCOUNTER 2018-11-30 10:34 | Emergency (ER) | payer MEDICARE, OTHER ==
--- NOTE | 2018-11-30 11:11 | ER Document Report ---
ED Medical Screen (RME) - General Chief Complaint: Tremor Stated Complaint: LEFT LEG TREMOR Time Seen by Provider: 11/30/18 11:09 Primary Care Provider: OLIVERIO TORRES MD [Primary Care Provider] - Follow up as needed Mode of Arrival: Wheelchair Information source: Patient, Relative Notes: 73-year-old male presents to ED for left leg tremors and weakness. She states the similar pain he had left upper lobe lung cancer and had a left upper lobe removed. He states he has had vertigo for the last for 5 days he has a history of COPD benign prostate hyperplasia. He has had back surgeries and rotator cuff on the right surgery. He does not smoke drink or do any drugs he lives with his and does not work. He is alert oriented and does have minimal tremors to the left leg. I have greeted and performed a rapid initial assessment of this patient. A comprehensive ED assessment and evaluation of the patient, analysis of test results and completion of medical decision making process will be conducted by an additional ED providers. Dictation of this chart was performed using voice recognition software; therefore, there may be some unintended grammatical errors. TRAVEL OUTSIDE OF THE [place] IN LAST 30 DAYS: No - Related Data Allergies/Adverse Reactions: Penicillins Allergy (Severe, Verified 11/30/18 10:41) shock clarithromycin Allergy (Verified 11/30/18 10:41) fluconazole [From Diflucan] Allergy (Verified 11/30/18 10:41) Tachycardia indomethacin [From Indocin] Allergy (Verified 11/30/18 10:41) Migraine meperidine [From Demerol] Allergy (Verified 11/30/18 10:41) Syncope pseudoephedrine [From Sudafed] Allergy (Verified 11/30/18 10:41) tremor zolpidem [From Ambien] Allergy (Verified 11/30/18 10:41) Past Medical History - Past Medical History Cardiac Medical History: Denies: Hx Heart Attack, Hx Hypertension Pulmonary Medical History: Denies: Hx Asthma Neurological Medical History: Denies: Hx Cerebrovascular Accident, Hx Seizures Renal/ Medical History: Denies: Hx Peritoneal Dialysis Malignancy Medical History: Reports Hx Lung Cancer GI Medical History: Denies: Hx Hepatitis, Hx Hiatal Hernia, Hx Ulcer Infectious Medical History: Denies: Hx Hepatitis Past Surgical History: Reports: Other - Patient has 2 back surgeries left-sided partial lung resection. Denies: Hx Open Heart Surgery, Hx Pacemaker Physical Exam - Vital signs Vitals: Temp Pulse Resp BP Pulse Ox 97.7 F 80 17 110/63 98 11/30/18 10:45 11/30/18 10:45 11/30/18 10:45 11/30/18 10:45 11/30/18 10:45 Course - Vital Signs Vital signs: Temp Pulse Resp BP Pulse Ox 97.7 F 80 17 110/63 98 11/30/18 10:45 11/30/18 10:45 11/30/18 10:45 11/30/18 10:45 11/30/18 10:45 Doctor's Discharge - Discharge Referrals: OLIVERIO TORRES MD [Primary Care Provider] - Follow up as needed
[2018-11-30 11:40] LABS: ABSOLUTE BASOPHILS # (AUTO) 0.1 10^3/uL (0.0-0.2); ABSOLUTE EOSINOPHILS # (AUTO) 0.1 10^3/uL (0.0-0.6); ABSOLUTE LYMPHOCYTES (AUTO) 1.5 10^3/uL (0.5-4.7); ABSOLUTE MONOCYTES (AUTO) 0.6 10^3/uL (0.1-1.4); ABSOLUTE NEUT (AUTO) 4.9 10^3/uL (1.7-8.2); BASOPHILS % (AUTO) 1.4 % (0-2); EOSINOPHILS % (AUTO) 1.8 % (0-6); HEMATOCRIT 38.3 % (37.9-51.0); HEMOGLOBIN 12.4 g/dL (13.5-17.0); LYMPHOCYTES % (AUTO) 20.4 % (13-45); MEAN CORPUSCULAR HGB CONC 32.3 g/dL (32.0-36.0); MEAN CORPUSCULAR VOLUME 77 fl (80-97); MONOCYTES % (AUTO) 8.6 % (3-13); PLATELET COUNT 517 10^3/uL (150-450); RED BLOOD COUNT 4.95 10^6/uL (4.35-5.55); RED CELL DISTRIBUTION WIDTH 17.4 % (11.5-14.0); SEGMENTED NEUTROPHILS % (AUTO) 67.8 % (42-78); TOTAL CELLS COUNTED % (AUTO) 100 %; WHITE BLOOD COUNT 7.3 10^3/uL (4.0-10.5)
[2018-11-30 11:58] LABS: ALANINE AMINOTRANSFERASE 23 U/L (21-72); ALBUMIN 3.8 g/dL (3.5-5.0); ALKALINE PHOSPHATASE 231 U/L (38-126); ANION GAP 9 (5-19); ASPARTATE AMINO TRANSFERASE 49 U/L (17-59); BILIRUBIN,DIRECT 0.3 mg/dL (0.0-0.4); BILIRUBIN,TOTAL 0.4 mg/dL (0.2-1.3); BLOOD UREA NITROGEN 18 mg/dL (7-20); CALCIUM 9.7 mg/dL (8.4-10.2); CARBON DIOXIDE 28 mmol/L (22-30); CHLORIDE 102 mmol/L (98-107); GLUCOSE 86 mg/dL (75-110); PHOSPHORUS 4.7 mg/dL (2.5-4.5); POTASSIUM 5.1 mmol/L (3.6-5.0); SODIUM 138.6 mmol/L (137-145)
[2018-11-30] MEDS ORDERED: NORMAL SALINE 500 ML IV ONE (14:36)
--- NOTE | 2018-11-30 14:36 | ER Document Report ---
ED General - General Chief Complaint: Tremor Stated Complaint: LEFT LEG TREMOR Time Seen by Provider: 11/30/18 11:09 Primary Care Provider: ALCON GRIER MD [ACTIVE STAFF] - 12/01/18 9:45 am OLIVERIO TORRES MD [Primary Care Provider] - Follow up as needed Mode of Arrival: Wheelchair Notes: Patient is a 73-year-old male with history of squamous cell lung carcinoma that presents to the emergency department for chief complaint of left leg twitching. Patient states that this morning he started noticing weakness in his left leg, and spasticity movements, that would come and go intermittently. He went to his ear nose and throat doctor today for vertigo which he has had for a long time, a nd they recommended that he go to the emergency department to have this evaluated including a CT scan of his head. Patient denies having any pain at this time, denies any headaches, lightheadedness, dizziness, chest pain, shortness of breath, nausea or vomiting. He states that his vertigo is well controlled at this time. He denies any pain in his legs. He does complain of some mild low back pain currently rates it as a 2 out of 10, which is chronic for him, he has a history of low back pain and back surgeries. Past Medical History: Squamous cell lung carcinoma, chronic low back pain, vert igo Past Surgical History: Left partial pneumonectomy, lumbar back surgery Social History: Former heavy smoker, denies alcohol or drug use. Family History: Reviewed and noncontributory for presenting illness Allergies: Reviewed, see documented allergy list. REVIEW OF SYSTEMS: Other than noted above, the 12 point review of systems was reviewed with the patient and were negative, all pertinent findings are included in the HPI. PHYSICAL EXAMINATION: Vital signs reviewed, nursing noted reviewed. GENERAL: Elderly male, no acute distress HEAD: Atraumatic, normocephalic. EYES: Eyes appear normal, extraocular movements intact, sclera anicteric, conjunctiva are normal. ENT: nares patent, oropharynx clear without exudates. Moist mucous membranes. NECK: Normal range of motion, supple without lymphadenopathy LUNGS: Breath sounds clear to auscultation bilaterally and equal. No wheezes ra les or rhonchi. HEART: Regular rate and rhythm without murmurs ABDOMEN: Soft, nontender, normoactive bowel sounds. No rebound, guarding, or rigidity. No masses appreciated. EXTREMITIES: Nontender, good range of motion, no pitting or edema. NEUROLOGICAL: No focal neurological deficits. Moves all extremities spontaneously Motor and sensory grossly intact on exam. Muscular motor strength is +5/5 distally in all extremities particularly in the lower extremities, his strength with dorsiflexion, plantarflexion and extension of the hallucis longus tendon, is +5/5 strength. I do not appreciate any clonus on his exam, he did have normal, Babinski bilaterally. PSYCH: Normal mood, normal affect. SKIN: Warm, Dry, normal turgor, no rashes or lesions noted on exposed skin TRAVEL OUTSIDE OF THE [place] IN LAST 30 DAYS: No - Related Data Allergies/Adverse Reactions: Penicillins Allergy (Severe, Verified 11/30/18 10:41) shock clarithromycin Allergy (Verified 11/30/18 10:41) fluconazole [From Diflucan] Allergy (Verified 11/30/18 10:41) Tachycardia indomethacin [From Indocin] Allergy (Verified 11/30/18 10:41) Migraine meperidine [From Demerol] Allergy (Verified 11/30/18 10:41) Syncope pseudoephedrine [From Sudafed] Allergy (Verified 11/30/18 10:41) tremor zolpidem [From Ambien] Allergy (Verified 11/30/18 10:41) Past Medical History - General Information source: Patient, Relative - Social History Smoking Status: Former Smoker Chew tobacco use (# tins/day): No Frequency of alcohol use: None Drug Abuse: None Family History: Reviewed & Not Pertinent Patient has suicidal ideation: No Patient has homicidal ideation: No - Past Medical History Cardiac Medical History: Denies: Hx Heart Attack, Hx Hypertension Pulmonary Medical History: Denies: Hx Asthma Neurological Medical History: Denies: Hx Cerebrovascular Accident, Hx Seizures Renal/ Medical History: Denies: Hx Peritoneal Dialysis Malignancy Medical History: Reports Hx Lung Cancer GI Medical History: Denies: Hx Hepatitis, Hx Hiatal Hernia, Hx Ulcer Infectious Medical History: Denies: Hx Hepatitis Past Surgical History: Reports: Other - Patient has 2 back surgeries left-sided partial lung resection. Denies: Hx Open Heart Surgery, Hx Pacemaker Physical Exam - Vital signs Vitals: Temp Pulse Resp BP Pulse Ox 97.7 F 80 17 110/63 98 11/30/18 10:45 11/30/18 10:45 11/30/18 10:45 11/30/18 10:45 11/30/18 10:45 Course - Re-evaluation Re-evalutation: Patient seen and examined vital signs reviewed. Laboratory data and/or imaging were ordered as appropriate for the patient's presenting symptoms and complaint, with consideration of any critical or life threatening conditions that may be associated with their obtained history and exam as noted above. Patient was treated with IV Decadron, and given a dose of p.o. Keppra 500 mg, after reviewing the patient's CT imaging, he was noted to have a right parietal lobe brain metastases, which likely is explaining the patient's spasticity in his left lower extremities along with his intermittent weakness. He is also noted to have innumerable metastases to the liver. I discussed these findings with the radiologist. I spent a significant amount of time discussing this with both the patient and the patient's family, I called the patient's oncologist to discuss plan of care, they recommended having the patient getting set up for radiation therapy for his brain metastases as soon as possible, however the patient's oncologist, is a significant drive for the family, and I offered to have him set up with oncology at our institution, after discussing this with the patient's oncologist they were agreeable that it would be more beneficial for them to drive to a closer facility to have radiation therapy. I called our on- call oncologist Dr. Myles, he was more than happy to see the patient, they scheduled him to be seen at 945 tomorrow morning, with Dr. Grier. I discussed this with the patient's family and the patient, and there were happy with this plan of care, he will be discharged home on Keppra 500 mg twice daily, and Decadron 4 mg 4 times daily. The rest the patient's evaluation from a blood work standpoint was otherwise unremarkable. The patient was re-evaluated and was stable, no further spasticity Evaluation was most consistent with tremor/spasticity versus partial seizure, secondary to brain metastases, liver metastases Results were discussed with the patient at this point, after careful consideration I feel that that patient can be discharged from the emergency department, the patient was educated treatments and reasons to return to the emergency department based on their presumed diagnosis as noted above, they were advised to followup with a primary care physician in 2-3 days. Patient was agreeable to plan of care. *Note is created using voice recognition software and may contain spelling, syntax or grammatical errors. Laboratory 11/30/18 11/30/18 11:20 11:20 WBC 7.3 RBC 4.95 Hgb 12.4 L Hct 38.3 MCV 77 L MCH 25.0 L MCHC 32.3 RDW 17.4 H Plt Count 517 H Seg Neutrophils % 67.8 Lymphocytes % 20.4 Monocytes % 8.6 Eosinophils % 1.8 Basophils % 1.4 Absolute Neutrophils 4.9 Absolute Lymphocytes 1.5 Absolute Monocytes 0.6 Absolute Eosinophils 0.1 Absolute Basophils 0.1 Sodium 138.6 Potassium 5.1 H Chloride 102 Carbon Dioxide 28 Anion Gap 9 BUN 18 Creatinine 0.74 Est GFR ( Amer) > 60 Est GFR (Non-Af Amer) > 60 Glucose 86 Calcium 9.7 Phosphorus 4.7 H Magnesium 2.2 Total Bilirubin 0.4 Direct Bilirubin 0.3 Neonat Total Bilirubin Not Reportable Neonat Direct Bilirubin Not Reportable Neonat Indirect Bili Not Reportable AST 49 ALT 23 Alkaline Phosphatase 231 H Total Protein 7.[address] 11/30/18 14:32 IMPRESSION: 4 x 2.6 cm mass in the right parietal region worrisome for a brain metastatic lesion given history of lung cancer. EVIDENCE OF ACUTE STROKE: NO. Abdomen/Pelvis CT 11/30/18 14:35 IMPRESSION: Old post therapeutic changes left hemithorax from treatment lung cancer, stable. Multiple liver masses are now present worrisome for metastatic disease. Chest CT 11/30/18 14:35 IMPRESSION: Old post therapeutic changes left hemithorax from treatment lung cancer, stable. Multiple liver masses are now present worrisome for metastatic disease. - Vital Signs Vital signs: Temp Pulse Resp BP Pulse Ox 97.7 F 79 14 156/80 H 93 11/30/18 10:45 11/30/18 12:26 11/30/18 18:24 11/30/18 18:24 11/30/18 18:24 - Laboratory Result Diagrams: 11/30/18 11:20 11/30/18 11:20 Laboratory results interpreted by me: 11/30/18 11/30/18 11:20 11:20 Hgb 12.4 L MCV 77 L MCH 25.0 L RDW 17.4 H Plt Count 517 H Potassium 5.1 H Phosphorus 4.7 H Alkaline Phosphatase 231 H Critical Care Note - Critical Care Note Total time excluding time spent on procedures (mins): 35 Comments: Critical care time 35 minutes exclusive from separate billable procedures for a patient requiring complex medical decision making, and high potential for clinical deterioration. The patient with a brain metastases, requiring extensive conversations and set up for this patient to have expedited outpatient radiation therapy. Time spent obtaining history from patient or surrogate, discussions with consultants, development of treatment plan with patient or surrogate, evaluation of patient's response to treatment, examination of patient, ordering and performing treatments and interventions, ordering and review of laboratory studies, re-evaluation of patient's condition, ordering and review of radiographic studies and review of old charts Discharge - Discharge Clinical Impression: Brain metastasis, Partial seizure, Liver metastasis Condition: Stable Disposition: HOME, SELF-CARE Additional Instructions: Please follow-up with Dr. Grier tomorrow, at the appointment at the [facility] oncology outpatient center, at 9:45 AM. Prescriptions: Dexamethasone [Decadron 4 Mg Tablet] 4 mg PO QID #60 tablet Levetiracetam [Keppra 500 mg Tablet] 500 mg PO Q12 #60 tablet Referrals: OLIVERIO TORRES MD [Primary Care Provider] - Follow up as needed ALCON GRIER MD [ACTIVE STAFF] - 12/01/18 9:45 am
--- NOTE | 2018-11-30 15:20 | RADIOLOGY REPORT (SQ) ---
EXAM DESCRIPTION: CT HEAD WITHOUT COMPLETED DATE/TIME: 11/30/2018 3:01 pm REASON FOR STUDY: left leg tremor COMPARISON: No previous brain parenchymal imaging TECHNIQUE: Axial images acquired through the brain without intravenous contrast. Images reviewed wi th bone, brain and subdural windows. Additional sagittal and coronal reconstructions were generated. Images stored on PACS. All CT scanners at this facility use dose modulation, iterative reconstruction, and/or weight based d osing when appropriate to reduce radiation dose to as low as reasonably achievable (ALARA). [facility]: Dose Right [facility]: CareDose [facility]: Dose Right [facility]: Teradose 4D [facility]: [employer] RADIATION DOSE: CT Rad equipment meets quality standard of care and radiation dose reduction techniq ues were employed. CTDIvol: 53.2 mGy. DLP: 1044 mGy-cm. mGy. LIMITATIONS: None. FINDINGS: VENTRICLES: Normal size and contour. CEREBRUM: Right parietal brain mass is present with surrounding edema, mild local mass effect. Mass measures 4 cm AP by 2.6 cm transverse and likely represents a brain metastatic lesion given history o f lung cancer. No CT evidence of acute large territory ischemic change, acute intracranial hemorrhage, mass effect, or midline shift. CEREBELLUM: No masses. No hemorrhage. No alteration of density. No evidence for acute infarction. EXTRAAXIAL SPACES: No fluid collections. No masses. ORBITS AND GLOBE: No intra- or extraconal masses. Normal contour of globe without masses. CALVARIUM: No fracture. PARANASAL SINUSES: No fluid or mucosal thickening. SOFT TISSUES: No mass or hematoma. OTHER: No other significant finding. IMPRESSION: 4 x 2.6 cm mass in the right parietal region worrisome for a brain metastatic lesion giv en history of lung cancer. EVIDENCE OF ACUTE STROKE: NO. COMMENT: Quality ID # [id number]: Final reports with documentation of one or more dose reduction techniques (e.g., Automated exposure control, adjustment of the mA and/or kV according to patient size, use of iterative reconstruction technique) TECHNICAL DOCUMENTATION: JOB ID: [id number] [employer]- All Rights Reserved Reading location - IP/workstation name: [email or web address]
--- NOTE | 2018-11-30 15:28 | RADIOLOGY REPORT (SQ) ---
EXAM DESCRIPTION: CT CHEST WITHOUT; CT ABD/PELVIS NO ORAL OR IV COMPLETED DATE/TIME: 11/30/2018 3:01 pm; 11/30/2018 3:05 pm REASON FOR STUDY: back pain, left leg numbness COMPARISON: CT chest 08/12/2018 on [facility] CT angio chest 09/27/2018, [facility] TECHNIQUE: CT scan of the chest performed without intravenous contrast using helical scanning techni que. Images reviewed with lung, soft tissue and bone windows. Reconstructed coronal and sagittal MPR images reviewed. All images stored on PACS. CT scan of the abdomen and pelvis performed without intravenous contrast and withoutoral contrast usi ng helical scanning technique with dynamic intravenous contrast injection. Images reviewed with lung , soft tissue and bone windows. Reconstructed coronal and sagittal MPR images reviewed. All images stored on PACS. All CT scanners at this facility use dose modulation, iterative reconstruction, and/or weight based d osing when appropriate to reduce radiation dose to as low as reasonably achievable (ALARA). [facility]: Dose Right [facility]: CareDose [facility]: Dose Right [facility]: Teradose 4D [facility]: Smart Technologies RADIATION DOSE: CT Rad equipment meets quality standard of care and radiation dose reduction techniq ues were employed. CTDIvol: 5.0 mGy. DLP: 359 mGy-cm. mGy. LIMITATIONS: No technical limitations. FINDINGS: CHEST: AXILLAE: No adenopathy. CHEST WALL: No masses. No subcutaneous air. LUNGS and PLEURA: Chronic post therapeutic changes on the left side, with an old left upper lobectomy , radiation therapy treatment with fibrosis and bronchiectasis in the left perihilar and lower lobe r egion and stable left pleural thickening. Right lung hyperinflated and hyperlucent but clear. No ri ght pleural effusion. No right or left pneumothorax. THYROID: No masses or significant asymmetry. HILAR AND MEDIASTINAL STRUCTURES: No identified masses or abnormal nodes. AORTA AND GREAT VESSELS: No aneurysm. HEART: No pericardial effusion. HARDWARE AND LIFELINES: None. BONES: No significant finding. OTHER: No other significant finding. ABDOMEN AND PELVIS: LIVER: Multiple liver masses are present worrisome for metastatic disease, the largest is 6 cm diamet er right lobe liver. SPLEEN: Normal size. No focal lesions. PANCREAS: No masses. No significant calcifications. No adjacent inflammation or peripancreatic flui d collections. Pancreatic duct not dilated. GALLBLADDER: No identified stones by CT criteria. No inflammatory changes to suggest cholecystitis. ADRENAL GLANDS: No significant masses or asymmetry. RIGHT KIDNEY AND URETER: No solid masses. Assessment limited by lack of IV contrast. Less than 5 mm right upper and lower pole intrarenal stones. 4 cm right lower pole renal cortical cyst No hydron ephrosis or hydroureter. LEFT KIDNEY AND URETER: No solid masses. Assessment limited by lack of IV contrast. No significant calcifications. No hydronephrosis or hydroureter. AORTA AND VESSELS: No aneurysm. RETROPERITONEUM: No retroperitoneal adenopathy, hemorrhage or masses. APPENDIX: Normal. LARGE AND SMALL BOWEL: No dilatation. No masses. No wall thickening. ABDOMINAL WALL: No hernia or masses. PERITONEAL CAVITY: No free air. No free fluid. No peritoneal implants or masses. PELVIS: No mass or free fluid. Normal bladder. BONES: No significant or acute findings. OTHER: No other significant finding. IMPRESSION: Old post therapeutic changes left hemithorax from treatment lung cancer, stable. Multiple liver masses are now present worrisome for metastatic disease. TECHNICAL DOCUMENTATION: JOB ID: [id number] Quality ID # 436: Final reports with documentation of one or more dose reduction techniques (e.g., Au tomated exposure control, adjustment of the mA and/or kV according to patient size, use of iterative reconstruction technique) 2010 [employer]- All Rights Reserved Reading location - IP/workstation name: [email or web address]
--- NOTE | 2018-11-30 15:28 | RADIOLOGY REPORT (SQ) ---
EXAM DESCRIPTION: CT CHEST WITHOUT; CT ABD/PELVIS NO ORAL OR IV COMPLETED DATE/TIME: 11/30/2018 3:01 pm; 11/30/2018 3:05 pm REASON FOR STUDY: back pain, left leg numbness COMPARISON: CT chest 08/12/2018 on [facility] CT angio chest 09/27/2018, [facility] TECHNIQUE: CT scan of the chest performed without intravenous contrast using helical scanning techni que. Images reviewed with lung, soft tissue and bone windows. Reconstructed coronal and sagittal MPR images reviewed. All images stored on PACS. CT scan of the abdomen and pelvis performed without intravenous contrast and withoutoral contrast usi ng helical scanning technique with dynamic intravenous contrast injection. Images reviewed with lung , soft tissue and bone windows. Reconstructed coronal and sagittal MPR images reviewed. All images stored on PACS. All CT scanners at this facility use dose modulation, iterative reconstruction, and/or weight based d osing when appropriate to reduce radiation dose to as low as reasonably achievable (ALARA). [facility]: Dose Right [facility]: CareDose [facility]: Dose Right [facility]: Teradose 4D [facility]: [employer] RADIATION DOSE: CT Rad equipment meets quality standard of care and radiation dose reduction techniq ues were employed. CTDIvol: 5.0 mGy. DLP: 359 mGy-cm. mGy. LIMITATIONS: No technical limitations. FINDINGS: CHEST: AXILLAE: No adenopathy. CHEST WALL: No masses. No subcutaneous air. LUNGS and PLEURA: Chronic post therapeutic changes on the left side, with an old left upper lobectomy , radiation therapy treatment with fibrosis and bronchiectasis in the left perihilar and lower lobe r egion and stable left pleural thickening. Right lung hyperinflated and hyperlucent but clear. No ri ght pleural effusion. No right or left pneumothorax. THYROID: No masses or significant asymmetry. HILAR AND MEDIASTINAL STRUCTURES: No identified masses or abnormal nodes. AORTA AND GREAT VESSELS: No aneurysm. HEART: No pericardial effusion. HARDWARE AND LIFELINES: None. BONES: No significant finding. OTHER: No other significant finding. ABDOMEN AND PELVIS: LIVER: Multiple liver masses are present worrisome for metastatic disease, the largest is 6 cm diamet er right lobe liver. SPLEEN: Normal size. No focal lesions. PANCREAS: No masses. No significant calcifications. No adjacent inflammation or peripancreatic flui d collections. Pancreatic duct not dilated. GALLBLADDER: No identified stones by CT criteria. No inflammatory changes to suggest cholecystitis. ADRENAL GLANDS: No significant masses or asymmetry. RIGHT KIDNEY AND URETER: No solid masses. Assessment limited by lack of IV contrast. Less than 5 mm right upper and lower pole intrarenal stones. 4 cm right lower pole renal cortical cyst No hydron ephrosis or hydroureter. LEFT KIDNEY AND URETER: No solid masses. Assessment limited by lack of IV contrast. No significant calcifications. No hydronephrosis or hydroureter. AORTA AND VESSELS: No aneurysm. RETROPERITONEUM: No retroperitoneal adenopathy, hemorrhage or masses. APPENDIX: Normal. LARGE AND SMALL BOWEL: No dilatation. No masses. No wall thickening. ABDOMINAL WALL: No hernia or masses. PERITONEAL CAVITY: No free air. No free fluid. No peritoneal implants or masses. PELVIS: No mass or free fluid. Normal bladder. BONES: No significant or acute findings. OTHER: No other significant finding. IMPRESSION: Old post therapeutic changes left hemithorax from treatment lung cancer, stable. Multiple liver masses are now present worrisome for metastatic disease. TECHNICAL DOCUMENTATION: JOB ID: [id number] Quality ID # 436: Final reports with documentation of one or more dose reduction techniques (e.g., Au tomated exposure control, adjustment of the mA and/or kV according to patient size, use of iterative reconstruction technique) 2010 [employer]- All Rights Reserved Reading location - IP/workstation name: [email or web address]
[2018-11-30] MEDS ORDERED: DEXAMETHASONE SOD PHOS INJ 10 MG/1 ML VIAL IV ONE (15:43)
[2018-11-30] MEDS ORDERED: LEVETIRACETAM 500 MG TABLET PO ONE (16:25)
[2018-11-30 18:35] VITALS: BP 156/80
== END 2018-11-30 18:41 | disposition home or self-care (01) ==
LOC: ER 10:34
DX: C34.90 Malignant neoplasm of unspecified part of unspecified bronchus or lung (principal); C78.7 Secondary malignant neoplasm of liver and intrahepatic bile duct; C79.31 Secondary malignant neoplasm of brain; R56.9 Unspecified convulsions; R25.1 Tremor, unspecified; M62.81 Muscle weakness (generalized); R42 Dizziness and giddiness; Z85.118 Personal history of other malignant neoplasm of bronchus and lung; Z87.891 Personal history of nicotine dependence
CPT/HCPCS: 99285; 96361; 96374; 36415; 83735; 84100; 85025; 80053; 70450; 71250; 74176; A9270; J7040; J1100

== ENCOUNTER → 2018-12-03 | Outpatient (CLI) | payer MEDICARE, OTHER ==
--- NOTE | 2018-12-04 17:29 | RADIOLOGY REPORT (SQ) ---
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 Images stored on PACS. CONTRAST TYPE AND DOSE: 10 mL Dotarem. RENAL FUNCTION: Not needed. LIMITATIONS: None. FINDINGS: ANATOMY: No anomalies. Normal vascular flow voids. Pituitary fossa normal. CSF SPACES: Mild generalized ventricular prominence. No extra-axial mass or hemorrhage or focal flui d. CEREBRUM: As seen on brain CT, there is a left parietal mass. This lesion measures up to 4.3 cm maxi cortney in the transverse plane. 4.3 cm craniocaudal. Predominantly hyperintense T2 internal cystic w ith areas of debris, septation and posterior more solid-appearing tissue. Minimal surrounding white matter edema. Multifocal white matter lesions otherwise, likely small vessel vasculopathy. No other enhancing foci. POSTERIOR FOSSA: No signal alteration. No hemorrhage. No edema, masses, or mass effect. Internal gaurav tory canals, cerebellopontine angles, mastoids normal. No enhancing lesions. No abnormal enhancement post contrast. DIFFUSION IMAGING: Negative for acute or subacute infarction. ORBITS: No masses. Globes normal. PARANASAL SINUSES: No fluid levels. Mucosa normal. OTHER: No other significant finding. IMPRESSION: 1. Largely cystic appearing mass in the brain, as seen on CT. Likely related to a solitary intracran ial metastatic focus. EVIDENCE OF ACUTE STROKE: NO. TECHNICAL DOCUMENTATION: JOB ID: [id number] [employer]- All Rights Reserved Reading location - IP/workstation name: [email or web address] [email or web address]
== END ==
LOC: RAD 17:05
PROVIDERS: ATTEND Radiology Radiation Oncology
DX: C79.31 Secondary malignant neoplasm of brain (principal)
CPT/HCPCS: 70553; A9576

== ENCOUNTER 2018-12-27 06:16 | Day surgery (SDC) | payer MEDICARE, OTHER ==
[~2018-12-27 06:16] MED LIST changes: +DIAZEPAM 5 MG TABLET PO SCH; -KETOROLAC TROMETHAMINE 0.45% 4 DROP/0.4 ML DROPERETTE OD PRN; +OXYCODONE-ACETAMINOPHEN 5-325 MG TABLET PO SCH
[2018-12-27 06:45] LABS: ABSOLUTE MONOCYTES (AUTO) 0.9 10^3/uL (0.1-1.4); BASOPHILS % (AUTO) 0.2 % (0-2); TOTAL CELLS COUNTED % (AUTO) 100 %
[2018-12-27 06:53] LABS: ABSOLUTE LYMPHOCYTES (AUTO) 0.9 10^3/uL (0.5-4.7); ABSOLUTE NEUT (AUTO) 9.4 10^3/uL (1.7-8.2); EOSINOPHILS % (AUTO) 0.2 % (0-6); HEMATOCRIT 39.7 % (37.9-51.0); HEMOGLOBIN 12.6 g/dL (13.5-17.0); LYMPHOCYTES % (AUTO) 7.8 % (13-45); MEAN CORPUSCULAR HEMOGLOBIN 25.9 pg (27.0-33.4); MEAN CORPUSCULAR HGB CONC 31.8 g/dL (32.0-36.0); PLATELET COUNT 330 10^3/uL (150-450); RED BLOOD COUNT 4.88 10^6/uL (4.35-5.55); RED CELL DISTRIBUTION WIDTH 22.6 % (11.5-14.0); SEGMENTED NEUTROPHILS % (AUTO) 83.8 % (42-78); WHITE BLOOD COUNT 11.2 10^3/uL (4.0-10.5)
[2018-12-27 07:10] LABS: ANION GAP 7 (5-19); BLOOD UREA NITROGEN 20 mg/dL (7-20); CALCIUM 8.8 mg/dL (8.4-10.2); CARBON DIOXIDE 29 mmol/L (22-30); CHLORIDE 102 mmol/L (98-107); GLUCOSE 79 mg/dL (75-110); POTASSIUM 4.5 mmol/L (3.6-5.0); SODIUM 138.4 mmol/L (137-145)
--- NOTE | 2018-12-27 07:14 | RADIOLOGY REPORT (SQ) ---
EXAM DESCRIPTION: XR CHEST 1 VIEW COMPLETED DATE/TME: 12/27/2018 06:23 CLINICAL HISTORY: 73 years Male, preop COMPARISON: 08/17/18, 08/15/18 NUMBER OF VIEWS/TECHNIQUE: 1/AP FINDINGS: Moderate chronic opacity-effusion of the left lower hemithorax. Moderate opacity of the left upper medial hemithorax. Moderate streaky opacity of the left midlung field. Small left lung volume. Moderate leftward cardiac shift-rotation. Hyperexpansion of the right lung. Intact bony thorax. Suture material at the left upper hemithorax. IMPRESSION: No significant interval change.
[2018-12-27 07:29] LABS: MEAN CORPUSCULAR VOLUME 82 fl (80-97)
[2018-12-27] MEDS ORDERED: DIAZEPAM 5 MG TABLET ONE (07:32)
[2018-12-27] MEDS ORDERED: OXYCODONE-ACETAMINOPHEN 5-325 MG TABLET ONE (07:32)
[2018-12-27] MEDS ORDERED: CEFAZOLIN 1 GM/D5W RTU 1 GM/50 ML RTUPB IV ONE (07:33)
[2018-12-27] MEDS ORDERED: MIDAZOLAM 2 MG/2 ML INJ ONE (08:08)
[2018-12-27] MEDS ORDERED: LIDOCAINE 0.5% INJ-PF (5 MG/ML) 50 ML SDV ONE (08:08)
[2018-12-27] MEDS ORDERED: FENTANYL CITRATE INJ/PF 100 MCG/2 ML AMPUL ONE (08:08)
[2018-12-27] MEDS ORDERED: BACITRACIN INJ 50,000 UNIT VIAL ONE (08:09)
--- NOTE | 2018-12-27 09:43 | Discharge Summary ---
Discharge Summary (SDC) - Discharge Final Diagnosis: #1 lung cancer. 2. Multiple comorbidities. Date of Surgery: 12/27/18 Discharge Date: 12/27/18 Condition: Poor Treatment or Instructions: Discharge home [after recovery per ASU criteria]. Diet , [renal],as tolerated, when fully awake advance as tolerated. Activities within moderation encouraged. Follow up in my office by appointment in about [1 week]. Call for appointment. Leave wounds [covered], [keep clean and dry, until office visit in 1 week]. Hold of on school/work [until evaluation in office]. Meds per med rec. May shower [in 48 hrs], [try to keep operated area as dry as possible]. Referrals: OLIVERIO TORRES MD [Primary Care Provider] - Discharge Diet: As Tolerated Respiratory Treatments at Home: Deep Breathing/Coughing Discharge Activity: Activity As Tolerated Report the Following to Your Physician Immediately: Shortness of Breath, Unusual Bleeding
--- NOTE | 2018-12-27 09:46 | Operative Report ---
Operative Report DATE OF SURGERY: 12/27/18 PREOPERATIVE DIAGNOSIS: #1 lung cancer. 2. Multiple comorbidities. POSTOPERATIVE DIAGNOSIS: #1 lung cancer. 2. Multiple comorbidities. OPERATION: 1. Ultrasound evaluation and real-time access of the right internal jugular vein. 2. Port-A-Cath insertion via real-time access in the right internal jugular vein. 3. Angiogram and interpretation. SURGEON: JANNET DAY SERVICE ADMINISTRATOR: None. ANESTHESIA: Moderate Sedation TISSUE REMOVED OR ALTERED: Not applicable. COMPLICATIONS: None. ESTIMATED BLOOD LOSS: 5 mL. INTRAOPERATIVE FINDINGS: Satisfactory right internal jugular vein to support catheter. Satisfactory access. Catheter positioned at about the junction of the superior vena cava in the right atrium. Easy egress of blood and ingress of heparinized solution. Angiogram demonstrated smooth flow of contrast through the catheter, superior vena cava, right atrium and pulmonary outflow tract. PROCEDURE: After obtaining informed consent, the patient was taken to the [facility] and positioned supine. The [right] neck and chest were prepared with chlorhexidine and draped out with sterile linen. After the " universal timeout", in which it was verified that the patient continued to receive antibiotic, the procedure commenced. A steriley sheathed ultrasound probe was used to evaluate the [right] internal jugular vein. Local anesthesia was infiltrated adjacent to the probe. Access into the [right] internal jugular vein was obtained using a micropuncture needle, followed by micropuncture wire and then a micropuncture catheter. This was followed by introduction of a 0.035 guidewire the tip of which was placed down into the inferior vena cava . The port sites was marked , locally anesthetized and incision made. Dissection now proceeded to the deep subcutaneous subcutaneous tissues so that a pocket for the port was made. Meticulous hemostasis was secured and the catheter was tunneled between the 2 incisions. Proximally, the catheter was now positioned using a peel-away sheath. Distally the catheter was tailored to an appropriate length and then mated to the port using the contained fixating device. The port was now placed in the pocket and the catheter optimally positioned. The port was accessed with a Jiménez needle and an angiogram done under digital subtraction. The findings as dictated. With adequate and satisfactory positioning, the lumen of the chamber were irrigated with heparinized solution. The wounds were now closed using interrupted 3-0 PDS to the subcutaneous tissues and a continuous subcuticular suture of 4-0 Monocryl to the skin. These are reinforced with Steri-Strips over benzoin and then dressings applied. Time: 0.7 minute. Dose: 4.87 m Gy Contrast: 10 Mls. Isovue 300. Copies of the dictated operative report for Dr. Jannet Salomon MD.
[2018-12-27 11:44] VITALS: BP 126/68
--- NOTE | 2018-12-27 12:00 | RADIOLOGY REPORT (SQ) ---
EXAM DESCRIPTION: PORTACATH INSERTION COMPLETED DATE/TIME: 12/27/2018 9:25 am REASON FOR STUDY: C34.90 LUNG CA C34.90 MALIGNANT NEOPLASM OF UNSP PART OF UNSP BRONCHUS OR L Z79.8 99 OTHER [facility] (CURRENT) DRUG THERAPY COMPARISON: None. FLUOROSCOPY TIME: 0.7 minutes. 48 images saved to PACS. TECHNIQUE: Intra-operative images acquired during surgical procedure to evaluate progress. NUMBER OF IMAGES: 48 images. LIMITATIONS: None. FINDINGS: Images of the chest acquired during port placement. IMPRESSION: IMAGE(S) OBTAINED DURING PROCEDURE. COMMENT: Quality ID 145: Final reports for procedures using fluoroscopy that document radiation exp osure indices, or exposure time and number of fluorographic images (if radiation exposure indices are not available) Please consult full operative report of the attending physician for description of the procedure. TECHNICAL DOCUMENTATION: JOB ID: [id number] [employer]- All Rights Reserved Reading location - IP/workstation name: [email or web address]
== END 2018-12-27 10:50 | disposition home or self-care (01) ==
LOC: CCL 06:16
PROVIDERS: ATTEND Surgery
DX: C34.90 Malignant neoplasm of unspecified part of unspecified bronchus or lung (principal); R51 Headache; R09.89 Other specified symptoms and signs involving the circulatory and respiratory systems; R41.3 Other amnesia; Z87.891 Personal history of nicotine dependence; Z79.891 Long term (current) use of opiate analgesic; Z79.899 Other long term (current) drug therapy; Z01.818 Encounter for other preprocedural examination
CPT/HCPCS: 36415; 85025; 80048; 36561; 76937; 77001; 71045; C1752; C1788; Q9967; J2250; J3490 ×2; J0690; A9270 ×2; J3010; J1644

== ENCOUNTER 2018-12-29 09:10 | Outpatient (CLI) | payer MEDICARE, OTHER ==
[~2018-12-29 09:10] MED LIST changes: +CARBOPLATIN IV PRN; +DEXAMETHASONE 10 MG in NS 50 ML IV PRN; -DIAZEPAM 5 MG TABLET PO SCH; +ETOPOSIDE IV PRN; +NORMAL SALINE 250 ML @ KVO IV PRN; +NORMAL SALINE IV PRN; -OXYCODONE-ACETAMINOPHEN 5-325 MG TABLET PO SCH; +PALONOSETRON 0.25 MG/5 ML VIAL IV PRN
[2018-12-29 10:05] VITALS: BP 96/61
== END 2018-12-29 12:56 | disposition home or self-care (01) ==
LOC: II 09:10 → 5TH 09:12 → II 12:56
PROVIDERS: ATTEND Internal Medicine Hematology & Oncology
PROC: 3E03305 Introduction of Other Antineoplastic into Peripheral Vein, Percutaneous Approach (ICD-10-PCS; principal; 2018-12-29)
PROC: 3E0333Z Introduction of Anti-inflammatory into Peripheral Vein, Percutaneous Approach (ICD-10-PCS; 2018-12-29)
PROC: 3E033GC Introduction of Other Therapeutic Substance into Peripheral Vein, Percutaneous Approach (ICD-10-PCS; 2018-12-29)
DX: Z51.11 Encounter for antineoplastic chemotherapy (principal); C34.90 Malignant neoplasm of unspecified part of unspecified bronchus or lung
CPT/HCPCS: 96413; 96367; 96375; 96417; J9045; J9181; J7050; J7040; J1100; J2469; 96365; 96374; 96415

== ENCOUNTER 2018-12-30 09:31 | Outpatient (CLI) | payer MEDICARE, OTHER ==
[~2018-12-30 09:31] MED LIST changes: -CARBOPLATIN IV PRN; -PALONOSETRON 0.25 MG/5 ML VIAL IV PRN
[2018-12-30 10:04] VITALS: BP 117/56
== END 2018-12-30 13:00 | disposition home or self-care (01) ==
LOC: II 09:31 → 5TH 09:33 → II 13:00
PROVIDERS: ATTEND Internal Medicine Hematology & Oncology
PROC: 3E03305 Introduction of Other Antineoplastic into Peripheral Vein, Percutaneous Approach (ICD-10-PCS; principal; 2018-12-30)
PROC: 3E0433Z Introduction of Anti-inflammatory into Central Vein, Percutaneous Approach (ICD-10-PCS; 2018-12-30)
DX: Z51.11 Encounter for antineoplastic chemotherapy (principal); C34.90 Malignant neoplasm of unspecified part of unspecified bronchus or lung
CPT/HCPCS: 96413; 96367; J9181; J7040; J1100; 96365

== ENCOUNTER 2019-01-19 08:16 | Outpatient (CLI) | payer MEDICARE, OTHER ==
[~2019-01-19 08:16] MED LIST changes: +CARBOPLATIN IV PRN; +PALONOSETRON 0.25 MG/5 ML VIAL IV PRN
[2019-01-19 08:41] VITALS: BP 97/62
== END 2019-01-19 11:47 | disposition home or self-care (01) ==
LOC: II 08:16 → 5TH 08:18 → II 11:47
PROVIDERS: ATTEND Internal Medicine Hematology & Oncology
PROC: 3E04305 Introduction of Other Antineoplastic into Central Vein, Percutaneous Approach (ICD-10-PCS; principal; 2019-01-19)
PROC: 3E0433Z Introduction of Anti-inflammatory into Central Vein, Percutaneous Approach (ICD-10-PCS; 2019-01-19)
PROC: 3E043GC Introduction of Other Therapeutic Substance into Central Vein, Percutaneous Approach (ICD-10-PCS; 2019-01-19)
DX: Z51.11 Encounter for antineoplastic chemotherapy (principal); C34.90 Malignant neoplasm of unspecified part of unspecified bronchus or lung; C79.31 Secondary malignant neoplasm of brain
CPT/HCPCS: 96413; 96415; 96367; 96375; 96417; J9045; J9181; J7050; J7040; J1100; J1642; J2469; 96365; 96374

== ENCOUNTER 2019-01-20 08:19 | Outpatient (CLI) | payer MEDICARE, OTHER ==
[~2019-01-20 08:19] MED LIST changes: -CARBOPLATIN IV PRN; -PALONOSETRON 0.25 MG/5 ML VIAL IV PRN
[2019-01-20 08:44] VITALS: BP 110/65
== END 2019-01-20 10:15 | disposition home or self-care (01) ==
LOC: 5TH 08:19 → II 08:19
PROVIDERS: ATTEND Internal Medicine Hematology & Oncology
PROC: 3E04305 Introduction of Other Antineoplastic into Central Vein, Percutaneous Approach (ICD-10-PCS; principal; 2019-01-20)
PROC: 3E0433Z Introduction of Anti-inflammatory into Central Vein, Percutaneous Approach (ICD-10-PCS; 2019-01-20)
DX: Z51.11 Encounter for antineoplastic chemotherapy (principal); C34.90 Malignant neoplasm of unspecified part of unspecified bronchus or lung; C79.31 Secondary malignant neoplasm of brain
CPT/HCPCS: 96413; 96367; J9181; J7040; J1100; J1642; 96365

== ENCOUNTER 2019-01-21 08:13 | Outpatient (CLI) | payer MEDICARE, OTHER ==
[2019-01-21 08:40] VITALS: BP 93/59
== END 2019-01-21 11:15 | disposition home or self-care (01) ==
LOC: II 08:13 → 5TH 08:15 → II 11:15
PROVIDERS: ATTEND Internal Medicine Hematology & Oncology
PROC: 3E04305 Introduction of Other Antineoplastic into Central Vein, Percutaneous Approach (ICD-10-PCS; principal; 2019-01-21)
PROC: 3E0433Z Introduction of Anti-inflammatory into Central Vein, Percutaneous Approach (ICD-10-PCS; 2019-01-21)
DX: Z51.11 Encounter for antineoplastic chemotherapy (principal); C34.90 Malignant neoplasm of unspecified part of unspecified bronchus or lung; C79.31 Secondary malignant neoplasm of brain
CPT/HCPCS: 96413; 96367; J9181; J7040; J1100; J1642; 96365

== ENCOUNTER 2019-02-27 05:19 | Inpatient (IN) | payer MEDICARE, OTHER ==
[2019-02-27] MEDS ORDERED: LEVALBUTEROL HCL NEB 1.25 MG/3 ML AMPUL NEB ONE (05:44)
[2019-02-27 06:20] LABS: VENOUS BLOOD BASE EXCESS 9.1 mmol/L; VENOUS BLOOD HCO3 34.4 mmol/L (20-32); VENOUS BLOOD PCO2 50.3 mmHg (35-63); VENOUS BLOOD PH 7.45 (7.30-7.42)
[2019-02-27 06:24] LABS: HEMOGLOBIN 11.1 g/dL (13.5-17.0); MEAN CORPUSCULAR HEMOGLOBIN 27.7 pg (27.0-33.4); MEAN CORPUSCULAR HGB CONC 32.5 g/dL (32.0-36.0); MEAN CORPUSCULAR VOLUME 85 fl (80-97); PLATELET COUNT 359 10^3/uL (150-450); RED BLOOD COUNT 3.99 10^6/uL (4.35-5.55); RED CELL DISTRIBUTION WIDTH 17.2 % (11.5-14.0); WHITE BLOOD COUNT 12.6 10^3/uL (4.0-10.5)
--- NOTE | 2019-02-27 06:35 | RADIOLOGY REPORT (SQ) ---
EXAM DESCRIPTION: XR CHEST 1 VIEW COMPLETED DATE/TME: 02/27/2019 05:43 CLINICAL HISTORY: 73 years, Male, SOB COMPARISON: 12/27/2018 chest NUMBER OF VIEWS: 1 TECHNIQUE: Portable chest LIMITATIONS: None. FINDINGS: Postsurgical changes and volume loss of the left hemithorax. Ddmvdf-l-Obeo catheter with the tip in the cavoatrial junction. Hyperinflation of the right hemithorax. No pneumothorax. Osteopenia. Chronic pleural and parenchymal changes of the left hemithorax IMPRESSION: Interval placement of an Jhmyxl-n-Fylj catheter. Other findings of the chest are stable copyright 2010 [employer]- All Rights Reserved
[2019-02-27 06:43] LABS: ALBUMIN 3.1 g/dL (3.5-5.0); ALKALINE PHOSPHATASE 508 U/L (38-126); ANION GAP 7 (5-19); ASPARTATE AMINO TRANSFERASE 102 U/L (17-59); BILIRUBIN,DIRECT 0.5 mg/dL (0.0-0.4); BILIRUBIN,TOTAL 0.6 mg/dL (0.2-1.3); BLOOD UREA NITROGEN 17 mg/dL (7-20); CALCIUM 8.9 mg/dL (8.4-10.2); CARBON DIOXIDE 38 mmol/L (22-30); CHLORIDE 94 mmol/L (98-107); GLUCOSE 111 mg/dL (75-110); TOTAL PROTEIN 5.7 g/dL (6.3-8.2)
[2019-02-27 06:51] LABS: POTASSIUM 2.7 mmol/L (3.6-5.0)
[2019-02-27 06:57] LABS: ABSOLUTE LYMPHOCYTES# (MANUAL) 0.3 10^3/uL (0.5-4.7); ABSOLUTE MONOCYTES # (MANUAL) 0.6 10^3/uL (0.1-1.4); BAND NEUTROPHILS % (MANUAL) 1 % (3-5); BASOPHILS % (MANUAL) 0 % (0-2); EOSINOPHILS % (MANUAL) 0 % (0-6); LYMPHOCYTES % (MANUAL) 1 % (13-45); MONOCYTES % (MANUAL) 5 % (3-13); SEGMENTED NEUTROPHILS % (MAN) 92 % (42-78); TOTAL CELLS COUNTED 100
[2019-02-27 06:58] LABS: ANISOCYTOSIS 1+; HYPOCHROMASIA 2+; PLATELET COMMENT ADEQUATE; POIKILOCYTOSIS 1+; STOMATOCYTES 1+
[2019-02-27] MEDS ORDERED: NORMAL SALINE 1000 ML 1,000 ML IV ONE (07:42)
[2019-02-27] MEDS ORDERED: POTASSI CL 40 MEQ/D5-1/2NS 1L 40 MEQ/1,000 ML RTUINJ IV ONE (07:42)
[2019-02-27] MEDS ORDERED: LEVOFLOXACIN 750 MG/D5W RTU 750 MG/150 ML RTUPB IV ONE (07:43)
[2019-02-27] MEDS ORDERED: POTASSIUM CHLORIDE 20 MEQ PACKET PO ONE (07:49)
--- NOTE | 2019-02-27 07:49 | ER Document Report ---
ED General - General Chief Complaint: Shortness Of Breath Stated Complaint: WHEEZING,DIFFICULTY BREATHING Time Seen by Provider: 02/27/19 06:52 Primary Care Provider: ALCON ROSAS MD [Primary Care Provider] - Follow up as needed TRAVEL OUTSIDE OF THE [place] IN LAST 30 DAYS: No - HPI Notes: Patient is a 73-year-old male who presents to the emergency department for evaluation of confusion and cough. His is the primary historian. Patient currently has stage IV lung cancer. He is awaiting the start of immunotherapy, apparently did not respond to chemotherapy on his last round. Patient's states he has had a cough going on for the last several days. Is been int ermittently productive. The patient states he feels short of breath. This morning the patient's found him to be very confused. He took his medications early. He was not making sense. She checked his oxygen and it was found to be in the mid 80s, so she called EMS to bring her to the hospital for further evaluation. Patient's notes that he used to be on home oxygen but this was removed several weeks ago because he was doing so well. There is also been a recent reduction in his medications, including taking away his potassium supplementation. The patient denies any significant pain out of the ordinary. No nausea or vomiting. No fevers at home to their knowledge. - Related Data Allergies/Adverse Reactions: Penicillins Allergy (Severe, Verified 02/27/19 05:30) shock clarithromycin Allergy (Verified 02/27/19 05:30) fluconazole [From Diflucan] Allergy (Verified 02/27/19 05:30) Tachycardia indomethacin [From Indocin] Allergy (Verified 02/27/19 05:30) Migraine meperidine [From Demerol] Allergy (Verified 02/27/19 05:30) Syncope pseudoephedrine [From Sudafed] Allergy (Verified 02/27/19 05:30) tremor zolpidem [From Ambien] Allergy (Verified 02/27/19 05:30) Past Medical History - General Information source: Patient, Relative - Social History Smoking Status: Former Smoker Family History: Reviewed & Not Pertinent Patient has suicidal ideation: No Patient has homicidal ideation: No - Past Medical History Cardiac Medical History: Denies: Hx Coronary Artery Disease, Hx Heart Attack, Hx Hypertension Pulmonary Medical History: Reports: Hx Asthma, Hx COPD, Hx Pneumonia Denies: Hx Bronchitis Neurological Medical History: Denies: Hx Cerebrovascular Accident, Hx Seizures Renal/ Medical History: Denies: Hx Peritoneal Dialysis Malignancy Medical History: Reports Hx Lung Cancer GI Medical History: Denies: Hx Hepatitis, Hx Hiatal Hernia, Hx Ulcer Musculoskeletal Medical History: Denies Hx Arthritis Infectious Medical History: Denies: Hx Hepatitis Past Surgical History: Reports: Other - Patient has 2 back surgeries left-sided partial lung resection. Denies: Hx Open Heart Surgery, Hx Pacemaker Review of Systems - Review of Systems Constitutional: See HPI EENT: No symptoms reported Cardiovascular: No symptoms reported Respiratory: See HPI Gastrointestinal: No symptoms reported Genitourinary: No symptoms reported Musculoskeletal: No symptoms reported Skin: No symptoms reported Neurological/Psychological: See HPI Physical Exam - Vital signs Vitals: Temp Pulse Resp BP Pulse Ox 97.8 F 93 12 143/85 H 89 L 02/27/19 05:26 02/27/19 05:26 02/27/19 05:26 02/27/19 05:26 02/27/19 05:26 - Notes Notes: This is an extremely cachectic appearing 73-year-old male, appears his stated age, no acute distress. Is resting in the bed comfortably, oxygen per nasal cannula in place. Head is normocephalic and atraumatic. Pupils are equal round, reactive to light. Oral mucosa is moist. Heart is regular rate and rhythm. Lungs show diminished breath sounds with expiratory wheezes throughout. Port is accessed in the right chest without active bleeding. Abdomen is soft and nontender, no active bowel sounds. Skin is warm and dry. Calves nontender. No cyanosis. Patient is awake and alert, oriented x3. No gross facial asymmetry. Moves all 4 extremities spontaneously. Course - Re-evaluation Re-evalutation: 02/27/19 07:47 Patient presents to the emergency department for evaluation of cough and altered mental status. On oxygen here, at the time of my exam, the patient is alert and oriented. My suspicion is he was confused because he was being poorly oxygenated. On arrival his heart rate was in the 90s. He has an elevated white blood cell count. His lactate is markedly elevated as well. Chest x-ray was normal, but I do suspect a developing pneumonia, particularly given his cough and hypoxia, with reports that he had been doing so well off of oxygen at home. He is covered here with Levaquin. His potassium is found to be markedly low as well. IV fluid potassium replacement ordered, as well as oral replacement. Patient does currently meet sepsis criteria with the suspected pneumonia. He is given a bolus of fluids, and with the addition of the potassium containing fluids will receive 30 cc/kg of his fluids as ordered. Will contact medicine for potential admission. 02/27/19 08:13 Spoke with physician laboratory chemical assistant Cailin, he agrees with admission, and will accept the patient for further care. - Vital Signs Vital signs: Temp Pulse Resp BP Pulse Ox 97.8 F 93 15 140/78 H 91 L 02/27/19 05:26 02/27/19 05:26 02/27/19 07:01 02/27/19 07:01 02/27/19 07:01 - Laboratory Result Diagrams: 02/27/19 05:45 02/27/19 05:45 Laboratory results interpreted by me: 02/27/19 02/27/19 02/27/19 05:45 05:45 06:10 WBC 12.6 H RBC 3.99 L Hgb 11.1 L Hct 34.0 L RDW 17.2 H Seg Neuts % (Manual) 92 H Band Neutrophils % 1 L Lymphocytes % (Manual) 1 L Abs Neuts (Manual) 11.7 H Abs Lymphs (Manual) 0.3 L VBG pH 7.45 H VBG HCO3 34.4 H Potassium 2.7 L* Chloride 94 L Carbon Dioxide 38 H Glucose 111 H Lactic Acid Direct Bilirubin 0.5 H AST 102 H Alkaline Phosphatase 508 H Total Protein 5.7 L Albumin 3.1 L 02/27/19 06:10 WBC RBC Hgb Hct RDW Seg Neuts % (Manual) Band Neutrophils % Lymphocytes % (Manual) Abs Neuts (Manual) Abs Lymphs (Manual) VBG pH VBG HCO3 Potassium Chloride Carbon Dioxide Glucose Lactic Acid 4.3 H Direct Bilirubin AST Alkaline Phosphatase Total Protein Albumin - Diagnostic Test Radiology reviewed: Reports reviewed Radiology results interpreted by me: 02/27/19 07:47 Chest X-Ray 02/27/19 05:43 IMPRESSION: Interval placement of an Hopoor-a-Ziaa catheter. Other findings of the chest are stable copyright 2011 [employer]- All Rights Reserved Discharge - Discharge Clinical Impression: Hypoxia, Sepsis, Hypokalemia COPD (chronic obstructive pulmonary disease) Qualifiers: COPD type: COPD with acute exacerbation Qualified Code(s): J44.1 - Chronic obstructive pulmonary disease with (acute) exacerbation Condition: Stable Disposition: ADMITTED INPATIENT Admitting Provider: [facility] Admitted: Telemetry Referrals: ALCON ROSAS MD [Primary Care Provider] - Follow up as needed
--- NOTE | 2019-02-27 09:15 | EKG REPORT ---
SEVERITY:- NORMAL ECG - SINUS RHYTHM : Confirmed by: Derrick Norris MD 27-Feb-2019 09:15:03
[2019-02-27] MEDS ORDERED: ACETAMINOPHEN 325 MG TABLET PO PRN (09:36)
[2019-02-27] MEDS ORDERED: IPRATROPIUM/ALBUTEROL 0.5-2.5 MG/3 ML AMPUL NEB PRN (09:36)
[2019-02-27] MEDS ORDERED: LEVALBUTEROL HCL NEB 1.25 MG/3 ML AMPUL NEB PRN (09:45)
[2019-02-27] MEDS: LEVOFLOXACIN 750 MG/D5W RTU 750 MG/150 ML RTUPB IV SCH (11:26)
[2019-02-27] MEDS: 1/2 NORMAL SALINE 1,000 ML IV PRN ×2 (11:29→19:49)
[2019-02-27] MEDS: ENOXAPARIN SODIUM INJ 40 MG/0.4 ML DISP.SYRIN SUBCUT SCH (11:30)
[2019-02-27] MEDS: GUAIFENESIN 600 MG TABLET.SA PO SCH ×2 (11:30→21:39)
[2019-02-27] MEDS: FAMOTIDINE 20 MG TABLET PO SCH ×2 (11:30→21:39)
[2019-02-27] MEDS: POTASSI CL 20 MEQ/50 ML RIDER 20 MEQ/50 ML RTUPB IV SCH ×2 (11:31→12:53)
[2019-02-27 11:32] LABS: APPEARANCE,URINE SLIGHTLY-CLOUDY; BILIRUBIN,URINE NEGATIVE (NEGATIVE); COLOR,URINE YELLOW; GLUCOSE, URINE NEGATIVE (NEGATIVE); KETONES,URINE NEGATIVE (NEGATIVE); LEUKOCYTE ESTERASE,URINE NEGATIVE (NEGATIVE); NITRITE,URINE NEGATIVE (NEGATIVE); PROTEIN,URINE 30 mg/dL (NEGATIVE); URINE SPECIFIC GRAVITY 1.021
[2019-02-27] MEDS ORDERED: METHADONE HCL 10 MG TABLET PO SCH (12:00)
--- NOTE | 2019-02-27 13:19 | PDOC CONSULTATION ---
Consultation Consult Date: 02/27/19 Attending physician:: NIEVES QUINN Provider Consulted: BRANDT JARRETT Consult reason:: Stage IV lung ca w/ recent progression, here w/ cough/SOB/confusion History of Present Illness Admission Date/PCP: 02/27/19 08:27 ALCON ROSAS MD Patient complains of: Cough/SOB/Confusion History of Present Illness: ESTEBAN CHOI is a 73 year old male well known to our practice with stage IV lung ca, was on chemotherapy previously but unfortunately CT imaging done 2 wks ago indicated increasing size and number of multiple liver lesions, also CT chest indicated opacity in the lung that radiology felt was radiation changes, he completed xrt in 11/2018 and has been on carboplatin/etoposide, last cycle about 3 wks ago but with recent progression is planned to start immunotherapy soon, also has brain metastasis. He was having inc SOB/BHANDARI, O2 sat worsened at home, also became confused, pt was brought to ED, fit criteria for sepsis and felt to have pneumonia so on IV atbx now. Past Medical History Cardiac Medical History: Denies: Coronary Artery Disease, Myocardial Infarction, Hypertension Pulmonary Medical History: Reports: Asthma, Chronic Obstructive Pulmonary Disease (COPD), Pneumonia Denies: Bronchitis Neurological Medical History: Denies: Seizures Malignancy Medical History: Reports: Lung Cancer GI Medical History: Denies: Hepatitis, Hiatal Hernia Musculoskeltal Medical History: Denies: Arthritis Hematology: Reports: Anemia Denies: Sickle Cell Disease Past Surgical History Past Surgical History: Reports: Other - Patient has 2 back surgeries left-sided partial lung resection Denies: Pacemaker Social History Information Source: Patient Lives with: Family Smoking Status: Former Smoker Cigarettes Packs Per Day: 2 Cigars Per Day: 0 Pipes Per Day: 0 Number of Years Smokin Last Time Smoked: 07/20/2015 Frequency of Alcohol Use: None Hx Recreational Drug Use: No Drugs: None Hx Prescription Drug Abuse: No - Advance Directive Resuscitation Status: Do Not Resuscitate Family History Family History: Reviewed & Not Pertinent Parental Family History Reviewed: Yes Children Family History Reviewed: Yes Sibling(s) Family History Reviewed.: Yes Medication/Allergy Home Medications: Clonazepam [Klonopin] 0.5 mg PO QHS 02/27/19 Dexamethasone [Decadron 4 mg Tablet] 4 mg PO DAILY 02/27/19 Docusate Sodium [Colace 100 mg Capsule] 100 mg PO TID 02/27/19 Ergocalciferol (Vitamin D2) [Drisdol 50,000 unit (1.25MG) Capsule] 50,000 unit PO SALAS@2200 02/27/19 Finasteride [Proscar 5 mg Tablet] 5 mg PO DAILY 02/27/19 Levalbuterol HCl [Xopenex Neb 0.63 mg/3 ml Ampul] 3 ml NEB Q6HP PRN 02/27/19 Methadone HCl [Dolophine HCl] 5 mg PO Q12 02/27/19 Ondansetron HCl [Zofran 8 mg Tablet] 8 mg PO Q8HP PRN 02/27/19 Polyethylene Glycol 3350 [Miralax Powder 17 gm/Packet] 17 gm PO DAILYP PRN 02/27/19 Ranitidine HCl [Zantac 75] 75 mg PO DAILY 02/27/19 Sertraline HCl [Zoloft 50 mg Tablet] 50 mg PO DAILY 02/27/19 Tamsulosin HCl [Flomax 0.4 mg Cap.sr] 0.8 mg PO DAILY 02/27/19 Umeclidinium Brm/Vilanterol Tr [Anoro Ellipta 62.5-25 Mcg INH] 1 puff IH DAILY 02/27/19 Allergies/Adverse Reactions: Penicillins Allergy (Severe, Verified 02/27/19 05:30) shock clarithromycin Allergy (Verified 02/27/19 05:30) fluconazole [From Diflucan] Allergy (Verified 02/27/19 05:30) Tachycardia indomethacin [From Indocin] Allergy (Verified 02/27/19 05:30) Migraine meperidine [From Demerol] Allergy (Verified 02/27/19 05:30) Syncope pseudoephedrine [From Sudafed] Allergy (Verified 02/27/19 05:30) tremor zolpidem [From Ambien] Allergy (Verified 02/27/19 05:30) acetaminophen [From Fioricet] Adverse Reaction (Verified 02/27/19 12:24) butalbital [From Fioricet] Adverse Reaction (Verified 02/27/19 12:24) caffeine [From Fioricet] Adverse Reaction (Verified 02/27/19 12:25) Review of Systems Constitutional: ABSENT: chills, fever(s), headache(s), weight gain, weight loss Eyes: ABSENT: visual disturbances Ears: ABSENT: hearing changes Cardiovascular: ABSENT: chest pain, dyspnea on exertion, edema, orthropnea, palpitations Respiratory: ABSENT: cough, hemoptysis Gastrointestinal: ABSENT: abdominal pain, constipation, diarrhea, hematemesis, hematochezia, nausea, vomiting Genitourinary: ABSENT: dysuria, hematuria Musculoskeletal: ABSENT: joint swelling Integumentary: ABSENT: rash, wounds Neurological: ABSENT: abnormal gait, abnormal speech, confusion, dizziness, focal weakness, syncope Psychiatric: ABSENT: anxiety, depression, homidical ideation, suicidal ideation Endocrine: ABSENT: cold intolerance, heat intolerance, polydipsia, polyuria Hematologic/Lymphatic: ABSENT: easy bleeding, easy bruising Physical Exam Vital Signs: Temp Pulse Resp BP Pulse Ox 98.6 F 81 12 147/73 H 93 02/27/19 12:03 02/27/19 12:03 02/27/19 12:03 02/27/19 12:03 02/27/19 12:03 Intake & Output 02/26/19 02/27/19 02/28/19 06:59 06:59 06:59 Intake Total 150 Balance 150 Weight 55.6 kg 59.9 kg General appearance: PRESENT: no acute distress, well-developed, well-nourished Head exam: PRESENT: atraumatic, normocephalic Eye exam: PRESENT: conjunctiva pink, EOMI, PERRLA. ABSENT: scleral icterus Ear exam: PRESENT: normal external ear exam Mouth exam: PRESENT: moist, tongue midline Neck exam: ABSENT: carotid bruit, JVD, lymphadenopathy, thyromegaly Respiratory exam: PRESENT: clear to auscultation rsoaura. ABSENT: rales, rhonchi, wheezes Cardiovascular exam: PRESENT: RRR. ABSENT: diastolic murmur, rubs, systolic murmur Pulses: PRESENT: normal dorsalis pedis pul Vascular exam: PRESENT: normal capillary refill GI/Abdominal exam: PRESENT: normal bowel sounds, soft. ABSENT: distended, guarding, mass, organolmegaly, rebound, tenderness Rectal exam: PRESENT: deferred Extremities exam: PRESENT: full ROM. ABSENT: calf tenderness, clubbing, pedal edema Neurological exam: PRESENT: alert, awake, oriented to person, oriented to place, oriented to time, oriented to situation, CN II-XII grossly intact. ABSENT: motor sensory deficit Psychiatric exam: PRESENT: appropriate affect, normal mood. ABSENT: homicidal ideation, suicidal ideation Skin exam: PRESENT: dry, intact, warm. ABSENT: cyanosis, rash Results Laboratory Results: 02/27/19 05:45 02/27/19 05:45 02/27/19 02/27/19 02/27/19 05:45 05:45 05:45 WBC 12.6 H RBC 3.99 L Hgb 11.1 L Hct 34.0 L MCV 85 MCH 27.7 MCHC 32.5 RDW 17.2 H Plt Count 359 Seg Neutrophils % Not Reportable Lymphocytes % Not Reportable Monocytes % Not Reportable Eosinophils % Not Reportable Basophils % Not Reportable Absolute Neutrophils Not Reportable Absolute Lymphocytes Not Reportable Absolute Monocytes Not Reportable Absolute Eosinophils Not Reportable Absolute Basophils Not Reportable VBG pH VBG pCO2 VBG HCO3 VBG Base Excess Sodium 138.5 Potassium 2.7 L* Chloride 94 L Carbon Dioxide 38 H Anion Gap 7 BUN 17 Creatinine 0.53 Est GFR ( Amer) > 60 Est GFR (Non-Af Amer) > 60 Glucose 111 H Lactic Acid Calcium 8.9 Magnesium 2.1 Total Bilirubin 0.6 AST 102 H Alkaline Phosphatase 508 H Total Protein 5.7 L Albumin 3.1 L Urine Color Urine Appearance Urine pH Ur Specific [place] Urine Protein Urine Glucose (UA) Urine Ketones Urine Blood Urine Nitrite Ur Leukocyte Esterase Urine WBC (Auto) Urine RBC (Auto) 02/27/19 02/27/19 02/27/19 06:10 06:10 11:14 WBC RBC Hgb Hct MCV MCH MCHC RDW Plt Count Seg Neutrophils % Lymphocytes % Monocytes % Eosinophils % Basophils % Absolute Neutrophils Absolute Lymphocytes Absolute Monocytes Absolute Eosinophils Absolute Basophils VBG pH 7.45 H VBG pCO2 50.3 VBG HCO3 34.4 H VBG Base Excess 9.1 Sodium Potassium Chloride Carbon Dioxide Anion Gap BUN Creatinine Est GFR ( Amer) Est GFR (Non-Af Amer) Glucose Lactic Acid 4.3 H Calcium Magnesium Total Bilirubin AST Alkaline Phosphatase Total Protein Albumin Urine Color YELLOW Urine Appearance SLIGHTLY-CLOUDY Urine pH 6.0 Ur Specific [place] 1.021 Urine Protein 30 H Urine Glucose (UA) NEGATIVE Urine Ketones NEGATIVE Urine Blood NEGATIVE Urine Nitrite NEGATIVE Ur Leukocyte Esterase NEGATIVE Urine WBC (Auto) 3 Urine RBC (Auto) 6 Impressions: Chest X-Ray 02/27/19 05:43 IMPRESSION: Interval placement of an Zrwbfc-f-Pwbl catheter. Other findings of the chest are stable copyright 2011 [employer]- All Rights Reserved Status: Image reviewed by me Assessment & Plan - Diagnosis (1) Sepsis Qualifiers: Sepsis type: sepsis due to unspecified organism Sepsis acute organ dysfunction status: without acute organ dysfunction Qualified Code(s): A41.9 - Sepsis, unspecified organism Is this a current diagnosis for this admission?: Yes Plan: Con't atbx, await cultures, probable source pneumonia (2) Acute respiratory failure Qualifiers: Respiratory failure complication: hypoxia Qualified Code(s): J96.01 - Acute respiratory failure with hypoxia Is this a current diagnosis for this admission?: Yes Plan: Probably worsed 2nd to pneumonia, should improve back to baseline w/ treatment (3) Pneumonia Qualifiers: Pneumonia type: due to unspecified organism Laterality: left Lung location: lower lobe of lung Qualified Code(s): J18.1 - Lobar pneumonia, unspecified organism Is this a current diagnosis for this admission?: Yes Plan: Con't levaquin (4) Lung cancer Qualifiers: Laterality: left Lung location: lower lobe of lung Qualified Code(s): C34.32 - Malignant neoplasm of lower lobe, left bronchus or lung Is this a current diagnosis for this admission?: Yes Plan: Stage IV lung ca w/ recent progression, planned for immunRx tomorrow but will put on hold until pneumonia improves (5) Confusion Is this a current diagnosis for this admission?: Yes Plan: probably 2nd to pneumonia/sepsis, if it doesn't improve over next 24-48 hrs will need repeat MRI brain - Time Time Spent: Greater than 70 Minutes - Inpatient Certification Based on my medical assessment, after consideration of the patient's comorbidities, presenting symptoms, or acuity I expect that the services needed warrant INPATIENT care.: Yes I certify that my determination is in accordance with my understanding of Medicare's requirements for reasonable and necessary INPATIENT services [42 CFR 412.3e].: Yes Medical Necessity: Need for Nebulizer Therapy and Monitoring of Response, Need for IV Antibiotics
--- NOTE | 2019-02-27 14:58 | Progress Note Acknowledgement ---
Progress Note Acknowledgement Progess Note Acknowledgement: I, the undersigned member of the medical staff with appropriate privileges and with supervisory authority over [ PAC ], a dependent practice allied health professional, acknowledge that I have reviewed the progress notes entered on this patient, and in my professional judgment believe that the assessment made and/or any care evidenced was appropriate
[2019-02-27] MEDS ORDERED: POLYETHYLENE GLYCOL 3350 POWDER 17 GM/1 PACKET PO PRN (15:38)
--- NOTE | 2019-02-27 16:22 | PDOC H&P ---
History of Present Illness Admission Date/PCP: 02/27/19 08:27 ALCON ROSAS MD 02/27/19 73-year-old male who came to the emergency room today complaining of confusion and cough according to the the patient has been coughing for the last 3 or 4 days, this morning when he got up to go the bathroom he became confused and "could not find the bed". When EMS picked him up the oxygen saturations were in the 80s. Patient's potassium was found to be low at 2.7 and lactic acid was elevated at 4.3 Patient has a history of lung cancer stage IV and is currently undergoing treatments. Patient's chest x-ray did not reveal pneumonia but certainly this seems to be a potential diagnosis as well as sepsis and hypokalemia. Patient will be admitted to hospital for IV antibiotics. History of Present Illness: ESTEBAN CHOI is a 73 year old male Past Medical History Cardiac Medical History: Denies: Coronary Artery Disease, Myocardial Infarction, Hypertension Pulmonary Medical History: Reports: Asthma, Chronic Obstructive Pulmonary Disease (COPD), Pneumonia Denies: Bronchitis Neurological Medical History: Denies: Seizures Malignancy Medical History: Reports: Lung Cancer GI Medical History: Denies: Hepatitis, Hiatal Hernia Musculoskeltal Medical History: Denies: Arthritis Psychiatric Medical History: Reports: Depression Hematology: Reports: Anemia Denies: Sickle Cell Disease Past Surgical History Past Surgical History: Reports: Other - Patient has 2 back surgeries left-sided partial lung resection Denies: Pacemaker Social History Lives with: Family Smoking Status: Former Smoker Cigarettes Packs Per Day: 2 Cigars Per Day: 0 Pipes Per Day: 0 Number of Years Smokin Last Time Smoked: 07/20/2015 Frequency of Alcohol Use: None Hx Recreational Drug Use: No Drugs: None Hx Prescription Drug Abuse: No - Advance Directive Resuscitation Status: Do Not Resuscitate Family History Family History: Reviewed & Not Pertinent Parental Family History Reviewed: No Children Family History Reviewed: No Sibling(s) Family History Reviewed.: No Medication/Allergy Home Medications: Clonazepam [Klonopin] 0.5 mg PO QHS 02/27/19 Dexamethasone [Decadron 4 mg Tablet] 4 mg PO DAILY 02/27/19 Docusate Sodium [Colace 100 mg Capsule] 100 mg PO TID 02/27/19 Ergocalciferol (Vitamin D2) [Drisdol 50,000 unit (1.25MG) Capsule] 50,000 unit PO SALAS@2200 02/27/19 Finasteride [Proscar 5 mg Tablet] 5 mg PO DAILY 02/27/19 Levalbuterol HCl [Xopenex Neb 0.63 mg/3 ml Ampul] 3 ml NEB Q6HP PRN 02/27/19 Methadone HCl [Dolophine HCl] 5 mg PO Q12 02/27/19 Ondansetron HCl [Zofran 8 mg Tablet] 8 mg PO Q8HP PRN 02/27/19 Polyethylene Glycol 3350 [Miralax Powder 17 gm/Packet] 17 gm PO DAILYP PRN 02/27/19 Ranitidine HCl [Zantac 75] 75 mg PO DAILY 02/27/19 Sertraline HCl [Zoloft 50 mg Tablet] 50 mg PO DAILY 02/27/19 Tamsulosin HCl [Flomax 0.4 mg Cap.sr] 0.8 mg PO DAILY 02/27/19 Umeclidinium Brm/Vilanterol Tr [Anoro Ellipta 62.5-25 Mcg INH] 1 puff IH DAILY 02/27/19 Allergies/Adverse Reactions: Penicillins Allergy (Severe, Verified 02/27/19 05:30) shock clarithromycin Allergy (Verified 02/27/19 05:30) fluconazole [From Diflucan] Allergy (Verified 02/27/19 05:30) Tachycardia indomethacin [From Indocin] Allergy (Verified 02/27/19 05:30) Migraine meperidine [From Demerol] Allergy (Verified 02/27/19 05:30) Syncope pseudoephedrine [From Sudafed] Allergy (Verified 02/27/19 05:30) tremor zolpidem [From Ambien] Allergy (Verified 02/27/19 05:30) acetaminophen [From Fioricet] Adverse Reaction (Verified 02/27/19 12:24) butalbital [From Fioricet] Adverse Reaction (Verified 02/27/19 12:24) caffeine [From Fioricet] Adverse Reaction (Verified 02/27/19 12:25) Review of Systems Constitutional: ABSENT: chills, fever(s), headache(s), weight gain, weight loss Nose, Mouth, and Throat: PRESENT: as per HPI Cardiovascular: PRESENT: as per HPI. ABSENT: chest pain, dyspnea on exertion, edema, orthropnea, palpitations Respiratory: ABSENT: cough, hemoptysis Gastrointestinal: ABSENT: abdominal pain, constipation, diarrhea, hematemesis, hematochezia, nausea, vomiting Neurological: ABSENT: abnormal gait, abnormal speech, confusion, dizziness, focal weakness, syncope Psychiatric: ABSENT: anxiety, depression, homidical ideation, suicidal ideation Physical Exam Vital Signs: Temp Pulse Resp BP Pulse Ox 98.6 F 85 17 147/73 H 93 02/27/19 12:03 02/27/19 14:00 02/27/19 12:29 02/27/19 12:03 02/27/19 12:29 Intake & Output 02/26/19 02/27/19 02/28/19 06:59 06:59 06:59 Intake Total 474 Output Total 250 Balance 224 Weight 55.6 kg 59.9 kg General appearance: PRESENT: mild distress Head exam: PRESENT: atraumatic, normocephalic Respiratory exam: PRESENT: clear to auscultation rosaura, decreased breath sounds. ABSENT: rales, rhonchi, wheezes Cardiovascular exam: PRESENT: RRR, other - Port is present. ABSENT: diastolic murmur, rubs, systolic murmur Neurological exam: PRESENT: alert, awake, oriented to person, oriented to place, oriented to time, oriented to situation, CN II-XII grossly intact, other - Patient is alert and oriented now, he also remembers being confused this morning and not being able to find the bed. ABSENT: motor sensory deficit Psychiatric exam: PRESENT: flat affect, other - She is slightly agitated, though this may be his normal demeanor Results Laboratory Results: 02/27/19 05:45 02/27/19 05:45 02/27/19 02/27/19 02/27/19 05:45 05:45 05:45 WBC 12.6 H RBC 3.99 L Hgb 11.1 L Hct 34.0 L MCV 85 MCH 27.7 MCHC 32.5 RDW 17.2 H Plt Count 359 Seg Neutrophils % Not Reportable Lymphocytes % Not Reportable Monocytes % Not Reportable Eosinophils % Not Reportable Basophils % Not Reportable Absolute Neutrophils Not Reportable Absolute Lymphocytes Not Reportable Absolute Monocytes Not Reportable Absolute Eosinophils Not Reportable Absolute Basophils Not Reportable VBG pH VBG pCO2 VBG HCO3 VBG Base Excess Sodium 138.5 Potassium 2.7 L* Chloride 94 L Carbon Dioxide 38 H Anion Gap 7 BUN 17 Creatinine 0.53 Est GFR ( Amer) > 60 Est GFR (Non-Af Amer) > 60 Glucose 111 H Lactic Acid Calcium 8.9 Magnesium 2.1 Total Bilirubin 0.6 AST 102 H Alkaline Phosphatase 508 H Total Protein 5.7 L Albumin 3.1 L Urine Color Urine Appearance Urine pH Ur Specific [place] Urine Protein Urine Glucose (UA) Urine Ketones Urine Blood Urine Nitrite Ur Leukocyte Esterase Urine WBC (Auto) Urine RBC (Auto) 02/27/19 02/27/19 02/27/19 06:10 06:10 11:14 WBC RBC Hgb Hct MCV MCH MCHC RDW Plt Count Seg Neutrophils % Lymphocytes % Monocytes % Eosinophils % Basophils % Absolute Neutrophils Absolute Lymphocytes Absolute Monocytes Absolute Eosinophils Absolute Basophils VBG pH 7.45 H VBG pCO2 50.3 VBG HCO3 34.4 H VBG Base Excess 9.1 Sodium Potassium Chloride Carbon Dioxide Anion Gap BUN Creatinine Est GFR ( Amer) Est GFR (Non-Af Amer) Glucose Lactic Acid 4.3 H Calcium Magnesium Total Bilirubin AST Alkaline Phosphatase Total Protein Albumin Urine Color YELLOW Urine Appearance SLIGHTLY-CLOUDY Urine pH 6.0 Ur Specific [place] 1.021 Urine Protein 30 H Urine Glucose (UA) NEGATIVE Urine Ketones NEGATIVE Urine Blood NEGATIVE Urine Nitrite NEGATIVE Ur Leukocyte Esterase NEGATIVE Urine WBC (Auto) 3 Urine RBC (Auto) 6 Impressions: Chest X-Ray 02/27/19 05:43 IMPRESSION: Interval placement of an Hhfzci-h-Laxv catheter. Other findings of the chest are stable copyright 2011 [employer]- All Rights Reserved Assessment and Plan - Diagnosis (1) Confusion Is this a current diagnosis for this admission?: Yes Plan: 02/27/2019 patient was confused this morning, got lost in his bedroom. Patient's is in the room and comments that he still seems somewhat confused. When he presented to the emergency room he was hypoxic (2) Hypokalemia Is this a current diagnosis for this admission?: Yes Plan: Patient's potassium in the emergency room was 2.7. Patient was given potassium supplements in the ED. Repeat Chem-7 is pending (3) Pneumonia Qualifiers: Pneumonia type: due to unspecified organism Laterality: left Lung l ocation: lower lobe of lung Qualified Code(s): J18.1 - Lobar pneumonia, unspecified organism Is this a current diagnosis for this admission?: Yes Plan: 02/27/2019 chest x-ray does not mention pneumonia but he has almost complete white out from his lung cancer on the left side, and patient could very easily have a pneumonia this area and not be seen (4) Sepsis Qualifiers: Sepsis type: sepsis due to unspecified organism Sepsis acute organ dysfu nction status: without acute organ dysfunction Qualified Code(s): A41.9 - Sepsis, unspecified organism Is this a current diagnosis for this admission?: Yes Plan: 02/27/2019 patient's temperature when he presented to the ER was 97.8, when transferred to the floor is 98.6. Blood pressure at 1030 this morning was 133/70 1.5 hours later it was 147/73. First recorded oxygen saturation was 526 this morning and it was at 89. Last recorded oxygen saturation was 93 at 1229. WBCs on admission 12.6 H&H 11.1 34.0. Patient will be placed on Levaquin IV as he is allergic to clarithromycin as well as penicillins, both allergies are severe and documented - Time Time Spent with patient: 35 or more minutes Smoking Cessation Education: 3 to 10 minutes Medications reviewed and adjusted accordingly: Yes Within: Other
[2019-02-27] MEDS: SERTRALINE HCL 50 MG TABLET PO SCH (16:50)
[2019-02-27] MEDS: DEXAMETHASONE 4 MG TABLET PO SCH (17:03)
[2019-02-27] MEDS: DOCUSATE SODIUM 100 MG CAPSULE PO SCH (17:04)
[2019-02-27] MEDS: METHADONE HCL 10 MG TABLET PO SCH (17:04)
[2019-02-27 18:02] LABS: ANION GAP 6 (5-19); BLOOD UREA NITROGEN 14 mg/dL (7-20); CARBON DIOXIDE 36 mmol/L (22-30); CHLORIDE 95 mmol/L (98-107); GLUCOSE 128 mg/dL (75-110)
[2019-02-27 18:04] LABS: POTASSIUM 3.8 mmol/L (3.6-5.0)
[2019-02-27] MEDS ORDERED: HYDRALAZINE HCL INJ/PF 20 MG/1 ML SDV IV PRN (18:33)
--- NOTE | 2019-02-27 20:00 | RADIOLOGY REPORT (SQ) ---
EXAM DESCRIPTION: CT HEAD WITHOUT COMPLETED DATE/TIME: 02/27/2019 7:38 pm REASON FOR STUDY: CONFUSION, brain mets COMPARISON: CT dated 11/30/2018. MR dated 12/03/2018. TECHNIQUE: Axial images acquired through the brain without intravenous contrast. Images reviewed wi th bone, brain and subdural windows. Additional sagittal and coronal reconstructions were generated. Images stored on PACS. All CT scanners at this facility use dose modulation, iterative reconstruction, and/or weight based d osing when appropriate to reduce radiation dose to as low as reasonably achievable (ALARA). [facility]: Dose Right [facility]: CareDose [facility]: Dose Right [facility]: Teradose 4D [facility]: Smart [employer] RADIATION DOSE: CT Rad equipment meets quality standard of care and radiation dose reduction techniq ues were employed. CTDIvol: 53.2 mGy. DLP: 964 mGy-cm.mGy. LIMITATIONS: None. FINDINGS: VENTRICLES: Prominent. CEREBRUM: Again seen is a low-attenuation predominately cystic lesion in the posterior right parietal lobe. There is a minimal area of increased attenuation along the inferior portion. No midline shif t. Areas of low density in the white matter most likely due to chronic micro-vascular ischemic cruz e. No evidence for acute infarction. CEREBELLUM: No masses. No hemorrhage. No alteration of density. No evidence for acute infarction. EXTRAAXIAL SPACES: Age-related involutional change. No fluid collections. No masses. ORBITS AND GLOBE: No intra- or extraconal masses. Normal contour of globe without masses. CALVARIUM: No fracture. PARANASAL SINUSES: No fluid or mucosal thickening. SOFT TISSUES: No mass or hematoma. OTHER: No other significant finding. IMPRESSION: LOW-ATTENUATION PREDOMINANTLY CYSTIC LESION IN THE POSTERIOR RIGHT PARIETAL LOBE. SIMIL AR APPEARANCE TO THE PRIOR STUDY. MINIMAL AREA OF INCREASED ATTENUATION ALONG THE INFERIOR PORTION, POSSIBLE AREA OF MINIMAL HEMORRHAGE. CHRONIC CHANGES OF ATROPHY AND MICROVASCULAR ISCHEMIA. EVIDENCE OF ACUTE STROKE: NO. COMMENT: The findings were sent to the Radiology Results Communication Center at 19:54 on 02/27/2019 to be communicated to a licensed caregiver. TECHNICAL DOCUMENTATION: JOB ID: [id number] Quality ID # [id number]: Final reports with documentation of one or more dose reduction techniques (e.g., Au tomated exposure control, adjustment of the mA and/or kV according to patient size, use of iterative reconstruction technique) 2010 [employer]- All Rights Reserved Reading location - IP/workstation name: [email or web address]
[2019-02-27] MEDS ORDERED: CLONAZEPAM 1 MG TABLET PO SCH (22:00)
[2019-02-27] MEDS ORDERED: (PENDING PHARMACY ID) (Clonazepam [Klonopin] 0.5 MG) PO SCH (22:00)
[2019-02-28] MEDS: METHADONE HCL 10 MG TABLET PO SCH ×2 (05:15→18:11)
[2019-02-28 05:52] LABS: HEMATOCRIT 34.9 % (37.9-51.0); HEMOGLOBIN 11.3 g/dL (13.5-17.0); MEAN CORPUSCULAR HEMOGLOBIN 27.5 pg (27.0-33.4); MEAN CORPUSCULAR HGB CONC 32.5 g/dL (32.0-36.0); MEAN CORPUSCULAR VOLUME 85 fl (80-97); PLATELET COUNT 335 10^3/uL (150-450); RED BLOOD COUNT 4.13 10^6/uL (4.35-5.55); RED CELL DISTRIBUTION WIDTH 16.9 % (11.5-14.0); WHITE BLOOD COUNT 9.6 10^3/uL (4.0-10.5)
[2019-02-28 06:06] LABS: ALBUMIN 2.9 g/dL (3.5-5.0); ALKALINE PHOSPHATASE 528 U/L (38-126); ANION GAP 6 (5-19); ASPARTATE AMINO TRANSFERASE 93 U/L (17-59); BILIRUBIN,DIRECT 0.4 mg/dL (0.0-0.4); BILIRUBIN,TOTAL 0.5 mg/dL (0.2-1.3); BLOOD UREA NITROGEN 14 mg/dL (7-20); CALCIUM 9.1 mg/dL (8.4-10.2); CARBON DIOXIDE 38 mmol/L (22-30); CHLORIDE 93 mmol/L (98-107); GLUCOSE 105 mg/dL (75-110); POTASSIUM 3.3 mmol/L (3.6-5.0); TOTAL PROTEIN 5.5 g/dL (6.3-8.2)
[2019-02-28 06:08] LABS: ABSOLUTE LYMPHOCYTES# (MANUAL) 0.5 10^3/uL (0.5-4.7); ABSOLUTE MONOCYTES # (MANUAL) 1.1 10^3/uL (0.1-1.4); BASOPHILS % (MANUAL) 0 % (0-2); EOSINOPHILS % (MANUAL) 0 % (0-6); LYMPHOCYTES % (MANUAL) 5 % (13-45); MONOCYTES % (MANUAL) 11 % (3-13); SEGMENTED NEUTROPHILS % (MAN) 84 % (42-78); TOTAL CELLS COUNTED 100
[2019-02-28 06:10] LABS: ANISOCYTOSIS 1+; OVALOCYTES 1+; POIKILOCYTOSIS 1+; TEAR DROP CELLS SLIGHT; TOXIC GRANULATION 1+
[2019-02-28 06:11] LABS: PLATELET COMMENT ADEQUATE
--- NOTE | 2019-02-28 08:25 | PDOC PROGRESS REPORT ---
Subjective Progress Note for:: 02/28/19 Subjective:: Pt doing better this am, reviewed labs and pt has 2/2 bcx + for GPC. Had a bout of confusion overnight. Reason For Visit: PNSUMONIA,LUNG CANCER, HYPOKALEMIA, ALTERED MENTAL Physical Exam Vital Signs: Temp Pulse Resp BP Pulse Ox 98.3 F 71 18 140/87 H 96 02/28/19 07:54 02/28/19 07:54 02/28/19 07:54 02/28/19 07:54 02/28/19 07:54 Intake & Output 02/27/19 02/28/19 03/01/19 06:59 06:59 06:59 Intake Total 1747 Output Total 1350 Balance 397 Weight 55.6 kg 60.1 kg General appearance: PRESENT: no acute distress, well-developed, well-nourished Head exam: PRESENT: atraumatic, normocephalic Eye exam: PRESENT: conjunctiva pink, EOMI, PERRLA. ABSENT: scleral icterus Ear exam: PRESENT: normal external ear exam Mouth exam: PRESENT: moist, tongue midline Neck exam: ABSENT: carotid bruit, JVD, lymphadenopathy, thyromegaly Respiratory exam: PRESENT: clear to auscultation rosaura. ABSENT: rales, rhonchi, wheezes Cardiovascular exam: PRESENT: RRR. ABSENT: diastolic murmur, rubs, systolic murmur Pulses: PRESENT: normal dorsalis pedis pul Vascular exam: PRESENT: normal capillary refill GI/Abdominal exam: PRESENT: normal bowel sounds, soft. ABSENT: distended, guarding, mass, organolmegaly, rebound, tenderness Rectal exam: PRESENT: deferred Extremities exam: PRESENT: full ROM. ABSENT: calf tenderness, clubbing, pedal edema Neurological exam: PRESENT: alert, awake, oriented to person, oriented to place, oriented to time, oriented to situation, CN II-XII grossly intact. ABSENT: motor sensory deficit Psychiatric exam: PRESENT: appropriate affect, normal mood. ABSENT: homicidal ideation, suicidal ideation Skin exam: PRESENT: dry, intact, warm. ABSENT: cyanosis, rash Results Laboratory Results: 02/28/19 05:26 02/28/19 05:26 02/27/19 02/27/19 02/28/19 11:14 17:25 05:26 WBC RBC Hgb Hct MCV MCH MCHC RDW Plt Count Seg Neutrophils % Lymphocytes % Monocytes % Eosinophils % Basophils % Absolute Neutrophils Absolute Lymphocytes Absolute Monocytes Absolute Eosinophils Absolute Basophils Sodium 136.8 L Potassium 3.8 D Chloride 95 L Carbon Dioxide 36 H Anion Gap 6 BUN 14 Creatinine 0.66 Est GFR ( Amer) > 60 Est GFR (Non-Af Amer) > 60 Glucose 128 H Calcium 9.0 Total Bilirubin AST Alkaline Phosphatase Total Protein Albumin Urine Color YELLOW Urine Appearance SLIGHTLY-CLOUDY Urine pH 6.0 Ur Specific Roosevelt 1.021 Urine Protein 30 H Urine Glucose (UA) NEGATIVE Urine Ketones NEGATIVE Urine Blood NEGATIVE Urine Nitrite NEGATIVE Ur Leukocyte Esterase NEGATIVE Urine WBC (Auto) 3 Urine RBC (Auto) 6 Blood Type O POSITIVE 02/28/19 02/28/19 05:26 05:26 WBC 9.6 RBC 4.13 L Hgb 11.3 L Hct 34.9 L MCV 85 MCH 27.5 MCHC 32.5 RDW 16.9 H Plt Count 335 Seg Neutrophils % Not Reportable Lymphocytes % Not Reportable Monocytes % Not Reportable Eosinophils % Not Reportable Basophils % Not Reportable Absolute Neutrophils Not Reportable Absolute Lymphocytes Not Reportable Absolute Monocytes Not Reportable Absolute Eosinophils Not Reportable Absolute Basophils Not Reportable Sodium 136.6 L Potassium 3.3 L Chloride 93 L Carbon Dioxide 38 H Anion Gap 6 BUN 14 Creatinine 0.62 Est GFR ( Amer) > 60 Est GFR (Non-Af Amer) > 60 Glucose 105 Calcium 9.1 Total Bilirubin 0.5 AST 93 H Alkaline Phosphatase 528 H Total Protein 5.5 L Albumin 2.9 L Urine Color Urine Appearance Urine pH Ur Specific Roosevelt Urine Protein Urine Glucose (UA) Urine Ketones Urine Blood Urine Nitrite Ur Leukocyte Esterase Urine WBC (Auto) Urine RBC (Auto) Blood Type Impressions: Chest X-Ray 02/27/19 05:43 IMPRESSION: Interval placement of an [id number] catheter. Other findings of the chest are stable copyright 2011 [employer]- All Rights Reserved Head CT 02/27/19 16:15 IMPRESSION: LOW-ATTENUATION PREDOMINANTLY CYSTIC LESION IN THE POSTERIOR RIGHT PARIETAL LOBE. SIMILAR APPEARANCE TO THE PRIOR STUDY. MINIMAL AREA OF INCREASED ATTENUATION ALONG THE INFERIOR PORTION, POSSIBLE AREA OF MINIMAL HEMORRHAGE. CHRONIC CHANGES OF ATROPHY AND MICROVASCULAR ISCHEMIA. EVIDENCE OF ACUTE STROKE: NO. Assessment & Plan - Diagnosis (1) Sepsis Qualifiers: Sepsis type: Streptococcus, other Sepsis acute organ dysfunction status: without acute organ dysfunction Qualified Code(s): A40.8 - Other streptococcal sepsis Is this a current diagnosis for this admission?: Yes Plan: Sepsis with strep+BCx, will add vancomycin and await sensitivities (2) Acute respiratory failure Qualifiers: Respiratory failure complication: hypoxia Qualified Code(s): J96.01 - Acute respiratory failure with hypoxia Is this a current diagnosis for this admission?: Yes Plan: Improved, likely 2nd to pneumonia (3) Pneumonia Qualifiers: Pneumonia type: due to group B Streptococcus Laterality: left Lung location: lower lobe of lung Qualified Code(s): J15.3 - Pneumonia due to streptococcus, group B Is this a current diagnosis for this admission?: Yes Plan: +Strep most likely, add vanc to regimen, need to recheck, Bcx in 24 hrs (4) Lung cancer Qualifiers: Laterality: left Lung location: lower lobe of lung Qualified Code(s): C34.32 - Malignant neoplasm of lower lobe, left bronchus or lung Is this a current diagnosis for this admission?: Yes Plan: Hold on immunoRx until next wk (5) Confusion Is this a current diagnosis for this admission?: Yes Plan: CT head w/ no major changes
[2019-02-28] MEDS: GUAIFENESIN 600 MG TABLET.SA PO SCH ×2 (09:13→21:12)
[2019-02-28] MEDS: FAMOTIDINE 20 MG TABLET PO SCH ×2 (09:13→21:12)
[2019-02-28] MEDS: DOCUSATE SODIUM 100 MG CAPSULE PO SCH ×3 (09:13→18:06)
[2019-02-28] MEDS: FINASTERIDE 5 MG TABLET PO SCH (09:13)
[2019-02-28] MEDS: ENOXAPARIN SODIUM INJ 40 MG/0.4 ML DISP.SYRIN SUBCUT SCH (09:13)
[2019-02-28] MEDS: LEVOFLOXACIN 750 MG/D5W RTU 750 MG/150 ML RTUPB IV SCH (09:13)
[2019-02-28] MEDS: TAMSULOSIN HCL 0.4 MG CAP.SR.24H PO SCH (09:13)
[2019-02-28] MEDS: SERTRALINE HCL 50 MG TABLET PO SCH (09:13)
--- NOTE | 2019-02-28 09:42 | PDOC PROGRESS REPORT ---
Subjective Progress Note for:: 02/28/19 Subjective:: February 28, 2019-urinary retention confusion Reason For Visit: PNSUMONIA,LUNG CANCER, HYPOKALEMIA, ALTERED MENTAL Physical Exam Vital Signs: Temp Pulse Resp BP Pulse Ox 98.3 F 71 18 140/87 H 96 02/28/19 07:54 02/28/19 07:54 02/28/19 07:54 02/28/19 07:54 02/28/19 07:54 Intake & Output 02/27/19 02/28/19 03/01/19 06:59 06:59 06:59 Intake Total 1747 Output Total 1350 Balance 397 Weight 55.6 kg 60.1 kg General appearance: PRESENT: no acute distress, well-developed, well-nourished Neck exam: ABSENT: carotid bruit, JVD, lymphadenopathy, thyromegaly Respiratory exam: PRESENT: decreased breath sounds, unlabored Cardiovascular exam: PRESENT: RRR. ABSENT: diastolic murmur, rubs, systolic murmur Pulses: PRESENT: +1 pedal pulses bilateral GI/Abdominal exam: PRESENT: normal bowel sounds, soft. ABSENT: distended, guarding, mass, organolmegaly, rebound, tenderness Extremities exam: PRESENT: full ROM. ABSENT: calf tenderness, clubbing, pedal edema Neurological exam: PRESENT: alert, awake - Somewhat confused according to family Psychiatric exam: PRESENT: flat affect Results Laboratory Results: 02/28/19 05:26 02/28/19 05:26 02/27/19 02/27/19 02/28/19 11:14 17:25 05:26 WBC RBC Hgb Hct MCV MCH MCHC RDW Plt Count Seg Neutrophils % Lymphocytes % Monocytes % Eosinophils % Basophils % Absolute Neutrophils Absolute Lymphocytes Absolute Monocytes Absolute Eosinophils Absolute Basophils Sodium 136.8 L Potassium 3.8 D Chloride 95 L Carbon Dioxide 36 H Anion Gap 6 BUN 14 Creatinine 0.66 Est GFR ( Amer) > 60 Est GFR (Non-Af Amer) > 60 Glucose 128 H Calcium 9.0 Total Bilirubin AST Alkaline Phosphatase Total Protein Albumin Urine Color YELLOW Urine Appearance SLIGHTLY-CLOUDY Urine pH 6.0 Ur Specific Tiller 1.021 Urine Protein 30 H Urine Glucose (UA) NEGATIVE Urine Ketones NEGATIVE Urine Blood NEGATIVE Urine Nitrite NEGATIVE Ur Leukocyte Esterase NEGATIVE Urine WBC (Auto) 3 Urine RBC (Auto) 6 Blood Type O POSITIVE 02/28/19 02/28/19 05:26 05:26 WBC 9.6 RBC 4.13 L Hgb 11.3 L Hct 34.9 L MCV 85 MCH 27.5 MCHC 32.5 RDW 16.9 H Plt Count 335 Seg Neutrophils % Not Reportable Lymphocytes % Not Reportable Monocytes % Not Reportable Eosinophils % Not Reportable Basophils % Not Reportable Absolute Neutrophils Not Reportable Absolute Lymphocytes Not Reportable Absolute Monocytes Not Reportable Absolute Eosinophils Not Reportable Absolute Basophils Not Reportable Sodium 136.6 L Potassium 3.3 L Chloride 93 L Carbon Dioxide 38 H Anion Gap 6 BUN 14 Creatinine 0.62 Est GFR ( Amer) > 60 Est GFR (Non-Af Amer) > 60 Glucose 105 Calcium 9.1 Total Bilirubin 0.5 AST 93 H Alkaline Phosphatase 528 H Total Protein 5.5 L Albumin 2.9 L Urine Color Urine Appearance Urine pH Ur Specific Tiller Urine Protein Urine Glucose (UA) Urine Ketones Urine Blood Urine Nitrite Ur Leukocyte Esterase Urine WBC (Auto) Urine RBC (Auto) Blood Type Impressions: Chest X-Ray 02/27/19 05:43 IMPRESSION: Interval placement of an Cfgfaw-b-Ewor catheter. Other findings of the chest are stable copyright 2011 [employer]- All Rights Reserved Head CT 02/27/19 16:15 IMPRESSION: LOW-ATTENUATION PREDOMINANTLY CYSTIC LESION IN THE POSTERIOR RIGHT PARIETAL LOBE. SIMILAR APPEARANCE TO THE PRIOR STUDY. MINIMAL AREA OF INCREASE D ATTENUATION ALONG THE INFERIOR PORTION, POSSIBLE AREA OF MINIMAL HEMORRHAGE. CHRONIC CHANGES OF ATROPHY AND MICROVASCULAR ISCHEMIA. EVIDENCE OF ACUTE STROKE: NO. Assessment and Plan - Diagnosis (1) Confusion Is this a current diagnosis for this admission?: Yes Plan: 02/27/2019 patient was confused this morning, got lost in his bedroom. Patient's is in the room and comments that he still seems somewhat confused. When he presented to the emergency room he was hypoxic February 28, 2019-patient admitted for confusion with pneumonia. Most likely acute metabolic encephalopathy. Patient clear this morning although still somewhat confused according to . Patient remains on Levaquin at this time. White count down to normal at this time. Continue to follow await cultures. also states patient usually gets his clonazepam at 6:00 in the afternoon. Did get until 2200 last evening. Will ensure patient gets his clonazepam at 6:00 (2) Hypokalemia Is this a current diagnosis for this admission?: Yes Plan: Patient's potassium in the emergency room was 2.7. Patient was given potassium supplements in the ED. Repeat Chem-7 is pending February 28, 2019-improved. Potassium is 3.5 today I will give him 40 mg p.o. times 1 repeat BMP in a.m. (3) Urinary retention Is this a current diagnosis for this admission?: Yes Plan: February 28, 2019-patient with history of lung cancer with mets to the brain and liver. Patient having difficulty starting stream of urine and had 800 residual yesterday afternoon. I placed a Iglesias catheter we will get a PSA I suspect this could be secondary to metastasis to his prostate as well. We will continue to follow (4) Pneumonia Qualifiers: Pneumonia type: due to group B Streptococcus Laterality: left Lung lo cation: lower lobe of lung Qualified Code(s): J15.3 - Pneumonia due to streptococcus, group B Is this a current diagnosis for this admission?: Yes Plan: 02/27/2019 chest x-ray does not mention pneumonia but he has almost complete white out from his lung cancer on the left side, and patient could very easily have a pneumonia this area and not be seen February 28, 2019-etiology unknown. Continue antibiotics until cultures return. - Time Time Spent with patient: 15-24 minutes - Inpatient Certification Based on my medical assessment, after consideration of the patient's comorbidities, presenting symptoms, or acuity I expect that the services needed warrant INPATIENT care.: Yes I certify that my determination is in accordance with my understanding of Medicare's requirements for reasonable and necessary INPATIENT services [42 CFR 412.3e].: Yes Medical Necessity: Other - IV antibiotics,
--- NOTE | 2019-02-28 09:42 | Progress Note Acknowledgement ---
Progress Note Acknowledgement Progess Note Acknowledgement: I, the undersigned member of the medical staff with appropriate privileges and with supervisory authority over [Eric Hardwick], a dependent practice allied health professional, acknowledge that I have reviewed the progress notes entered on this patient, and in my professional judgment believe that the assessment made and/or any care evidenced was appropriate
[2019-02-28] MEDS ORDERED: (PENDING PHARMACY ID) (Umeclidinium Brm/Vilanterol Tr [Anoro Ellipta 62.5-25 Mcg Inh] 1 PU IH SCH (10:00)
[2019-02-28] MEDS ORDERED: POTASSIUM CHLORIDE 10 MEQ CAPSULE.ER PO ONE (10:30)
[2019-02-28] MEDS ORDERED: VANCOMYCIN HCL 0 MG in DEXTROSE 5%-WATER 250 ML IV NR (10:45)
[2019-02-28] MEDS ORDERED: VANCOMYCIN HCL 1,500 MG in DEXTROSE 5%-WATER 250 ML IV ONE (12:00)
[2019-02-28] MEDS: 1/2 NORMAL SALINE 1,000 ML IV PRN (15:40)
[2019-02-28] MEDS ORDERED: PHENYTOIN SODIUM INJ/PF 100 MG/2 ML SDV ONE ×3 (17:03→17:05)
[2019-02-28] MEDS ORDERED: LORAZEPAM 1 MG TABLET ONE (17:04)
--- NOTE | 2019-02-28 17:27 | Progress Note ---
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 Slater responded to the rapid response lately patient was witnessed to have mild tonic clonic activity of the right arm and the eyes were deviated to the left patient would not follow commands patient was given Ativan 2 mg IV loading dose of Dilantin the thousand milligrams is ordered patient was being bagged however he did have spontaneous respirations and a good heart rate was written for respiratory therapy to see the patient and make evaluations recommendations it was decided that the patient should be transferred to higher level care therefore he was transferred to C Orders were written for Dilantin 100 mg IV3 times daily I spoke to the and daughter and the same of the situation. Patient is a DNR. Prognosis is poor
[2019-02-28] MEDS ORDERED: LORAZEPAM INJ 2 MG/1 ML VIAL IV ONE (18:00)
[2019-02-28] MEDS: DEXAMETHASONE 4 MG TABLET PO SCH (18:11)
[2019-02-28] MEDS: CLONAZEPAM 1 MG TABLET PO SCH (18:14)
[2019-02-28] MEDS ORDERED: PHENYTOIN SODIUM INJ/PF 100 MG/2 ML SDV IV ONE (18:30)
[2019-02-28] MEDS ORDERED: PHENYTOIN SODIUM INJ/PF 250 MG/5 ML SDV IV ONE (19:00)
[2019-02-28] MEDS: VANCOMYCIN HCL 1,000 MG in DEXTROSE 5%-WATER 250 ML IV SCH (22:09)
[2019-02-28] MEDS: PHENYTOIN SODIUM INJ/PF 100 MG/2 ML SDV IV SCH (22:09)
[2019-03-01] MEDS: 1/2 NORMAL SALINE 1,000 ML IV PRN ×2 (05:08→20:26)
[2019-03-01] MEDS: METHADONE HCL 10 MG TABLET PO SCH ×2 (05:08→17:08)
[2019-03-01] MEDS: PHENYTOIN SODIUM INJ/PF 100 MG/2 ML SDV IV SCH ×3 (05:09→22:31)
[2019-03-01] MEDS ORDERED: LORAZEPAM INJ 2 MG/1 ML VIAL IV PRN (05:22)
[2019-03-01 06:23] LABS: HEMATOCRIT 32.5 % (37.9-51.0); HEMOGLOBIN 10.6 g/dL (13.5-17.0); MEAN CORPUSCULAR HEMOGLOBIN 27.5 pg (27.0-33.4); MEAN CORPUSCULAR HGB CONC 32.6 g/dL (32.0-36.0); MEAN CORPUSCULAR VOLUME 85 fl (80-97); PLATELET COUNT 325 10^3/uL (150-450); RED BLOOD COUNT 3.84 10^6/uL (4.35-5.55); RED CELL DISTRIBUTION WIDTH 16.8 % (11.5-14.0)
[2019-03-01 06:46] LABS: ALBUMIN 2.6 g/dL (3.5-5.0); ALKALINE PHOSPHATASE 451 U/L (38-126); ASPARTATE AMINO TRANSFERASE 140 U/L (17-59); BILIRUBIN,DIRECT 0.2 mg/dL (0.0-0.4); BILIRUBIN,TOTAL 0.3 mg/dL (0.2-1.3); BLOOD UREA NITROGEN 11 mg/dL (7-20); CALCIUM 8.4 mg/dL (8.4-10.2); GLUCOSE 81 mg/dL (75-110); POTASSIUM 3.3 mmol/L (3.6-5.0); TOTAL PROTEIN 4.8 g/dL (6.3-8.2)
[2019-03-01 06:51] LABS: ABSOLUTE LYMPHOCYTES# (MANUAL) 0.8 10^3/uL (0.5-4.7); ABSOLUTE MONOCYTES # (MANUAL) 0.5 10^3/uL (0.1-1.4); BASOPHILS % (MANUAL) 0 % (0-2); CARBON DIOXIDE 38 mmol/L (22-30); CHLORIDE 96 mmol/L (98-107); EOSINOPHILS % (MANUAL) 0 % (0-6); LYMPHOCYTES % (MANUAL) 7 % (13-45); MONOCYTES % (MANUAL) 6 % (3-13); SEGMENTED NEUTROPHILS % (MAN) 85 % (42-78); TOTAL CELLS COUNTED 100
[2019-03-01 06:53] LABS: ANION GAP -1 (5-19); ANISOCYTOSIS 1+; PLATELET COMMENT ADEQUATE
--- NOTE | 2019-03-01 08:46 | PDOC PROGRESS REPORT ---
Subjective Progress Note for:: 03/01/19 Subjective:: Pt confused this am, yesterday had tonic clonic seizure, was given dilantin. Discussed doing MRI of brain w/ contrast with this am who agrees. I ordered that this am. Reason For Visit: PNEUMONIA,LUNG CANCER, HYPOKALEMIA, ALTERED MENTAL Physical Exam Vital Signs: Temp Pulse Resp BP Pulse Ox 98.0 F 80 15 126/63 H 97 03/01/19 03:05 03/01/19 07:00 03/01/19 03:05 03/01/19 03:05 03/01/19 03:05 Intake & Output 02/28/19 03/01/19 03/02/19 06:59 06:59 06:59 Intake Total 2747 1890 Output Total 1350 1950 Balance 1397 -60 Weight 60.1 kg 63.6 kg General appearance: PRESENT: no acute distress, well-developed, well-nourished Head exam: PRESENT: atraumatic, normocephalic Eye exam: PRESENT: conjunctiva pink, EOMI, PERRLA. ABSENT: scleral icterus Ear exam: PRESENT: normal external ear exam Mouth exam: PRESENT: moist, tongue midline Neck exam: ABSENT: carotid bruit, JVD, lymphadenopathy, thyromegaly Respiratory exam: PRESENT: clear to auscultation rosaura. ABSENT: rales, rhonchi, wheezes Cardiovascular exam: PRESENT: RRR. ABSENT: diastolic murmur, rubs, systolic murmur Pulses: PRESENT: normal dorsalis pedis pul Vascular exam: PRESENT: normal capillary refill GI/Abdominal exam: PRESENT: normal bowel sounds, soft. ABSENT: distended, guarding, mass, organolmegaly, rebound, tenderness Rectal exam: PRESENT: deferred Extremities exam: PRESENT: full ROM. ABSENT: calf tenderness, clubbing, pedal edema Neurological exam: PRESENT: alert, awake, oriented to person, oriented to place, oriented to time, oriented to situation, CN II-XII grossly intact. ABSENT: motor sensory deficit Psychiatric exam: PRESENT: appropriate affect, normal mood. ABSENT: homicidal ideation, suicidal ideation Skin exam: PRESENT: dry, intact, warm. ABSENT: cyanosis, rash Results Laboratory Results: 03/01/19 06:07 03/01/19 06:07 02/28/19 02/28/19 03/01/19 05:26 05:26 06:07 WBC 9.0 RBC 3.84 L Hgb 10.6 L Hct 32.5 L MCV 85 MCH 27.5 MCHC 32.6 RDW 16.8 H Plt Count 325 Seg Neutrophils % Not Reportable Lymphocytes % Not Reportable Monocytes % Not Reportable Eosinophils % Not Reportable Basophils % Not Reportable Absolute Neutrophils Not Reportable Absolute Lymphocytes Not Reportable Absolute Monocytes Not Reportable Absolute Eosinophils Not Reportable Absolute Basophils Not Reportable Sodium Potassium Chloride Carbon Dioxide Anion Gap BUN Creatinine Est GFR ( Amer) Est GFR (Non-Af Amer) Glucose Calcium Total Bilirubin AST Alkaline Phosphatase Total Protein Albumin Prostate Specific Ag 1.550 Blood Type O POSITIVE 03/01/19 06:07 WBC RBC Hgb Hct MCV MCH MCHC RDW Plt Count Seg Neutrophils % Lymphocytes % Monocytes % Eosinophils % Basophils % Absolute Neutrophils Absolute Lymphocytes Absolute Monocytes Absolute Eosinophils Absolute Basophils Sodium 132.8 L Potassium 3.3 L Chloride 96 L Carbon Dioxide 38 H Anion Gap -1 L BUN 11 Creatinine 0.70 Est GFR ( Amer) > 60 Est GFR (Non-Af Amer) > 60 Glucose 81 Calcium 8.4 Total Bilirubin 0.3 AST 140 H Alkaline Phosphatase 451 H Total Protein 4.8 L Albumin 2.6 L Prostate Specific Ag Blood Type Impressions: Chest X-Ray 02/27/19 05:43 IMPRESSION: Interval placement of an Wjctei-j-Mogq catheter. Other findings of the chest are stable copyright 2011 [employer]- All Rights Reserved Head CT 02/27/19 16:15 IMPRESSION: LOW-ATTENUATION PREDOMINANTLY CYSTIC LESION IN THE POSTERIOR RIGHT PARIETAL LOBE. SIMILAR APPEARANCE TO THE PRIOR STUDY. MINIMAL AREA OF INCREASED ATTENUATION ALONG THE INFERIOR PORTION, POSSIBLE AREA OF MINIMAL HEMORRHAGE. CHRONIC CHANGES OF ATROPHY AND MICROVASCULAR ISCHEMIA. EVIDENCE OF ACUTE STROKE: NO. Assessment & Plan - Diagnosis (1) Sepsis Qualifiers: Sepsis type: Streptococcus, other Sepsis acute organ dysfunction status: without acute organ dysfunction Qualified Code(s): A40.8 - Other streptococcal sepsis Is this a current diagnosis for this admission?: Yes Plan: Improved (2) Acute respiratory failure Qualifiers: Respiratory failure complication: hypoxia Qualified Code(s): J96.01 - Acute respiratory failure with hypoxia Is this a current diagnosis for this admission?: Yes Plan: improved (3) Pneumonia Qualifiers: Pneumonia type: due to group B Streptococcus Laterality: left Lung location: lower lobe of lung Qualified Code(s): J15.3 - Pneumonia due to streptococcus, group B Is this a current diagnosis for this admission?: Yes Plan: Cont atbx await culture results (4) Lung cancer Qualifiers: Laterality: left Lung location: lower lobe of lung Qualified Code(s): C34.32 - Malignant neoplasm of lower lobe, left bronchus or lung Is this a current diagnosis for this admission?: Yes Plan: Was planning immunoRx as outpt but ordered MRI of brain today, if brain disease worsened we will discuss hospice w/ pt and family. agrees with this approach. I will order hospice if we decide on this. (5) Confusion Is this a current diagnosis for this admission?: Yes Plan: multifactorial, MRI brain pending.
[2019-03-01] MEDS: LEVOFLOXACIN 750 MG/D5W RTU 750 MG/150 ML RTUPB IV SCH (09:54)
[2019-03-01] MEDS: ENOXAPARIN SODIUM INJ 40 MG/0.4 ML DISP.SYRIN SUBCUT SCH (10:00)
[2019-03-01] MEDS: FINASTERIDE 5 MG TABLET PO SCH (10:15)
[2019-03-01] MEDS: DOCUSATE SODIUM 100 MG CAPSULE PO SCH ×3 (10:15→17:05)
[2019-03-01] MEDS: TAMSULOSIN HCL 0.4 MG CAP.SR.24H PO SCH (10:15)
[2019-03-01] MEDS: FAMOTIDINE 20 MG TABLET PO SCH ×2 (10:15→22:33)
[2019-03-01] MEDS: GUAIFENESIN 600 MG TABLET.SA PO SCH ×2 (10:15→22:32)
[2019-03-01] MEDS: SERTRALINE HCL 50 MG TABLET PO SCH (10:15)
[2019-03-01] MEDS: VANCOMYCIN HCL 1,000 MG in DEXTROSE 5%-WATER 250 ML IV SCH ×2 (12:26→22:30)
[2019-03-01] MEDS ORDERED: DIPHENHYDRAMINE HCL 25 MG/10 ML UDC PO ONE ×2 (12:45→19:15)
--- NOTE | 2019-03-01 16:42 | PDOC PROGRESS REPORT ---
Subjective Progress Note for:: 03/01/19 Subjective:: This is 73 years old male patient with history of stage IV lung cancer presented with chief complaint of cough of 3 days duration and altered mental status. At presentation patient found to be leukocytosis and lactic acidosis. This morning the lab reported to me his 2 blood cultures are positive for Enterococcus faecalis which is sensitive to ampicillin penicillin and vancomycin. Patient has been on Levaquin and vancomycin so I discontinued the Levaquin and continue with the bank. Reason For Visit: PNEUMONIA,LUNG CANCER, HYPOKALEMIA, ALTERED MENTAL Physical Exam Vital Signs: Temp Pulse Resp BP Pulse Ox 97.5 F 79 14 105/63 94 03/01/19 12:35 03/01/19 14:00 03/01/19 12:35 03/01/19 12:35 03/01/19 12:35 Intake & Output 02/28/19 03/01/19 03/02/19 06:59 06:59 06:59 Intake Total 2747 1890 400 Output Total 1350 1950 Balance 1397 -60 400 Weight 60.1 kg 63.6 kg General appearance: PRESENT: no acute distress Neck exam: ABSENT: carotid bruit, JVD, lymphadenopathy, thyromegaly Respiratory exam: PRESENT: decreased breath sounds GI/Abdominal exam: PRESENT: normal bowel sounds, soft. ABSENT: distended, guarding, mass, organolmegaly, rebound, tenderness Neurological exam: PRESENT: alert, altered Results Laboratory Results: 03/01/19 06:07 03/01/19 06:07 03/01/19 03/01/19 06:07 06:07 WBC 9.0 RBC 3.84 L Hgb 10.6 L Hct 32.5 L MCV 85 MCH 27.5 MCHC 32.6 RDW 16.8 H Plt Count 325 Seg Neutrophils % Not Reportable Lymphocytes % Not Reportable Monocytes % Not Reportable Eosinophils % Not Reportable Basophils % Not Reportable Absolute Neutrophils Not Reportable Absolute Lymphocytes Not Reportable Absolute Monocytes Not Reportable Absolute Eosinophils Not Reportable Absolute Basophils Not Reportable Sodium 132.8 L Potassium 3.3 L Chloride 96 L Carbon Dioxide 38 H Anion Gap -1 L BUN 11 Creatinine 0.70 Est GFR ( Amer) > 60 Est GFR (Non-Af Amer) > 60 Glucose 81 Calcium 8.4 Total Bilirubin 0.3 AST 140 H Alkaline Phosphatase 451 H Total Protein 4.8 L Albumin 2.6 L 02/27/19 10:51 Sputum Gram Stain - Final 02/27/19 10:51 Sputum Sputum Culture - Final Staphylococcus Aureus C.albicans/C.dubliniensis Normal Audrey 02/27/19 05:45 Blood Blood Culture - Final Enterococcus Faecalis(Group D) 02/27/19 06:10 Blood Blood Culture - Final Enterococcus Faecalis(Group D) Impressions: Chest X-Ray 02/27/19 05:43 IMPRESSION: Interval placement of an Hwlwvu-k-Uwws catheter. Other findings of the chest are stable copyright 2011 [employer]- All Rights Reserved Head CT 02/27/19 16:15 IMPRESSION: LOW-ATTENUATION PREDOMINANTLY CYSTIC LESION IN THE POSTERIOR RIGHT PARIETAL LOBE. SIMILAR APPEARANCE TO THE PRIOR STUDY. MINIMAL AREA OF INCREASED ATTENUATION ALONG THE INFERIOR PORTION, POSSIBLE AREA OF MINIMAL HEMORRHAGE. CHRONIC CHANGES OF ATROPHY AND MICROVASCULAR ISCHEMIA. EVIDENCE OF ACUTE STROKE: NO. Assessment and Plan - Diagnosis (1) Gram-positive bacteremia Is this a current diagnosis for this admission?: Yes Plan: Due to Enterococcus faecalis. The organism is sensitive to ampicillin, penicillin and vancomycin. Levaquin discontinued and vancomycin will be continued since patient Gram stain of his sputum is positive for staph aureus. The final report is pending (2) Sepsis Is this a current diagnosis for this admission?: Yes Plan: Most probably pulmonary origin (3) Pneumonia Is this a current diagnosis for this admission?: Yes Plan: Continue current antibiotics (4) Acute encephalopathy Is this a current diagnosis for this admission?: Yes Plan: May be related to his pneumonia and sepsis. Since he has stage IV lung cancer the possibility of brain metastasis is considered by Dr. Myles and he will have MRI of the brain with contrast. (5) Stage IV lung CA Is this a current diagnosis for this admission?: Yes Plan: Management per Dr. Myles.
--- NOTE | 2019-03-01 16:42 | RADIOLOGY REPORT (SQ) ---
EXAM DESCRIPTION: MRI HEAD COMBO COMPLETED DATE/TIME: 03/01/2019 3:00 pm REASON FOR STUDY: indication: evaluate for brain mets. COMPARISON: 12/03/2018 TECHNIQUE: Multiplanar imaging includes noncontrasted T1, T2, FLAIR, diffusion with ADC map and post gadolinium contrast T1 sequences. Images stored on PACS. CONTRAST TYPE AND DOSE: 10 mL Dotarem. RENAL FUNCTION: Not indicated. ACR Type II contrast agent associated with few, if any, unconfounded cases of NSF LIMITATIONS: There is some patient motion artifact. FINDINGS: ANATOMY: No anomalies. Normal vascular flow voids. Pituitary fossa normal. CSF SPACES: Lateral ventricles are prominent secondary to atrophy. CEREBRUM: There is a cystic lesion in the right posterior parietal lobe. There does not appear to be a large amount of associated edema. This is smaller than it was on 12/03/2018. More homogeneously t here is considerable increased white matter signal on FLAIR imaging. Cystic. POSTERIOR FOSSA: No signal alteration. No hemorrhage. No edema, masses, or mass effect. Internal gaurav tory canals, cerebellopontine angles, mastoids normal. No enhancing lesions. No abnormal enhancement post contrast. DIFFUSION IMAGING: Negative for acute or subacute infarction. ORBITS: No masses. Globes normal. PARANASAL SINUSES: No fluid levels. Mucosa normal. OTHER: No other significant finding. IMPRESSION: Cystic lesion in the right posterior parietal lobe is a likely metastatic focus. This i s less prominent than it was on the earlier study. Chronic microvascular ischemic changes are presen t. Involutional changes of aging. EVIDENCE OF ACUTE STROKE: NO. TECHNICAL DOCUMENTATION: JOB ID: [id number]- All Rights Reserved Reading location - IP/workstation name: [email or web address]
[2019-03-01] MEDS: DEXAMETHASONE 4 MG TABLET PO SCH (17:08)
[2019-03-01] MEDS: CLONAZEPAM 1 MG TABLET PO SCH ×2 (17:12→19:30)
[2019-03-02] MEDS: GUAIFENESIN 600 MG TABLET.SA PO SCH ×3 (02:39→22:52)
[2019-03-02] MEDS: METHADONE HCL 10 MG TABLET PO SCH ×2 (05:35→17:11)
[2019-03-02] MEDS: PHENYTOIN SODIUM INJ/PF 100 MG/2 ML SDV IV SCH ×2 (05:36→13:40)
[2019-03-02 06:56] LABS: HEMATOCRIT 34.2 % (37.9-51.0); HEMOGLOBIN 11.1 g/dL (13.5-17.0); MEAN CORPUSCULAR HEMOGLOBIN 27.4 pg (27.0-33.4); MEAN CORPUSCULAR HGB CONC 32.6 g/dL (32.0-36.0); MEAN CORPUSCULAR VOLUME 84 fl (80-97); PLATELET COUNT 306 10^3/uL (150-450); RED BLOOD COUNT 4.06 10^6/uL (4.35-5.55); RED CELL DISTRIBUTION WIDTH 17.3 % (11.5-14.0)
[2019-03-02 07:16] LABS: ALBUMIN 2.5 g/dL (3.5-5.0); ALKALINE PHOSPHATASE 475 U/L (38-126); ASPARTATE AMINO TRANSFERASE 162 U/L (17-59); BILIRUBIN,DIRECT 0.3 mg/dL (0.0-0.4); BILIRUBIN,TOTAL 0.5 mg/dL (0.2-1.3); BLOOD UREA NITROGEN 8 mg/dL (7-20); CALCIUM 8.2 mg/dL (8.4-10.2); CHLORIDE 94 mmol/L (98-107); GLUCOSE 77 mg/dL (75-110); TOTAL PROTEIN 4.7 g/dL (6.3-8.2)
[2019-03-02 07:21] LABS: CARBON DIOXIDE 37 mmol/L (22-30)
[2019-03-02 07:25] LABS: ANION GAP 4 (5-19)
[2019-03-02 07:26] LABS: ABSOLUTE LYMPHOCYTES# (MANUAL) 1.2 10^3/uL (0.5-4.7); ABSOLUTE MONOCYTES # (MANUAL) 0.8 10^3/uL (0.1-1.4); BAND NEUTROPHILS % (MANUAL) 3 % (3-5); BASOPHILS % (MANUAL) 0 % (0-2); EOSINOPHILS % (MANUAL) 0 % (0-6); LYMPHOCYTES % (MANUAL) 9 % (13-45); MONOCYTES % (MANUAL) 6 % (3-13); SEGMENTED NEUTROPHILS % (MAN) 82 % (42-78); TOTAL CELLS COUNTED 100
[2019-03-02 07:28] LABS: ANISOCYTOSIS 1+; HYPOCHROMASIA 2+; PLATELET COMMENT ADEQUATE; STOMATOCYTES 1+
--- NOTE | 2019-03-02 08:16 | PDOC PROGRESS REPORT ---
Subjective Progress Note for:: 03/02/19 Subjective:: Patient still very lethargic and confused over the last 24 hours. Reviewed MRI results with family, the brain lesion actually looks smaller and there is not more edema but there is more atrophy and microvascular changes consistent with probable progression of underlying dementia. In addition, I believe the loading on the seizure medications probably also contributed, along with the seizure itself. Regardless, the really wants to take him home, she does not want to consider further therapy, and she feels ready to consider comfort care. To that extent, I have called community hospice quality control representative Shanda to meet with patient this afternoon and make arrangements for home hospice. needs to go home and set up the house to allow hospital bed to be placed. Reason For Visit: PNEUMONIA,LUNG CANCER, HYPOKALEMIA, ALTERED MENTAL Physical Exam Vital Signs: Temp Pulse Resp BP Pulse Ox 98.2 F 85 18 129/65 H 98 03/02/19 03:26 03/02/19 03:26 03/02/19 03:26 03/02/19 03:26 03/02/19 03:26 Intake & Output 03/01/19 03/02/19 03/03/19 06:59 06:59 06:59 Intake Total 1890 1820 Output Total 1950 1705 Balance -60 115 Weight 63.6 kg 65.1 kg General appearance: PRESENT: no acute distress, well-developed, well-nourished Head exam: PRESENT: atraumatic, normocephalic Eye exam: PRESENT: conjunctiva pink, EOMI, PERRLA. ABSENT: scleral icterus Ear exam: PRESENT: normal external ear exam Mouth exam: PRESENT: moist, tongue midline Neck exam: ABSENT: carotid bruit, JVD, lymphadenopathy, thyromegaly Respiratory exam: PRESENT: clear to auscultation rosaura. ABSENT: rales, rhonchi, wheezes Cardiovascular exam: PRESENT: RRR. ABSENT: diastolic murmur, rubs, systolic murmur Pulses: PRESENT: normal dorsalis pedis pul Vascular exam: PRESENT: normal capillary refill GI/Abdominal exam: PRESENT: normal bowel sounds, soft. ABSENT: distended, guarding, mass, organolmegaly, rebound, tenderness Rectal exam: PRESENT: deferred Extremities exam: PRESENT: full ROM. ABSENT: calf tenderness, clubbing, pedal edema Neurological exam: PRESENT: alert, awake, oriented to person, oriented to place, oriented to time, oriented to situation, CN II-XII grossly intact. ABSENT: motor sensory deficit Psychiatric exam: PRESENT: appropriate affect, normal mood. ABSENT: homicidal ideation, suicidal ideation Skin exam: PRESENT: dry, intact, warm. ABSENT: cyanosis, rash Results Laboratory Results: 03/02/19 06:30 03/02/19 06:30 03/02/19 03/02/19 06:30 06:30 WBC 13.0 H RBC 4.06 L Hgb 11.1 L Hct 34.2 L MCV 84 MCH 27.4 MCHC 32.6 RDW 17.3 H Plt Count 306 Seg Neutrophils % Not Reportable Lymphocytes % Not Reportable Monocytes % Not Reportable Eosinophils % Not Reportable Basophils % Not Reportable Absolute Neutrophils Not Reportable Absolute Lymphocytes Not Reportable Absolute Monocytes Not Reportable Absolute Eosinophils Not Reportable Absolute Basophils Not Reportable Sodium 134.8 L Potassium 3.0 L* Chloride 94 L Carbon Dioxide 37 H Anion Gap 4 L BUN 8 Creatinine 0.58 Est GFR ( Amer) > 60 Est GFR (Non-Af Amer) > 60 Glucose 77 Calcium 8.2 L Total Bilirubin 0.5 AST 162 H Alkaline Phosphatase 475 H Total Protein 4.7 L Albumin 2.5 L 02/27/19 10:51 Sputum Gram Stain - Final 02/27/19 10:51 Sputum Sputum Culture - Final Staphylococcus Aureus C.albicans/C.dubliniensis Normal Audrey 02/27/19 05:45 Blood Blood Culture - Final Enterococcus Faecalis(Group D) 02/27/19 06:10 Blood Blood Culture - Final Enterococcus Faecalis(Group D) Impressions: Chest X-Ray 02/27/19 05:43 IMPRESSION: Interval placement of an [id number] catheter. Other findings of the chest are stable copyright 2011 [email or web address]- All Rights Reserved Head CT 02/27/19 16:15 IMPRESSION: LOW-ATTENUATION PREDOMINANTLY CYSTIC LESION IN THE POSTERIOR RIGHT PARIETAL LOBE. SIMILAR APPEARANCE TO THE PRIOR STUDY. MINIMAL AREA OF INCREASED ATTENUATION ALONG THE INFERIOR PORTION, POSSIBLE AREA OF MINIMAL HEMORRHAGE. CHRONIC CHANGES OF ATROPHY AND MICROVASCULAR ISCHEMIA. EVIDENCE OF ACUTE STROKE: NO. Head MRI 03/01/19 00:00 IMPRESSION: Cystic lesion in the right posterior parietal lobe is a likely metastatic focus. This is less prominent than it was on the earlier study. Chr onic microvascular ischemic changes are present. Involutional changes of aging. EVIDENCE OF ACUTE STROKE: NO. Assessment & Plan - Diagnosis (1) Sepsis Qualifiers: Sepsis type: Streptococcus, other Sepsis acute organ dysfunction status: without acute organ dysfunction Qualified Code(s): A40.8 - Other streptococcal sepsis Is this a current diagnosis for this admission?: Yes Plan: Resolved (2) Acute respiratory failure Qualifiers: Respiratory failure complication: hypoxia Qualified Code(s): J96.01 - Acute respiratory failure with hypoxia Is this a current diagnosis for this admission?: Yes Plan: Improved but now requires chronic O2. (3) Pneumonia Qualifiers: Pneumonia type: due to group B Streptococcus Laterality: left Lung location: lower lobe of lung Qualified Code(s): J15.3 - Pneumonia due to streptococcus, group B Is this a current diagnosis for this admission?: Yes Plan: Improved, he had 2 of 2 blood cultures positive for enterococcus upon admission, but actually was on Levaquin and improved clinically but when we saw GPC's, we decided to add Vanco. I believe probably the enterococcus would be sensitive to Levaquin. However that also may lower the seizure threshold. His repeat blood cultures are negative for 24 hours so I believe that is probably cleared. I think it is okay to discharge him without any antibiotics. (4) Lung cancer Qualifiers: Laterality: left Lung location: lower lobe of lung Qualified Code(s): C34.32 - Malignant neoplasm of lower lobe, left bronchus or lung Is this a current diagnosis for this admission?: Yes Plan: No further treatment planned (5) Confusion Is this a current diagnosis for this admission?: Yes Plan: Multifactorial related to the brain tumor as well as seizure, and dementia underlying. - Time Time Spent with patient: 35 or more minutes
[2019-03-02] MEDS ORDERED: POTASSIUM CHLORIDE 10 MEQ CAPSULE.ER PO ONE (08:35)
[2019-03-02] MEDS: 1/2 NORMAL SALINE 1,000 ML IV PRN ×2 (08:37→20:46)
[2019-03-02] MEDS ORDERED: POTASSIUM CHLORIDE 20 MEQ PACKET PO ONE (09:00)
[2019-03-02] MEDS ORDERED: OXYCODONE HCL IR 5 MG TABLET PO PRN (10:11)
[2019-03-02] MEDS: DOCUSATE SODIUM 100 MG CAPSULE PO SCH ×3 (10:18→17:05)
[2019-03-02] MEDS: TAMSULOSIN HCL 0.4 MG CAP.SR.24H PO SCH (10:19)
[2019-03-02] MEDS ORDERED: LEVETIRACETAM 500 MG TABLET PO ONE (10:30)
[2019-03-02] MEDS: FINASTERIDE 5 MG TABLET PO SCH (10:57)
[2019-03-02] MEDS: SERTRALINE HCL 50 MG TABLET PO SCH (10:57)
[2019-03-02] MEDS: FAMOTIDINE 20 MG TABLET PO SCH ×2 (10:57→22:52)
[2019-03-02] MEDS: ENOXAPARIN SODIUM INJ 40 MG/0.4 ML DISP.SYRIN SUBCUT SCH (10:59)
[2019-03-02] MEDS: VANCOMYCIN HCL 1,000 MG in DEXTROSE 5%-WATER 250 ML IV SCH (11:00)
[2019-03-02] MEDS ORDERED: LEVETIRACETAM ORAL SOLN 500 MG/5 ML UDCUP PO ONE (11:00)
[2019-03-02] MEDS ORDERED: FLUCONAZOLE 100 MG TABLET PO ONE (11:00)
[2019-03-02 11:27] LABS: VANCOMYCIN,TROUGH 8.1 ug/mL (5.0-20.0)
--- NOTE | 2019-03-02 13:11 | PDOC PROGRESS REPORT ---
Subjective Progress Note for:: 03/02/19 Subjective:: This is 73 years old male patient with history of stage IV lung cancer presented with chief complaint of cough of 3 days duration and altered mental status. At presentation patient found to be leukocytosis and lactic acidosis. This morning the lab reported to me his 2 blood cultures are positive for Enterococcus faecalis which is sensitive to ampicillin penicillin and vancomycin. Patient has been on Levaquin and vancomycin so I discontinued the Levaquin and continue with the bank. 03/02/2019: Relatively patient is more awake and responsive. Per Dr. Myles patient's does not want further therapy or other additional measures. She opted for comfort care only. Dr. Myles has contacted community puncher Shanda was going to have discussion this afternoon with his for possible home hospice. I did Keppra to his phenytoin for seizure prophylaxis. Reason For Visit: PNEUMONIA,LUNG CANCER, HYPOKALEMIA, ALTERED MENTAL Physical Exam Vital Signs: Temp Pulse Resp BP Pulse Ox 98.3 F 93 16 137/77 H 96 03/02/19 08:18 03/02/19 08:18 03/02/19 08:18 03/02/19 08:18 03/02/19 08:18 Intake & Output 03/01/19 03/02/19 03/03/19 06:59 06:59 06:59 Intake Total 1890 2820 Output Total 1950 1705 Balance -60 1115 Weight 63.6 kg 65.1 kg Results Laboratory Results: 03/02/19 06:30 03/02/19 10:40 03/02/19 03/02/19 03/02/19 06:30 06:30 10:40 WBC 13.0 H RBC 4.06 L Hgb 11.1 L Hct 34.2 L MCV 84 MCH 27.4 MCHC 32.6 RDW 17.3 H Plt Count 306 Seg Neutrophils % Not Reportable Lymphocytes % Not Reportable Monocytes % Not Reportable Eosinophils % Not Reportable Basophils % Not Reportable Absolute Neutrophils Not Reportable Absolute Lymphocytes Not Reportable Absolute Monocytes Not Reportable Absolute Eosinophils Not Reportable Absolute Basophils Not Reportable Sodium 134.8 L Potassium 3.0 L* Chloride 94 L Carbon Dioxide 37 H Anion Gap 4 L BUN 8 Creatinine 0.58 0.62 Est GFR ( Amer) > 60 > 60 Est GFR (Non-Af Amer) > 60 > 60 Glucose 77 Calcium 8.2 L Total Bilirubin 0.5 AST 162 H Alkaline Phosphatase 475 H Total Protein 4.7 L Albumin 2.5 L 02/27/19 10:51 Sputum Gram Stain - Final 02/27/19 10:51 Sputum Sputum Culture - Final Staphylococcus Aureus C.albicans/C.dubliniensis Normal Audrey 02/27/19 05:45 Blood Blood Culture - Final Enterococcus Faecalis(Group D) 02/27/19 06:10 Blood Blood Culture - Final Enterococcus Faecalis(Group D) Impressions: Chest X-Ray 02/27/19 05:43 IMPRESSION: Interval placement of an Heblpm-[id number]-[id number] catheter. Other findings of the chest are stable copyright 2011 [employer]- All Rights Reserved Head CT 02/27/19 16:15 IMPRESSION: LOW-ATTENUATION PREDOMINANTLY CYSTIC LESION IN THE POSTERIOR RIGHT PARIETAL LOBE. SIMILAR APPEARANCE TO THE PRIOR STUDY. MINIMAL AREA OF INCREASED ATTENUATION ALONG THE INFERIOR PORTION, POSSIBLE AREA OF MINIMAL HEMORRHAGE. CHRONIC CHANGES OF ATROPHY AND MICROVASCULAR ISCHEMIA. EVIDENCE OF ACUTE STROKE: NO. Head MRI 03/01/19 00:00 IMPRESSION: Cystic lesion in the right posterior parietal lobe is a likely metastatic focus. This is less prominent than it was on the earlier study. Chronic microvascular ischemic changes are present. Involutional changes of aging. EVIDENCE OF ACUTE STROKE: NO. Assessment and Plan - Diagnosis (1) Gram-positive bacteremia Is this a current diagnosis for this admission?: Yes Plan: Repeat blood culture is negative. (2) Sepsis Is this a current diagnosis for this admission?: Yes Plan: Most probably pulmonary origin (3) Pneumonia Is this a current diagnosis for this admission?: Yes Plan: Continue current antibiotics (4) Acute encephalopathy Is this a current diagnosis for this admission?: Yes Plan: May be related to his pneumonia and sepsis. Since he has stage IV lung cancer the possibility of brain metastasis is considered by Dr. Myles and he will have MRI of the brain with contrast. (5) Stage IV lung CA Is this a current diagnosis for this admission?: Yes Plan: Management per Dr. Myles.
[2019-03-02] MEDS: CLONAZEPAM 1 MG TABLET PO SCH (17:11)
[2019-03-02] MEDS: DEXAMETHASONE 4 MG TABLET PO SCH (17:12)
[2019-03-02] MEDS ORDERED: LEVETIRACETAM 500 MG TABLET PO SCH (22:00)
[2019-03-02] MEDS: LEVETIRACETAM ORAL SOLN 500 MG/5 ML UDCUP PO SCH (22:51)
[2019-03-02] MEDS: VANCOMYCIN HCL 1,250 MG in DEXTROSE 5%-WATER 250 ML IV SCH ×2 (23:05→23:33)
[2019-03-02] MEDS ORDERED: VANCOMYCIN HCL 1,250 MG in DEXTROSE 5%-WATER 250 ML IV ONE (23:30)
[2019-03-03] MEDS: METHADONE HCL 10 MG TABLET PO SCH (06:01)
--- NOTE | 2019-03-03 08:43 | PDOC PROGRESS REPORT ---
Subjective Progress Note for:: 03/03/19 Subjective:: Seems to be a little bit more interested in getting up, more alert, yesterday had a long discussion with patient and family along with hospice, everything set up for discharge, today spent 45 minutes in discussion and coordination of care. Reason For Visit: PNEUMONIA,LUNG CANCER, HYPOKALEMIA, ALTERED MENTAL Physical Exam Vital Signs: Temp Pulse Resp BP Pulse Ox 98.4 F 95 22 H 106/58 L 97 03/03/19 08:07 03/03/19 08:07 03/03/19 08:07 03/03/19 08:07 03/03/19 08:07 Intake & Output 03/02/19 03/03/19 03/04/19 06:59 06:59 06:59 Intake Total 2820 1560 Output Total 1705 1800 Balance 1115 -240 Weight 65.1 kg 63.8 kg General appearance: PRESENT: no acute distress, well-developed, well-nourished Head exam: PRESENT: atraumatic, normocephalic Eye exam: PRESENT: conjunctiva pink, EOMI, PERRLA. ABSENT: scleral icterus Ear exam: PRESENT: normal external ear exam Mouth exam: PRESENT: moist, tongue midline Neck exam: ABSENT: carotid bruit, JVD, lymphadenopathy, thyromegaly Respiratory exam: PRESENT: clear to auscultation rosaura. ABSENT: rales, rhonchi, wheezes Cardiovascular exam: PRESENT: RRR. ABSENT: diastolic murmur, rubs, systolic murmur Pulses: PRESENT: normal dorsalis pedis pul Vascular exam: PRESENT: normal capillary refill GI/Abdominal exam: PRESENT: normal bowel sounds, soft. ABSENT: distended, guarding, mass, organolmegaly, rebound, tenderness Rectal exam: PRESENT: deferred Extremities exam: PRESENT: full ROM. ABSENT: calf tenderness, clubbing, pedal edema Neurological exam: PRESENT: alert, awake, oriented to person, oriented to place, oriented to time, oriented to situation, CN II-XII grossly intact. ABSENT: motor sensory deficit Psychiatric exam: PRESENT: appropriate affect, normal mood. ABSENT: homicidal ideation, suicidal ideation Skin exam: PRESENT: dry, intact, warm. ABSENT: cyanosis, rash Results Laboratory Results: 03/02/19 06:30 03/02/19 10:40 03/02/19 10:40 Creatinine 0.62 Est GFR ( Amer) > 60 Est GFR (Non-Af Amer) > 60 Impressions: Chest X-Ray 02/27/19 05:43 IMPRESSION: Interval placement of an Dhsmnl-c-Jcni catheter. Other findings of the chest are stable copyright 2011 [employer]- All Rights Reserved Head CT 02/27/19 16:15 IMPRESSION: LOW-ATTENUATION PREDOMINANTLY CYSTIC LESION IN THE POSTERIOR RIGHT PARIETAL LOBE. SIMILAR APPEARANCE TO THE PRIOR STUDY. MINIMAL AREA OF INCREASED ATTENUATION ALONG THE INFERIOR PORTION, POSSIBLE AREA OF MINIMAL HEMORRHAGE. CHRONIC CHANGES OF ATROPHY AND MICROVASCULAR ISCHEMIA. EVIDENCE OF ACUTE STROKE: NO. Head MRI 03/01/19 00:00 IMPRESSION: Cystic lesion in the right posterior parietal lobe is a likely metastatic focus. This is less prominent than it was on the earlier study. Chronic microvascular ischemic changes are present. Involutional changes of aging. EVIDENCE OF ACUTE STROKE: NO. Assessment & Plan - Diagnosis (1) Sepsis Qualifiers: Sepsis type: Streptococcus, other Sepsis acute organ dysfunction status: [facility] acute organ dysfunction Qualified Code(s): A40.8 - Other streptococcal sepsis Is this a current diagnosis for this admission?: Yes Plan: Resolved (2) Acute respiratory failure Qualifiers: Respiratory failure complication: hypoxia Qualified Code(s): J96.01 - Acute respiratory failure with hypoxia Is this a current diagnosis for this admission?: Yes Plan: Resolved but baseline hypoxia now, needs home O2 (3) Pneumonia Qualifiers: Pneumonia type: due to group B Streptococcus Laterality: left Lung location: lower lobe of lung Qualified Code(s): J15.3 - Pneumonia due to streptococcus, group B Is this a current diagnosis for this admission?: Yes Plan: Resolved (4) Lung cancer Qualifiers: Laterality: left Lung location: lower lobe of lung Qualified Code(s): C34.32 - Malignant neoplasm of lower lobe, left bronchus or lung Is this a current diagnosis for this admission?: Yes Plan: No further treatment planned (5) Confusion Is this a current diagnosis for this admission?: Yes Plan: We may need to change her back to Dilantin because of cost of Keppra
--- NOTE | 2019-03-03 08:47 | PDOC DISCHARGE SUMMARY ---
General - Admit/Disc Date/PCP Admission Date/Primary Care Provider: 02/27/19 08:27 ALCON ROSAS MD Discharge Date: 03/03/19 - Discharge Diagnosis (1) Gram-positive bacteremia Is this a current diagnosis for this admission?: Yes (2) Sepsis Is this a current diagnosis for this admission?: Yes (3) Pneumonia Is this a current diagnosis for this admission?: Yes (4) Acute encephalopathy Is this a current diagnosis for this admission?: Yes (5) Stage IV lung CA Is this a current diagnosis for this admission?: Yes - Additional Information Resuscitation Status: Do Not Resuscitate Home Medications: Clonazepam [Klonopin] 0.5 mg PO QHS 02/27/19 Dexamethasone [Decadron 4 mg Tablet] 4 mg PO DAILY 02/27/19 Docusate Sodium [Colace 100 mg Capsule] 100 mg PO TID 02/27/19 Ergocalciferol (Vitamin D2) [Drisdol 50,000 unit (1.25MG) Capsule] 50,000 unit PO SALAS@2200 02/27/19 Finasteride [Proscar 5 mg Tablet] 5 mg PO DAILY 02/27/19 Levalbuterol HCl [Xopenex Neb 0.63 mg/3 ml Ampul] 3 ml NEB Q6HP PRN 02/27/19 Methadone HCl [Dolophine HCl] 5 mg PO Q12 02/27/19 Ondansetron HCl [Zofran 8 mg Tablet] 8 mg PO Q8HP PRN 02/27/19 Polyethylene Glycol 3350 [Miralax Powder 17 gm/Packet] 17 gm PO DAILYP PRN 02/27/19 Ranitidine HCl [Zantac 75] 75 mg PO DAILY 02/27/19 Sertraline HCl [Zoloft 50 mg Tablet] 50 mg PO DAILY 02/27/19 Tamsulosin HCl [Flomax 0.4 mg Cap.sr] 0.8 mg PO DAILY 02/27/19 Umeclidinium Brm/Vilanterol Tr [Anoro Ellipta 62.5-25 Mcg INH] 1 puff IH DAILY 02/27/19 History of Present Illness History of Present Illness: ESTEBAN CHOI is a 73 year old male who came to the emergency room today complaining of confusion and cough according to the the patient has been coughing for the last 3 or 4 days, this morning when he got up to go the bathroom he became confused and "could not find the bed". When EMS picked him up the oxygen saturations were in the 80s. Patient's potassium was found to be low at 2.7 and lactic acid was elevated at 4.3 Patient has a history of lung cancer stage IV and is currently undergoing treatments. Patient's chest x-ray did not reveal pneumonia but certainly this seems to be a potential diagnosis as well as sepsis and hypokalemia. Patient will be admitted to hospital for IV antibiotics. Hospital Course Hospital Course: This is 73 years old male patient with history of stage IV lung cancer presented with chief complaint of cough of 3 days duration and altered mental status. At presentation patient found to be leukocytosis and lactic acidosis. This morning the lab reported to me his 2 blood cultures are positive for Enterococcus f aecalis which is sensitive to ampicillin penicillin and vancomycin. Patient has been on Levaquin and vancomycin so I discontinued the Levaquin and continue with the bank. 03/02/2019: Relatively patient is more awake and responsive. Per Dr. Myles patient's does not want further therapy or other additional measures. She opted for comfort care only. Dr. Myles has contacted community hospice spiritual care coordinator Shanda was going to have discussion this afternoon with his for possible home hospice. I did Keppra to his phenytoin for seizure prophylaxis. 03/03/2019: No significant change overnight. Patient is seen resting in bed comfortably. He is awake alert. Reportedly patient is less agitated and responds appropriately. Community hospice lines and if any has already arranged the necessary equipment for home hospice. His told me that she cannot afford to buy Keppra so I have to switch him back to Dilantin. Patient is going to be discharged to home hospice. Physical Exam Vital Signs: Temp Pulse Resp BP Pulse Ox 98.4 F 95 22 H 106/58 L 97 03/03/19 08:07 03/03/19 08:07 03/03/19 08:07 03/03/19 08:07 03/03/19 08:07 Intake & Output 03/02/19 03/03/19 03/04/19 06:59 06:59 06:59 Intake Total 2820 1560 Output Total 1705 1800 Balance 1115 -240 Weight 65.1 kg 63.8 kg Results Laboratory Results: 03/02/19 06:30 03/02/19 10:40 03/02/19 10:40 Creatinine 0.62 Est GFR ( Amer) > 60 Est GFR (Non-Af Amer) > 60 Impressions: Chest X-Ray 02/27/19 05:43 IMPRESSION: Interval placement of an Hriznj-j-Anri catheter. Other findings of the chest are stable copyright 2011 [employer]- All Rights Reserved Head CT 02/27/19 16:15 IMPRESSION: LOW-ATTENUATION PREDOMINANTLY CYSTIC LESION IN THE POSTERIOR RIGHT PARIETAL LOBE. SIMILAR APPEARANCE TO THE PRIOR STUDY. MINIMAL AREA OF INCREASED ATTENUATION ALONG THE INFERIOR PORTION, POSSIBLE AREA OF MINIMAL HEMORRHAGE. CHRONIC CHANGES OF ATROPHY AND MICROVASCULAR ISCHEMIA. EVIDENCE OF ACUTE STROKE: NO. Head MRI 03/01/19 00:00 IMPRESSION: Cystic lesion in the right posterior parietal lobe is a likely metastatic focus. This is less prominent than it was on the earlier study. Chronic microvascular ischemic changes are present. Involutional changes of aging. EVIDENCE OF ACUTE STROKE: NO. Qualifiers - * PATIENT BEING DISCHARGED WITH ANY OF THE FOLLOWING DIAGNOSIS: No Acute Heart Failure - Is this a Heart Failure Patient?: No LVEF < 40%?: No- if no continue to question #3 3. Anticoagulant therapy for permanect/persistent/paraoxysmal Afib or Aflutter: N/A
[2019-03-03] MEDS ORDERED: VANCOMYCIN HCL 1,250 MG in DEXTROSE 5%-WATER 250 ML IV SCH (10:00)
[2019-03-03] MEDS: DOCUSATE SODIUM 100 MG CAPSULE PO SCH (10:23)
[2019-03-03] MEDS: LEVETIRACETAM ORAL SOLN 500 MG/5 ML UDCUP PO SCH (10:37)
[2019-03-03] MEDS: ENOXAPARIN SODIUM INJ 40 MG/0.4 ML DISP.SYRIN SUBCUT SCH (10:37)
[2019-03-03] MEDS: TAMSULOSIN HCL 0.4 MG CAP.SR.24H PO SCH (10:38)
[2019-03-03] MEDS: SERTRALINE HCL 50 MG TABLET PO SCH (10:38)
[2019-03-03] MEDS: FINASTERIDE 5 MG TABLET PO SCH (10:38)
[2019-03-03] MEDS: GUAIFENESIN 600 MG TABLET.SA PO SCH (10:38)
[2019-03-03] MEDS: FAMOTIDINE 20 MG TABLET PO SCH (10:38)
[2019-03-03 12:28] VITALS: BP 140/87
== END 2019-03-03 12:56 | disposition hospice, home (50) | DRG 871 ==
LOC: ER 05:19 → EH 08:27 → 4S 09:38 → 3S 02-28 17:55
PROVIDERS: ADMIT Internal Medicine; ATTEND Internal Medicine
DX: A40.8 Other streptococcal sepsis (principal); J96.01 Acute respiratory failure with hypoxia; Z66 Do not resuscitate; J15.3 Pneumonia due to streptococcus, group B; G93.41 Metabolic encephalopathy; J44.1 Chronic obstructive pulmonary disease with (acute) exacerbation; C79.31 Secondary malignant neoplasm of brain; C34.32 Malignant neoplasm of lower lobe, left bronchus or lung; E87.6 Hypokalemia; R33.9 Retention of urine, unspecified; Z90.2 Acquired absence of lung [part of]
CPT/HCPCS: 36415; 36591; 70450; 70553; 71045; 80053; 80202; 81001; 82565; 82803; 83605; 83735; 84153; 85025; 86900; 86901; 87040; 87070; 87077; 87186; 87205; 93005; 93010; 94640; 99285; A9576; J0360; J1165; J1642; J1650; J1956; J3370; J3480; J3490; J7060

== ENCOUNTER 2019-03-06 20:25 | Emergency (ER) | payer MEDICARE, OTHER ==
[2019-03-06] MEDS ORDERED: HYDROMORPHONE HCL INJ/PF 2 MG/ML AMPULE IV ONE (20:40)
--- NOTE | 2019-03-06 20:44 | ER Document Report ---
ED General - General Chief Complaint: Pain Stated Complaint: WEAKNESS Time Seen by Provider: 03/06/19 20:32 Primary Care Provider: ALCON ROSAS MD [Primary Care Provider] - Follow up as needed BRANDT JARRETT MD [ACTIVE STAFF] - Follow up as needed Notes: 73-year-old male with chronic end stage IV lung cancer recently transitioned to home hospice presents with uncontrolled pain. Belly pain back pain. Constant. He is on 5 methadone 3 times daily but did not get any prescription for breakthrough pain and is yet to see the hospice nurse. Family wishes her pain control primarily and discharged home. TRAVEL OUTSIDE OF THE [place] IN LAST 30 DAYS: No - Related Data Allergies/Adverse Reactions: Penicillins Allergy (Severe, Verified 02/27/19 05:30) shock clarithromycin Allergy (Verified 02/27/19 05:30) fluconazole [From Diflucan] Allergy (Verified 02/27/19 05:30) Tachycardia indomethacin [From Indocin] Allergy (Verified 02/27/19 05:30) Migraine meperidine [From Demerol] Allergy (Verified 02/27/19 05:30) Syncope pseudoephedrine [From Sudafed] Allergy (Verified 02/27/19 05:30) tremor zolpidem [From Ambien] Allergy (Verified 02/27/19 05:30) acetaminophen [From Fioricet] Adverse Reaction (Verified 02/27/19 12:24) butalbital [From Fioricet] Adverse Reaction (Verified 02/27/19 12:24) Past Medical History - Social History Smoking Status: Former Smoker Family History: Reviewed & Not Pertinent - Past Medical History Cardiac Medical History: Denies: Hx Coronary Artery Disease, Hx Heart Attack, Hx Hypertension Pulmonary Medical History: Reports: Hx Asthma, Hx COPD, Hx Pneumonia Denies: Hx Bronchitis Neurological Medical History: Denies: Hx Cerebrovascular Accident, Hx Seizures Renal/ Medical History: Denies: Hx Peritoneal Dialysis Malignancy Medical History: Reports Hx Lung Cancer GI Medical History: Denies: Hx Hepatitis, Hx Hiatal Hernia, Hx Ulcer Musculoskeletal Medical History: Denies Hx Arthritis Psychiatric Medical History: Reports: Hx Depression Infectious Medical History: Denies: Hx Hepatitis Past Surgical History: Reports: Other - Patient has 2 back surgeries left-sided partial lung resection. Denies: Hx Open Heart Surgery, Hx Pacemaker - Immunizations Hx Pneumococcal Vaccination: 01/01/17 Review of Systems - Review of Systems Notes: REVIEW OF SYSTEMS GEN: Weakness ENT: Denies sore throat, nasal discharge, ear pain EYES: Denies blurry vision, eye pain, discharge CV: Denies chest pain, palpitations, edema RESP: Denies cough, shortness of breath, wheezing GI: Pain MSK: Back pain SKIN: Denies rash, skin lesions LYMPH: Denies swollen glands/lymph nodes NEURO: Denies headache, focal weakness or numbness, dizziness PSYCH: Denies depression, suicidal or homicidal ideation PHYSICAL EXAMINATION General: Wasted likely ill appearing Head: Atraumatic, normocephalic ENT: Mouth normal, oropharynx moist, no exudates or tonsillar enlargement Eyes: Conjunctiva normal, pupils equal, lids normal Neck: No JVD, supple, no guarding CVS: Normal rate, regular rhythm, no murmurs Resp: No resp distress, equal and normal breath sounds bilaterally GI: Nondistended, soft, no tenderness to palpation, no rebound or guarding Ext: No deformities, no edema, normal range of motion in upper and lower ext Back: No CVA or midline TTP Skin: No rash, warm Lymphatic: No lymphadeopathy noted Neuro: Awake, alert. Face symmetric. GCS 15. Physical Exam - Vital signs Vitals: Temp 98.3 F 03/06/19 20:34 Course - Re-evaluation Re-evalutation: 03/06/19 20:41 Cancerrelated pain uncontrolled on 5 his methadone twice daily. Does not have any breakthrough pain meds. Family wishes, verified by me, her DNR/DNI, comfort only. No monitor needed. No IV fluids needed except for IV meds. Hospice nurse Juli is in the department into visiting the patient now. I will give him a dose of IV Dilaudid, followed up with oral morphine, and discharged with prescription for morphine liquid p.o. to follow-up with hospice. I have discussed with the patient there likely diagnosis, aftercare plan, follow-up plans and my usual and customary return precautions. They verbalized understanding of this. - Vital Signs Vital signs: Temp Pulse Resp BP Pulse Ox 98.3 F 03/06/19 20:34 Discharge - Discharge Clinical Impression: Cancer associated pain Condition: Fair Disposition: HOME, SELF-CARE Prescriptions: Morphine Sulfate [Morphine Oral Soln 10 Mg/5 Ml Udcup] 10 mg PO Q4HP PRN #24 udc PRN Reason: Ondansetron [Zofran Odt 4 mg Tablet] 1 - 2 tab PO Q4H PRN #15 tab.rapdis PRN Reason: For Nausea/Vomiting Referrals: ALCON ROSAS MD [Primary Care Provider] - Follow up as needed BRANDT JARRETT MD [ACTIVE STAFF] - Follow up as needed
[2019-03-06] MEDS ORDERED: LIDOCAINE 2% URO-JET 5 ML KIT MM ONE (20:52)
[2019-03-06] MEDS ORDERED: ONDANSETRON ODT 4 MG TAB (6 TAB/ER DISP) PO PRN (21:40)
[2019-03-06] MEDS ORDERED: CLINDAMYCIN 300 MG/D5W RTU 300 MG/50 ML RTUPB IV ONE (21:48)
[2019-03-06] MEDS ORDERED: HYDROMORPHONE HCL INJ/PF 2 MG/ML AMPULE SUBCUT ONE (21:53)
[2019-03-07 00:29] VITALS: BP 157/89
== END 2019-03-06 22:00 | disposition home or self-care (01) ==
LOC: ER 20:25
DX: C34.90 Malignant neoplasm of unspecified part of unspecified bronchus or lung (principal); R10.9 Unspecified abdominal pain; M54.9 Dorsalgia, unspecified; J44.9 Chronic obstructive pulmonary disease, unspecified
CPT/HCPCS: 96376; 99284; 51702; 96374; J1170; A9270 ×2; J3490